=== PATIENT | male | born 1960 | race Hispanic/Latino ===

== ENCOUNTER 2021-08-04 08:52 | Inpatient (IN) | payer OTHER ==
--- OUTSIDE RECORDS SUMMARY | 2021-08-04 08:56 | XMS REPORT | Continuity of Care Document ---
:1960 Author Organization [facility] t Address [address] [place] [address] Dr. Rapp [address] [place] [id number] Care Team Providers Name Role Phone Unavailable Unavailable Unavailable Problems This patient has no known problems. Allergies, Adverse Reactions, Alerts This patient has no known allergies or adverse reactions. Medications This patient has no known medications. Procedures This patient has no known procedures. Results This patient has no known results.
[2021-08-04] MEDS ORDERED: NA CHLORIDE 0.9% 2,000 ML ONE (09:40)
[2021-08-04] MEDS ORDERED: NA CHLORIDE 0.9% 250 ML ONE (10:05)
[2021-08-04] MEDS ORDERED: PANTOPRAZOLE 40 MG INJ ONE (10:05)
[2021-08-04] MEDS ORDERED: NA CHLORIDE 0.9% 0 ML IV ONE (10:05)
[2021-08-04 10:14] LABS: Absolute Lymphocytes (CBC) 0.4 K/uL (0.7-4.9); Hematocrit 31.6 % (39.6-49.0); Lymphocytes % 3.3 % (15.3-44.8); MPV 9.7 fL (7.6-11.3); RBC Red Blood Cell Count 3.53 M/uL (4.33-5.43)
[2021-08-04 10:21] LABS: Protime INR 0.97
--- NOTE | 2021-08-04 10:24 | ER ---
Nurse's Notes [facility] Name: Michael Gaines Jr Age: 61 yrs Sex: Male : 1960 Arrival Date: 08/04/2021 Time: 08:54 Bed 24 Private MD: Calos Morris T Diagnosis: Fever, unspecified;Vomiting;Type 1 diabetes mellitus with hyperglycemia;Sepsis, unspecified organism Presentation: 08/04 09:22 Chief complaint: Spouse and/or significant other states: was seen in ED on Monday for vg1 dehydration and Hyperglycemia; states today nausea and vomiting and 'feeling weak'. Coronavirus screen: Vaccine status: Patient reports receiving the 2nd dose of the covid vaccine. Client denies travel out of the [place] in the last 14 days. Ebola Screen: Patient negative for fever greater than or equal to 101.5 degrees Fahrenheit, and additional compatible Ebola Virus Disease symptoms. Initial Sepsis Screen: Does the patient meet any 2 criteria? Temp <36.0*C (96.8*F)) or > 38.3*C (100.9*F). HR > 90 bpm. Yes Does the patient have a suspected source of infection? No. Patient's initial sepsis screen is negative. Risk Assessment: Do you want to hurt yourself or someone else? Patient reports no desire to harm self or others. Onset of symptoms was August 04, 2021. 09:22 Method Of Arrival: Wheelchair vg1 09:22 Acuity: CRIS 3 vg1 09:24 Note FSBG 298 in triage. vg1 Triage Assessment: 09:24 General: Appears uncomfortable, Behavior is calm, cooperative. Pain: Denies pain. vg1 Neuro: Level of Consciousness is awake, alert, obeys commands, Oriented to person, place, time, situation. GI: Reports nausea, vomiting. Historical: - Allergies: 09:24 No Known Allergies; vg1 - Home Meds: 09:24 amlodipine 10 mg tab [Active]; Aspirin EC Oral [Active]; atorvastatin 10 mg Oral tab vg1 [Active]; Basaglar KwikPen U-100 Insulin 100 unit/mL (3 mL) subcutaneous inpn [Active]; benazepril 40 mg Oral tab [Active]; clopidogrel 75 mg Oral tab [Active]; duloxetine 60 mg Oral CDRS [Active]; hydrochlorothiazide 25 mg Oral tab [Active]; metformin 750 mg Oral Tb24 [Active]; - PMHx: 09:24 CVA; diabetes mellitus; Hypertensive disorder; vg1 - PSHx: 11:00 Appendectomy; jh5 - Immunization history:: Client reports receiving the 2nd dose of the Covid vaccine. - Social history:: Smoking status: Patient denies any tobacco usage or history of. Screenin:59 Abuse screen: Denies threats or abuse. Denies injuries from another. Nutritional 5 screening: No deficits noted. Tuberculosis screening: No symptoms or risk factors identified. Fall Risk None identified. Assessment: 15:39 Reassessment: attempted report at this time; sheet writer was informed the RN to receive pt [facility] went to lunch and will have to call back. Vital Signs: 09:22 BP 158 / 74; Pulse 120; Resp 18; Temp 101.0(O); Pulse Ox 100% ; Weight 82.55 kg; Height vg1 5 ft. 7 in. (170.18 cm); Pain 0/10; 10:59 BP 129 / 81; Pulse 115; Resp 18; Temp 99.2; Pulse Ox 98% ; jh5 15:29 BP 137 / 57; Pulse 85; Resp 16; Temp 98.9(O); Pulse Ox 98% ; jh5 09:22 Body Mass Index 28.50 (82.55 kg, 170.18 cm) vg1 ED Course: 08:54 Patient arrived in ED. as 08:54 Calos Morris MD is Private Physician. as 09:22 Nikhil Pollard MD is Attending Physician. elsie 09:24 Triage completed. vg1 09:24 Arm band placed on. vg1 09:33 Michelle Poole, BRISEYDA is Primary Nurse. jh5 10:07 EKG done, by ED staff, reviewed by Nikhil Pollard MD. em1 10:17 Alyx Grace MD is Hospitalizing Provider. elsie 10:53 Chest Abd Pelvis Wo Con In Process Unspecified. EDMS 10:59 Patient has correct armband on for positive identification. Bed in low position. Call [facility] light in reach. Side rails up X 1. Side rails up X2. Adult w/ patient. 10:59 No provider procedures requiring assistance completed. jh5 11:06 COVID-19/FLU A+B/RSV (Document "Date of Onset" if Symptomatic) Sent. [facility] 11:10 Chest Single View XRAY In Process Unspecified. EDMS Administered Medications: 10:17 Not Given (Other Intervention Used): Tylenol Suppository 650 mg [place] once [facility] 10:19 Drug: NS 0.9% (30 ml/kg) 30 ml/kg {Note: left EJ.} Route: IV; Rate: bolus; Site: Other; [facility] 10:19 Drug: ProTONIX (pantoprazole) 8 mg/hr Route: IV; Rate: 25 ml/hr; Site: Other; [facility] 10:34 Drug: Cefepime 2 grams Route: IVPB; Rate: 200 ml/hr; Infused Over: 30 mins; Site: Other;[facility] 11:12 Follow up: IV Status: Completed infusion; IV Intake: 100ml [facility] 10:39 Drug: ProTONIX (pantoprazole) 80 mg Route: IVP; Site: Other; [facility] 10:46 Drug: Tylenol 650 mg Route: PO; [facility] 11:12 Drug: vancoMYCIN 1 grams Route: IVPB; Infused Over: 2 hrs; Site: Other; [facility] 11:13 Drug: NS 0.9% (30 ml/kg) 30 ml/kg Route: IV; Rate: bolus; Site: Other; [facility] Intake: 11:12 IV: 100ml; Total: 100ml. [facility] Outcome: 10:23 Decision to Hospitalize by Provider. [facility] 16:31 Patient left the ED. [facility] Signatures: Dispatcher [employer] EDMS Nikhil Pollard MD MD cha Martinez, Amelia as Martinez, Eric em1 Tania Patino, RN RN vg1 Michelle Poole, BRISEYDA RN 5 Corrections: (The following items were deleted from the chart) 09:25 09:22 Chief complaint: Spouse and/or significant other states: was seen in ED on Monday vg1 for dehydration and Hyperglycemia; states today nausea and vomiting and 'feeling weak'. vg1
--- NOTE | 2021-08-04 10:24 | EDPHYS ---
Physician Documentation [facility] Name: Michael Gaines Jr Age: 61 yrs Sex: Male : 1960 Arrival Date: 08/04/2021 Time: 08:54 Bed 24 Private MD: Calos Morris T ED Physician Nikhil Pollard HPI: 08/04 09:58 This 61 yrs old Male presents to ER via Wheelchair with complaints of Vomiting.elsie 09:58 The patient presents to the emergency department with nausea, vomiting, that is elsie intermittent. Onset: The symptoms/episode began/occurred 3 day(s) ago. Possible causes: unknown. The symptoms are aggravated by. Historical: - Allergies: 09:24 No Known Allergies; vg1 - Home Meds: 09:24 amlodipine 10 mg tab [Active]; Aspirin EC Oral [Active]; atorvastatin 10 mg Oral tab vg1 [Active]; Basaglar KwikPen U-100 Insulin 100 unit/mL (3 mL) subcutaneous inpn [Active]; benazepril 40 mg Oral tab [Active]; clopidogrel 75 mg Oral tab [Active]; duloxetine 60 mg Oral CDRS [Active]; hydrochlorothiazide 25 mg Oral tab [Active]; metformin 750 mg Oral Tb24 [Active]; - PMHx: 09:24 CVA; diabetes mellitus; Hypertensive disorder; vg1 - PSHx: 11:00 Appendectomy; jh5 - Immunization history:: Client reports receiving the 2nd dose of the Covid vaccine. - Social history:: Smoking status: Patient denies any tobacco usage or history of. ROS: 10:01 Eyes: Negative for injury, pain, redness, and discharge, ENT: Negative for injury, elsie pain, and discharge, Neck: Negative for injury, pain, and swelling, Respiratory: Negative for shortness of breath, cough, wheezing, and pleuritic chest pain, Abdomen/GI: Negative for abdominal pain, nausea, vomiting, diarrhea, and constipation, Back: Negative for injury and pain, : Negative for injury, bleeding, discharge, and swelling, MS/Extremity: Negative for injury and deformity, Skin: Negative for injury, rash, and discoloration, Neuro: Negative for headache, weakness, numbness, tingling, and seizure, Psych: Negative for depression, anxiety, suicide ideation, homicidal ideation, and hallucinations, Allergy/Immunology: Negative for hives, rash, and allergies, Endocrine: Negative for neck swelling, polydipsia, polyuria, polyphagia, and marked weight changes, Hematologic/Lymphatic: Negative for swollen nodes, abnormal bleeding, and unusual bruising. 10:01 Cardiovascular: Positive for palpitations. 10:01 Respiratory: Positive for cough. 10:01 Abdomen/GI: Positive for nausea and vomiting. Exam: 10:01 Constitutional: This is a well developed, well nourished patient who is awake, alert, elsie and in no acute distress. Head/Face: Normocephalic, atraumatic. Eyes: Pupils equal round and reactive to light, extra-ocular motions intact. Lids and lashes normal. Conjunctiva and sclera are non-icteric and not injected. Cornea within normal limits. Periorbital areas with no swelling, redness, or edema. ENT: Nares patent. No nasal discharge, no septal abnormalities noted. Tympanic membranes are normal and external auditory canals are clear. Oropharynx with no redness, swelling, or masses, exudates, or evidence of obstruction, uvula midline. Mucous membranes moist. Neck: Trachea midline, no thyromegaly or masses palpated, and no cervical lymphadenopathy. Supple, full range of motion without nuchal rigidity, or vertebral point tenderness. No Meningismus. Chest/axilla: Normal chest wall appearance and motion. Nontender with no deformity. No lesions are appreciated. Respiratory: Lungs have equal breath sounds bilaterally, clear to auscultation and percussion. No rales, rhonchi or wheezes noted. No increased work of breathing, no retractions or nasal flaring. Back: No spinal tenderness. No costovertebral tenderness. Full range of motion. Male : Normal genitalia with no discharge or lesions. Skin: Warm, dry with normal turgor. Normal color with no rashes, no lesions, and no evidence of cellulitis. MS/ Extremity: Pulses equal, no cyanosis. Neurovascular intact. Full, normal range of motion. Neuro: Awake and alert, GCS 15, oriented to person, place, time, and situation. Cranial nerves II-XII grossly intact. Motor strength 5/5 in all extremities. Sensory grossly intact. Cerebellar exam normal. Normal gait. Psych: Awake, alert, with orientation to person, place and time. Behavior, mood, and affect are within normal limits. 10:01 Cardiovascular: Rate: tachycardic, Rhythm: regular, Pulses: Pulses are 4+ in bilateral radial, brachial, femoral, popliteal, posterior tibial and and dorsalis pedis arteries.. Heart sounds: normal, Edema: is not appreciated, JVD: is not appreciated. 10:01 ECG was reviewed by the Attending Physician. Vital Signs: 09:22 BP 158 / 74; Pulse 120; Resp 18; Temp 101.0(O); Pulse Ox 100% ; Weight 82.55 kg; Height vg1 5 ft. 7 in. (170.18 cm); Pain 0/10; 10:59 BP 129 / 81; Pulse 115; Resp 18; Temp 99.2; Pulse Ox 98% ; jh5 15:29 BP 137 / 57; Pulse 85; Resp 16; Temp 98.9(O); Pulse Ox 98% ; 5 09:22 Body Mass Index 28.50 (82.55 kg, 170.18 cm) vg1 Procedures: 10:23 Peripheral line: by aseptic technique a peripheral line was placed in the left external elsie jugular vein. MDM: 09:27 Patient medically screened. [facility] 10:03 Differential diagnosis: Nonspecific abd pain, gastritis, gastroenteritis. Differential elsie Diagnosis altered mental status, sepsis. Data reviewed: vital signs, nurses notes, lab test result(s), EKG, radiologic studies, CT scan, plain films. Data interpreted: panel monitor: rate is 120 beats/min, rhythm is regular, Pulse oximetry: on room air. Test interpretation: by ED physician or midlevel provider: ECG, plain radiologic studies. Counseling: I had a detailed discussion with the patient and/or guardian regarding: the presence of at least one elevated blood pressure reading (>120/80) during this emergency department visit, lab results, radiology results, the need for further work-up and treatment in the hospital. 08/04 09:33 Order name: Glucose, Ancillary Testing; Complete Time: 10:34 EDOR 08/04 09:34 Order name: Amylase, Serum [facility] 08/04 09:34 Order name: Basic Metabolic Panel [facility] 08/04 09:34 Order name: Blood Culture Adult (2) [facility] 08/04 09:34 Order name: CBC with Diff; Complete Time: 10:34 [facility] 08/04 09:34 Order name: CPK; Complete Time: 10:34 [facility] 08/04 09:34 Order name: Ckmb; Complete Time: 10:34 [facility] 08/04 09:34 Order name: LFT's; Complete Time: 10:34 [facility] 08/04 09:34 Order name: Lactate; Complete Time: 10:34 [facility] 08/04 09:34 Order name: Lipase; Complete Time: 10:34 [facility] 08/04 09:34 Order name: Procalcitonin [facility] 08/04 09:34 Order name: Protime (+inr); Complete Time: 10:34 [facility] 08/04 09:34 Order name: Ptt, Activated; Complete Time: 10:34 [facility] 08/04 09:34 Order name: Troponin HS; Complete Time: 10:34 [facility] 08/04 09:34 Order name: Urine Microscopic Only [facility] 08/04 09:34 Order name: Chest Single View XRAY [facility] 08/04 09:34 Order name: Amylase; Complete Time: 10:34 [facility] 08/04 09:34 Order name: Basic Metabolic Panel; Complete Time: 10:34 [facility] 08/04 09:53 Order name: Magnesium [facility] 08/04 09:53 Order name: NT PRO-BNP [facility] 08/04 09:53 Order name: COVID-19/FLU A+B/RSV (Document "Date of Onset" if Symptomatic) [facility] 08/04 09:53 Order name: AMMONIA; Complete Time: 10:34 [facility] 08/04 10:48 Order name: Chest Abd Pelvis Wo Con [facility] 08/04 11:05 Order name: Urine Dipstick-Ancillary [facility] 08/04 09:34 Order name: Accucheck; Complete Time: 09:36 [facility] 08/04 09:34 Order name: Cardiac monitoring; Complete Time: 09:59 [facility] 08/04 09:34 Order name: EKG - Nurse/Tech; Complete Time: 09:59 [facility] 08/04 09:34 Order name: IV Saline Lock - Large Bore; Complete Time: 09:59 [facility] 08/04 09:34 Order name: Labs collected and sent; Complete Time: 09:59 [facility] 08/04 09:34 Order name: O2 Per Protocol; Complete Time: 09:34 [facility] 08/04 09:34 Order name: O2 Sat Monitoring; Complete Time: 09:34 [facility] 08/04 09:34 Order name: Urine Dipstick-Ancillary (obtain specimen); Complete Time: 11:13 [facility] 08/04 09:53 Order name: EKG; Complete Time: 09:54 [facility] 08/04 09:53 Order name: IV Saline Lock; Complete Time: 10:19 [facility] 08/04 09:53 Order name: IV Saline Lock - Large Bore; Complete Time: 10:21 [facility] EC:01 Rate is 108 beats/min. QRS [place] is Normal. [place] interval is normal. QRS interval is elsie normal. QT interval is normal. No Q waves. T waves are Normal. No ST changes noted. Clinical impression: Sinus tachycardia. Interpreted by me. Reviewed by me. Administered Medications: 10:17 Not Given (Other Intervention Used): Tylenol Suppository 650 mg [place] once [facility] 10:19 Drug: NS 0.9% (30 ml/kg) 30 ml/kg {Note: left EJ.} Route: IV; Rate: bolus; Site: Other; [facility] 10:19 Drug: ProTONIX (pantoprazole) 8 mg/hr Route: IV; Rate: 25 ml/hr; Site: Other; [facility] 10:34 Drug: Cefepime 2 grams Route: IVPB; Rate: 200 ml/hr; Infused Over: 30 mins; Site: Other;[facility] 11:12 Follow up: IV Status: Completed infusion; IV Intake: 100ml [facility] 10:39 Drug: ProTONIX (pantoprazole) 80 mg Route: IVP; Site: Other; [facility] 10:46 Drug: Tylenol 650 mg Route: PO; [facility] 11:12 Drug: vancoMYCIN 1 grams Route: IVPB; Infused Over: 2 hrs; Site: Other; [facility] 11:13 Drug: NS 0.9% (30 ml/kg) 30 ml/kg Route: IV; Rate: bolus; Site: Other; [facility] Disposition Summary: 08/04/21 10:23 Hospitalization Ordered Hospitalization Status: Inpatient Admission elsie Provider: Alyx Grace cha Location: Telemetry/MedSurg (Inpatient) elsie Condition: Fair elsie Problem: new elsie Symptoms: have improved elsie Bed/Room Type: Standard [facility] Room Assignment: 215(08/04/21 15:25) bd Diagnosis - Fever, unspecified elsie - Vomiting elsie - Type 1 diabetes mellitus with hyperglycemia elsie - Sepsis, unspecified organism elsie Forms: - Medication Reconciliation Form elsie - SBAR form elsie Signatures: Dispatcher [employer] EDMS Chloe Paez Corey, MD MD cha Garcia, Victoria RN RN vg1 Michelle Poole RN RN jh5 Corrections: (The following items were deleted from the chart) 10:48 09:54 Chest Abdomen Pelvis W Con+CT.RAD.BRZ ordered. EDMS EDMS 15:25 10:23 elsie olvera
[2021-08-04 10:30] LABS: ALT/SGPT 18 U/L (12-78); AST/SGOT 16 U/L (15-37); Albumin 2.6 g/dL (3.4-5.0); Alkaline Phosphatase 80 U/L (45-117); Amylase 95 U/L (25-115); BUN Blood Urea Nitrogen 50 mg/dL (7-18); Bicarbonate 21 mmol/L (21-32); Bilirubin Direct 0.3 mg/dL (0-0.2); Bilirubin Total 0.7 mg/dL (0.2-1.0); Creatine Phosphokinase 176 U/L (39-308); Glucose Level 315 mg/dL (74-106); Lipase 199 U/L (73-393); Potassium 3.6 mmol/L (3.5-5.1); Protein, Total 7.7 g/dL (6.4-8.2); Sodium Level 134 mmol/L (136-145)
[2021-08-04] MEDS ORDERED: CEFEPIME 2 GM in NA CHLORIDE 0.9% 100 ML IV ONE (10:30)
[2021-08-04 10:31] LABS: CKMB Creatine Kinase MB < 1.0 ng/mL (1.0-3.6)
[2021-08-04] MEDS ORDERED: VANCOMYCIN 1 GM/VIAL ONE (10:45)
[2021-08-04] MEDS ORDERED: ACETAMINOPHEN 325 MG TABLET ONE (10:45)
[2021-08-04] MEDS ORDERED: NA CHLORIDE 0.9% 500 ML ONE (10:45)
[2021-08-04 11:06] LABS: Urine Blood 2+ (Negative); Urine Glucose 3+ (Negative); Urine Protein 3+ (Negative); Urine Specific Gravity 1.025 (1.005-1.030)
--- NOTE | 2021-08-04 11:07 | RAD REPORT ---
EXAM DESCRIPTION: CT - Chest Abd Pelvis Wo Con - 08/04/2021 10:53 am CLINICAL HISTORY: Congestion;Cough COMPARISON: Chest Single View dated 08/02/2021 TECHNIQUE: Axial 5 millimeter thick images of the chest, abdomen and pelvis were obtained without IV contrast. Oral contrast was administered. All CT scans are performed using dose optimization technique as appropriate and may include automated exposure control or mA/KV adjustment according to patient size. FINDINGS: A 5 centimeter sized area of dense consolidation is present in the posterior gutter left l ower lobe. A few air bronchograms are present. In the acute clinical setting this is most likely cons olidated pneumonia. No cavitation. Correlation is needed with clinical presentation. Continued follow -up is needed to assure complete clearing. On the superior left lateral margin of this consolidation there is an 8 millimeter rounded noncalcified pulmonary nodule. Elsewhere in the patient has a few bulla and bleb in the sub pleural of the each apex. No pneumothora x or pleural effusion. No chest wall mass or abnormal axillary lymphadenopathy seen. Mediastinal an d hilar regions show no mass or lymphadenopathy. No significant cardiac finding. The liver, spleen and pancreas show no significant findings for non contrast imaging. Gallbladder an d biliary tree are normal. No hydronephrosis or suspicious renal mass. A 2 centimeter low-density echogenic mass projecting from the anterior upper pole right kidney shows attenuation value consistent with simple cyst. Isodense m asses and pyelonephritis cannot be excluded on non contrast imaging. No adrenal abnormalities. No ur inary bladder abnormalities. No dilated bowel loops or focal ball bowel wall thickening. No free air, free fluid or inflammatory stranding. No hernia, mass or bulky lymphadenopathy. No significant bone or vascular finding. IMPRESSION: CT chest imaging shows 5 centimeter sized area of consolidation posterior gutter on the left. In the acute clinical setting this is most likely pneumonia and can be correlated with clinical presentation. The posterior gutter left mass needs continued follow-up to assure complete clearing. There is an adj acent 8 mm noncalcified nodule that can be monitored as well. No other acute or emergent chest abdomen or pelvis findings.
[2021-08-04 11:21] LABS: Urine Bacteria <20 /HPF (NONE SEEN)
[2021-08-04 11:22] LABS: Urine Amorphous Sediment 2+ /HPF (NONE SEEN); Urine Mucus LIGHT /HPF (NONE SEEN)
--- NOTE | 2021-08-04 11:32 | RAD REPORT ---
EXAM DESCRIPTION: RAD - Chest Single View - 08/04/2021 11:10 am CLINICAL HISTORY: FEVER COMPARISON: August 02 TECHNIQUE: AP portable chest image was obtained 08/04/2021 11:10 am . FINDINGS: Lungs are clear. Interstitial markings match comparison study. Heart and vasculature are n ormal. No measurable pleural effusion and no pneumothorax. No acute bony abnormality seen. No acute a ortic findings suspected. IMPRESSION: No acute cardiopulmonary process. No significant change from comparison study.
[2021-08-04 12:20] LABS: SARS-COV-2 RT PCR NEGATIVE (NEGATIVE)
--- NOTE | 2021-08-04 15:09 | P.HP ---
Certification for Inpatient Patient admitted to: Inpatient With expected LOS: >2 Midnights Practitioner: I am a practitioner with admitting privileges, knowledge of patient current condition, hospital course, and medical plan of care. Services: Services provided to patient in accordance with Admission requirements found in Title 42 Section 412.3 of the Code of Federal Regulations Patient History Date of Service: 08/04/21 Reason for admission: Nausea and vomiting History of Present Illness: 61-year-old gentleman with a history of diabetes mellitus on insulin therapy, history of CVA presented to the emergency department for nausea and vomiting and fever. Patient was in the ED a couple of days ago for generalized weakness, noted to have low-grade fever. Patient was hydrated with normal saline and subsequently discharged from the ED. He developed fever again today followed by vomiting. He denied any diarrhea. Patient noted to be febrile in the ED, mild leukocytosis and tachycardic meeting criteria for sepsis. He was given IV antibiotics and hydrated with normal saline. CT chest/abdomen/pelvis demonstrated 5 cm consolidation on the posterior gutter on the left, 8 mm noncalcified nodule, kidney cyst and adrenal nodule. Patient hospitalized for further evaluation and management of sepsis. Allergies NKDA Allergy (Uncoded 06/21/15 17:47) Unknown Home Medications: Benazepril HCl 10 mg PO DAILY 07/18/15 Aspirin Chewable [Aspirin Chewable*] 81 mg PO DAILY 07/21/15 metroNIDAZOLE [Flagyl] 500 mg PO Q8H #21 tablet 07/24/15 - Past Medical/Surgical History Diabetic: No -: htn -: tia 06/20/2015 -: [facility] 06/20/15 -: Insulin-dependent diabetes -: appendectomy 07/18/15 - Family History Family History: Reviewed- Non-Contributory - Social History Smoking Status: Never smoker Alcohol use: Yes CD- Drugs: No Caffeine use: Yes Place of Residence: Home Review of Systems Other: Patient reports nonproductive cough. Has a rash on his face. Except as documented, all other systems reviewed and negative. Physical Examination - Physical Exam General: Alert, In no apparent distress, Oriented x3, Obese HEENT: Normocephalic, Mucous membr. moist/pink, EOMI, Sclerae nonicteric Neck: Supple, JVD not distended Respiratory: Clear to auscultation bilaterally, Normal air movement Cardiovascular: No edema, Regular rate/rhythm, Normal S1 S2, No murmurs Capillary refill: <2 Seconds Gastrointestinal: Normal bowel sounds, Soft and benign, Non-distended, No tenderness Musculoskeletal: No swelling, No tenderness Integumentary: No cyanosis, Rash(es) (Erythematous papular rash on the face) Neurological: Normal speech, Normal strength at 5/5 x4 extr Lymphatics: No axilla or inguinal lymphadenopathy - Studies Laboratory Data (last 24 hrs) 08/04/21 09:49: PT 11.1, INR 0.97, APTT 24.5 08/04/21 09:49: WBC 11.90 H, Hgb 10.4 L, Hct 31.6 L, Plt Count 270 08/04/21 09:49: Sodium 134 L, Potassium 3.6, BUN 50 H, Creatinine 1.80 H, Glucose 315 H, Total Bilirubin 0.7, AST 16, ALT 18, Alkaline Phosphatase 80, Amylase 95, Lipase 199 Assessment and Plan - Problems (Diagnosis) (1) Sepsis Current Visit: Yes Status: Acute (2) Diabetes mellitus type 2 in obese Current Visit: Yes Status: Acute (3) History of CVA (cerebrovascular accident) Current Visit: Yes Status: Acute (4) Acute renal failure Current Visit: Yes Status: Acute - Plan Admit patient to the medical floor. Procalcitonin elevated. Lactate is normal. Sepsis protocol initiated in the ED. Patient given IV normal saline bolus and IV cefepime. We will continue to hydrate with normal. Empiric antibiotics-IV cefepime and IV vancomycin. I suspect acute viral syndrome. COVID-19 test is negative. Supportive measures-clear liquid diet as tolerated, antiemetics, antipyretics. Insulin sliding scale and long-acting insulin for glucose management. Follow blood cultures. UA with no significant evidence of UTI. PT to evaluate due to generalized weakness. - Advance Directives Does patient have a Living Will: No Does patient have a Durable POA for Healthcare: No
[2021-08-04 19:53] VITALS: BMI 27.7
[2021-08-04] MEDS ORDERED: ONDANSETRON 4 MG/2 ML VIAL IV PRN (20:25)
[2021-08-04] MEDS ORDERED: VANCOMYCIN 1 GM in NA CHLORIDE 0.9% 250 ML IVPB SCH (20:25)
[2021-08-04] MEDS ORDERED: VANCOMYCIN 500 MG in NA CHLORIDE 0.9% 100 ML IVPB ONE (20:45)
[2021-08-04] MEDS ORDERED: CEFEPIME 1 GM in NA CHLORIDE 0.9% 100 ML IV SCH (21:00)
[2021-08-04] MEDS: INSULIN -REGULAR HUMAN 50 UNIT/0.5 ML ML SQ SCH (21:42)
[2021-08-04] MEDS: NA CHLORIDE 0.9% 1,000 ML IV SCH (21:42)
[2021-08-05] MEDS: ACETAMINOPHEN 500 MG TAB PO PRN ×2 (05:18→17:18)
[2021-08-05 06:07] LABS: Absolute Lymphocytes (CBC) 0.4 K/uL (0.7-4.9); Lymphocytes % 4.2 % (15.3-44.8); MPV 9.4 fL (7.6-11.3); RBC Red Blood Cell Count 3.12 M/uL (4.33-5.43)
[2021-08-05 06:24] LABS: Albumin 2.1 g/dL (3.4-5.0); Bilirubin Total 0.6 mg/dL (0.2-1.0); Phosphorus 2.7 mg/dL (2.5-4.9); Potassium 3.8 mmol/L (3.5-5.1); Protein, Total 6.7 g/dL (6.4-8.2)
[2021-08-05 08:39] LABS: Blood Morphology Comment NOT SEEN (NOT SEEN); Platelet Estimate ADEQ
[2021-08-05] MEDS: INSULIN -REGULAR HUMAN 50 UNIT/0.5 ML ML SQ SCH ×4 (08:55→21:04)
[2021-08-05] MEDS: ENOXAPARIN 40 MG/0.4 ML SQ SCH (08:55)
[2021-08-05] MEDS: NA CHLORIDE 0.9% 1,000 ML IV SCH (08:56)
[2021-08-05] MEDS ORDERED: POTASSIUM CL SA 10 MEQ TAB PO ONE (09:00)
[2021-08-05] MEDS ORDERED: CEFEPIME 2 GM in NA CHLORIDE 0.9% 100 ML IV SCH (10:00)
[2021-08-05 10:39] LABS: Magnesium 2.6
[2021-08-05 12:33] LABS: Urine Appearance CLOUDY (Clear); Urine Bilirubin NEGATIVE (Negative); Urine Blood 2+ (Negative); Urine Color YELLOW (Yellow); Urine Glucose 3+ (Negative); Urine Protein 2+ (Negative); Urine Urobilinogen 0.2 mg/dL (0.2-1.0); Urine pH 5.5 (5.0-7.0)
[2021-08-05 12:48] LABS: Urine Microscopic Reflex ORDER UMIC
[2021-08-05 13:04] LABS: Urine Amorphous Sediment 1+ /HPF (NONE SEEN); Urine Bacteria <20 /HPF (NONE SEEN); Urine Mucus 1+ /HPF (NONE SEEN); Urine RBC <5 /HPF (NONE SEEN)
--- NOTE | 2021-08-05 13:43 | P.PN ---
Subjective Date of Service: 08/05/21 Chief Complaint: Nausea and vomiting Patient states he feels much better today. He was experiencing low-grade fever this morning. He denies any pain. Physical Examination - Vital Signs Temperature: 97.4 F Blood Pressure: 165/74 Pulse: 89 Respirations: 19 Pulse Ox (%): 97 - Physical Exam General: Alert, In no apparent distress HEENT: Mucous membr. moist/pink Neck: JVD not distended Respiratory: Clear to auscultation bilaterally, Normal air movement Cardiovascular: Regular rate/rhythm, Normal S1 S2 Gastrointestinal: Soft and benign, Non-distended, No tenderness Musculoskeletal: No swelling Integumentary: No rashes Neurological: Normal strength at 5/5 x4 extr - Studies Laboratory Data (last 24 hrs) 08/04/21 09:49: Magnesium 2.6 Assessment And Plan - Current Problems (Diagnosis) (1) Sepsis Current Visit: Yes Status: Acute (2) Diabetes mellitus type 2 in obese Current Visit: Yes Status: Acute (3) History of CVA (cerebrovascular accident) Current Visit: Yes Status: Acute (4) Acute renal failure Current Visit: Yes Status: Acute - Plan Patient with low-grade fever. Mild leukocytosis resolved. Continue IV hydration Continue IV cefepime and IV vancomycin for 1 more day. I suspect acute viral syndrome. COVID-19 test is negative. Blood cultures: No growth today. Supportive measures- antiemetics, antipyretics. Advance diet as tolerated Insulin sliding scale and long-acting insulin for glucose management. Follow blood cultures. PT.
[2021-08-05] MEDS ORDERED: VANCOMYCIN 1.5 GM in NA CHLORIDE 0.9% 500 ML IVPB SCH (17:00)
[2021-08-05 17:09] LABS: Magnesium 2.5
[2021-08-05] MEDS: CEFEPIME 2 GM in NA CHLORIDE 0.9% 100 ML IV SCH (21:03)
[2021-08-05] MEDS: ATORVASTATIN 10 MG TAB PO SCH (21:04)
[2021-08-06] MEDS: HYDRALAZINE HCL 20 MG/ML VIAL IV PRN ×2 (02:44→21:33)
[2021-08-06 06:29] LABS: Absolute Lymphocytes (CBC) 0.5 K/uL (0.7-4.9); Hematocrit 28.2 % (39.6-49.0); Lymphocytes % 5.3 % (15.3-44.8); MPV 9.5 fL (7.6-11.3)
[2021-08-06 06:40] LABS: Potassium 3.4 mmol/L (3.5-5.1)
[2021-08-06] MEDS: DULOXETINE 30 MG CAP PO SCH (08:38)
[2021-08-06] MEDS: ASPIRIN EC 81 MG TAB PO SCH (08:38)
[2021-08-06] MEDS: AMLODIPINE 10 MG TAB PO SCH (08:39)
[2021-08-06] MEDS: CLOPIDOGREL 75 MG TABLET PO SCH (08:39)
[2021-08-06] MEDS: CEFEPIME 2 GM in NA CHLORIDE 0.9% 100 ML IV SCH ×2 (08:40→21:00)
[2021-08-06] MEDS: ENOXAPARIN 40 MG/0.4 ML SQ SCH (08:41)
[2021-08-06] MEDS: cloNIDine HCL 0.1 MG TAB PO SCH (08:41)
[2021-08-06] MEDS: ACETAMINOPHEN 500 MG TAB PO PRN ×2 (08:41→17:19)
[2021-08-06] MEDS: INSULIN -REGULAR HUMAN 50 UNIT/0.5 ML ML SQ SCH ×4 (08:42→20:59)
[2021-08-06] MEDS ORDERED: HOME MED 1 EA UNK (Insulin Glargine,Hum.Rec.Anlog [Basaglar Kwikpen U-100] 100 UNIT/ML Ins SQ SCH (09:00)
[2021-08-06] MEDS ORDERED: POTASSIUM CL SA 10 MEQ TAB PO ONE (09:00)
[2021-08-06] MEDS ORDERED: INSULIN GLARGINE 100 UNIT/ML SQ SCH (09:00)
[2021-08-06] MEDS ORDERED: VANCOMYCIN 1.5 GM in NA CHLORIDE 0.9% 500 ML IVPB SCH (11:00)
--- NOTE | 2021-08-06 15:47 | P.PN ---
Subjective Date of Service: 08/06/21 Chief Complaint: Nausea and vomiting Patient continues to experience intermittent fever. He is also complaining of fatigue He denies any pain. Physical Examination - Vital Signs Temperature: 98 F Blood Pressure: 133/62 Pulse: 71 Respirations: 20 Pulse Ox (%): 96 - Physical Exam General: Alert, In no apparent distress, Oriented x3 HEENT: Mucous membr. moist/pink Neck: JVD not distended Respiratory: Clear to auscultation bilaterally, Normal air movement Cardiovascular: No edema, Regular rate/rhythm, Normal S1 S2 Gastrointestinal: Soft and benign, Non-distended, No tenderness Musculoskeletal: No swelling, No tenderness Integumentary: No rashes, No cyanosis Neurological: Normal strength at 5/5 x4 extr Assessment And Plan - Current Problems (Diagnosis) (1) Sepsis Current Visit: Yes Status: Acute (2) Diabetes mellitus type 2 in obese Current Visit: Yes Status: Acute (3) History of CVA (cerebrovascular accident) Current Visit: Yes Status: Acute (4) Acute renal failure Current Visit: Yes Status: Acute (5) Pneumonia Current Visit: Yes Status: Acute - Plan Patient with intermittent fever. Continue IV hydration Continue IV cefepime and IV vancomycin given persistent fever. Blood cultures: No growth to date I suspect acute viral syndrome. COVID-19 test is negative. Supportive measures- antiemetics, antipyretics. Advance diet as tolerated Insulin sliding scale and long-acting insulin for glucose management. Continue PT.
[2021-08-06] MEDS: VANCOMYCIN 1.5 GM in NA CHLORIDE 0.9% 500 ML IVPB SCH (17:18)
[2021-08-06] MEDS: ATORVASTATIN 10 MG TAB PO SCH (20:59)
[2021-08-07] MEDS: ACETAMINOPHEN 500 MG TAB PO PRN (00:37)
[2021-08-07] MEDS: HYDRALAZINE HCL 20 MG/ML VIAL IV PRN ×2 (05:17→21:00)
[2021-08-07 06:04] LABS: Absolute Lymphocytes (CBC) 0.6 K/uL (0.7-4.9); Hematocrit 27.7 % (39.6-49.0); Lymphocytes % 7.3 % (15.3-44.8); MPV 9.5 fL (7.6-11.3); RBC Red Blood Cell Count 3.14 M/uL (4.33-5.43)
[2021-08-07 06:23] LABS: Potassium 3.3 mmol/L (3.5-5.1)
[2021-08-07] MEDS: DULOXETINE 30 MG CAP PO SCH (08:31)
[2021-08-07] MEDS: cloNIDine HCL 0.1 MG TAB PO SCH (08:31)
[2021-08-07] MEDS: AMLODIPINE 10 MG TAB PO SCH (08:32)
[2021-08-07] MEDS: ASPIRIN EC 81 MG TAB PO SCH (08:33)
[2021-08-07] MEDS: ENOXAPARIN 40 MG/0.4 ML SQ SCH (08:33)
[2021-08-07] MEDS: CLOPIDOGREL 75 MG TABLET PO SCH (08:33)
[2021-08-07] MEDS: CEFEPIME 2 GM in NA CHLORIDE 0.9% 100 ML IV SCH ×2 (08:34→20:50)
[2021-08-07] MEDS: INSULIN -REGULAR HUMAN 50 UNIT/0.5 ML ML SQ SCH ×4 (08:34→20:50)
[2021-08-07] MEDS: INSULIN GLARGINE 100 UNIT/ML SQ SCH (08:35)
[2021-08-07] MEDS ORDERED: POTASSIUM CL SA 10 MEQ TAB PO ONE ×2 (09:00→10:00)
--- NOTE | 2021-08-07 11:37 | P.PN ---
Subjective Date of Service: 08/07/21 Chief Complaint: Nausea and vomiting Patient states he feels better today. He wants to get up and walk. He denies any pain. No fever since this morning. He had intermittent fever yesterday. Physical Examination - Vital Signs Temperature: 99 F Blood Pressure: 193/86 Pulse: 98 Respirations: 23 Pulse Ox (%): 95 - Physical Exam General: Alert, In no apparent distress, Oriented x3 HEENT: Mucous membr. moist/pink Neck: JVD not distended Respiratory: Clear to auscultation bilaterally, Normal air movement Cardiovascular: No edema, Regular rate/rhythm, Normal S1 S2 Gastrointestinal: Soft and benign, Non-distended, No tenderness Musculoskeletal: No swelling Integumentary: No rashes, No cyanosis Neurological: Normal speech, Normal strength at 5/5 x4 extr Assessment And Plan - Current Problems (Diagnosis) (1) Sepsis Current Visit: Yes Status: Acute (2) Diabetes mellitus type 2 in obese Current Visit: Yes Status: Acute (3) History of CVA (cerebrovascular accident) Current Visit: Yes Status: Acute (4) Acute renal failure Current Visit: Yes Status: Acute (5) Pneumonia Current Visit: Yes Status: Acute - Plan No fever since this morning Continue IV hydration Continue IV cefepime and IV vancomycin given persistent fever. Acute renal failure resolved. Resume other home antihypertensives for blood pressure control Blood cultures: No growth to date I suspect acute viral syndrome. COVID-19 test is negative. Supportive measures- antiemetics, antipyretics. Advance diet as tolerated Insulin sliding scale and long-acting insulin for glucose management. PT to evaluate mobility given history of CVA.
[2021-08-07] MEDS: VANCOMYCIN 1.5 GM in NA CHLORIDE 0.9% 500 ML IVPB SCH (12:09)
[2021-08-07] MEDS: BENAZEPRIL 10 MG TAB PO SCH (12:13)
[2021-08-07] MEDS: hydroCHLOROthiazide 25 MG TAB PO SCH (12:14)
[2021-08-07] MEDS: ATORVASTATIN 10 MG TAB PO SCH (20:50)
[2021-08-07] MEDS ORDERED: MELATONIN 5 MG TABLET PO PRN (22:11)
[2021-08-08] MEDS: VANCOMYCIN 1.5 GM in NA CHLORIDE 0.9% 500 ML IVPB SCH (05:00)
[2021-08-08] MEDS: INSULIN -REGULAR HUMAN 50 UNIT/0.5 ML ML SQ SCH ×4 (07:15→21:37)
[2021-08-08] MEDS ORDERED: CEFEPIME 2 GM VIAL ONE (07:40)
[2021-08-08] MEDS ORDERED: NA CHLORIDE 0.9% 100 ML ONE (07:44)
[2021-08-08] MEDS: AMLODIPINE 10 MG TAB PO SCH (08:50)
[2021-08-08] MEDS: DULOXETINE 30 MG CAP PO SCH (08:50)
[2021-08-08] MEDS: ASPIRIN EC 81 MG TAB PO SCH (08:50)
[2021-08-08] MEDS: cloNIDine HCL 0.1 MG TAB PO SCH (08:51)
[2021-08-08] MEDS: ENOXAPARIN 40 MG/0.4 ML SQ SCH (08:51)
[2021-08-08] MEDS: BENAZEPRIL 10 MG TAB PO SCH (08:51)
[2021-08-08] MEDS: CLOPIDOGREL 75 MG TABLET PO SCH (08:51)
[2021-08-08] MEDS: hydroCHLOROthiazide 25 MG TAB PO SCH (08:51)
[2021-08-08] MEDS: CEFEPIME 2 GM in NA CHLORIDE 0.9% 100 ML IV SCH ×2 (08:52→21:36)
[2021-08-08] MEDS: INSULIN GLARGINE 100 UNIT/ML SQ SCH (08:53)
[2021-08-08] MEDS ORDERED: VANCOMYCIN 1.5 GM in NA CHLORIDE 0.9% 500 ML IVPB SCH (11:00)
--- NOTE | 2021-08-08 13:43 | P.PN ---
Subjective Date of Service: 08/08/21 Chief Complaint: Nausea and vomiting Patient has no new complaints except hiccups. No fever since yesterday. He walked with physical therapy using a walker. Unsteady gait noted during PT Physical Examination - Vital Signs Temperature: 99.3 F Blood Pressure: 177/74 Pulse: 84 Respirations: 20 Pulse Ox (%): 95 - Physical Exam General: Alert, In no apparent distress, Oriented x3 HEENT: Mucous membr. moist/pink Neck: JVD not distended Respiratory: Clear to auscultation bilaterally, Normal air movement Cardiovascular: No edema, Regular rate/rhythm, Normal S1 S2 Gastrointestinal: Soft and benign, Non-distended, No tenderness Musculoskeletal: No swelling Integumentary: Other (Papular erythematous rash on the face) Neurological: Other (No focal motor deficit) Assessment And Plan - Current Problems (Diagnosis) (1) Sepsis Current Visit: Yes Status: Acute (2) Diabetes mellitus type 2 in obese Current Visit: Yes Status: Acute (3) History of CVA (cerebrovascular accident) Current Visit: Yes Status: Acute (4) Acute renal failure Current Visit: Yes Status: Acute (5) Pneumonia Current Visit: Yes Status: Acute - Plan No fever since yesterday Oral intake has improved. Blood cultures: No growth to date Continue IV cefepime and IV vancomycin for 1 more day. Acute renal failure resolved. Continue home antihypertensives for blood pressure control I suspect acute viral syndrome. COVID-19 test is negative. Supportive measures- antiemetics, antipyretics. Diet as tolerated Insulin sliding scale and long-acting insulin for glucose management. Patient with unsteady gait. He may benefit from skilled rehab. Social service consulted for SNF placement.
[2021-08-08] MEDS: HYDRALAZINE HCL 20 MG/ML VIAL IV PRN (16:46)
[2021-08-08] MEDS: ATORVASTATIN 10 MG TAB PO SCH (21:36)
[2021-08-09] MEDS: HYDRALAZINE HCL 20 MG/ML VIAL IV PRN (05:10)
[2021-08-09 06:06] LABS: Absolute Lymphocytes (CBC) 0.6 K/uL (0.7-4.9); Hematocrit 26.9 % (39.6-49.0); Lymphocytes % 5.9 % (15.3-44.8); MPV 8.4 fL (7.6-11.3); RBC Red Blood Cell Count 3.03 M/uL (4.33-5.43)
[2021-08-09] MEDS ORDERED: NA CHLORIDE 0.9% 100 ML ONE (07:29)
[2021-08-09] MEDS: INSULIN -REGULAR HUMAN 50 UNIT/0.5 ML ML SQ SCH ×2 (07:30→11:23)
[2021-08-09] MEDS ORDERED: CEFEPIME 2 GM VIAL ONE (07:38)
[2021-08-09] MEDS: ENOXAPARIN 40 MG/0.4 ML SQ SCH (08:32)
[2021-08-09] MEDS: CEFEPIME 2 GM in NA CHLORIDE 0.9% 100 ML IV SCH (08:32)
[2021-08-09] MEDS: ASPIRIN EC 81 MG TAB PO SCH (08:34)
[2021-08-09] MEDS: INSULIN GLARGINE 100 UNIT/ML SQ SCH (08:34)
[2021-08-09] MEDS: AMLODIPINE 10 MG TAB PO SCH (08:34)
[2021-08-09] MEDS: DULOXETINE 30 MG CAP PO SCH (08:35)
[2021-08-09] MEDS: hydroCHLOROthiazide 25 MG TAB PO SCH (08:35)
[2021-08-09] MEDS: CLOPIDOGREL 75 MG TABLET PO SCH (08:36)
[2021-08-09] MEDS: BENAZEPRIL 10 MG TAB PO SCH (08:36)
[2021-08-09] MEDS: cloNIDine HCL 0.1 MG TAB PO SCH (08:36)
[2021-08-09] MEDS: ACETAMINOPHEN 500 MG TAB PO PRN (08:37)
[2021-08-09 08:38] VITALS: BP 169/74
[2021-08-09 08:42] VITALS: TEMP 98
[2021-08-09] MEDS ORDERED: POTASSIUM CL SA 10 MEQ TAB PO ONE (09:00)
[2021-08-09 09:44] VITALS: O2SAT 97
--- NOTE | 2021-08-09 11:16 | P.DS ---
Admission Date: 08/04/21 Discharge Date: 08/09/21 Disposition: DC HOME/HOME HEALTH CARE Reason for Admission: Nausea and vomiting - Problems (1) Sepsis Status: Acute (2) Diabetes mellitus type 2 in obese Status: Acute (3) History of CVA (cerebrovascular accident) Status: Acute (4) Acute renal failure Status: Acute (5) Pneumonia Status: Acute Brief History of Present Illness: 61-year-old gentleman with a history of diabetes mellitus on insulin therapy, history of CVA presented to the emergency department for nausea and vomiting and fever. Patient was in the ED a couple of days ago for generalized weakness, noted to have low-grade fever. Patient was hydrated with normal saline and subsequently discharged from the ED. He developed fever again today followed by vomiting. He denied any diarrhea. Patient noted to be febrile in the ED, mild leukocytosis and tachycardic meeting criteria for sepsis. He was given IV antibiotics and hydrated with normal saline. CT chest/abdomen/pelvis demonstrated 5 cm consolidation on the posterior gutter on the left, 8 mm noncalcified nodule, kidney cyst and adrenal nodule. Patient hospitalized for further evaluation and management of sepsis. Hospital Course: Patient admitted to the medical floor and treated with IV antibiotics for sepsis. Cultures yielded no growth. Patient procalcitonin was elevated. Chest CT demonstrated an area of consolidation suggestive of pneumonia. Patient with generally weak but her clinical condition improved gradually with treat. Patient was stable on room air throughout her hospital stay. His performance status improved with treatment. He is now able to ambulate using a walker without difficulty. He had intermittent fever but has been afebrile for a few days. Patient is clinically improved and deemed stable for discharge. He is prescribed Omnicef and doxycycline to continue treatment for the pneumonia. Vital Signs/Physical Exam: Temp Pulse Resp BP Pulse Ox 98.0 F 89 22 H 169/74 H 97 08/09/21 08:41 08/09/21 08:36 08/09/21 08:00 08/09/21 08:36 08/09/21 08:00 General: Alert, In no apparent distress, Oriented x3 HEENT: Normocephalic, Mucous membr. moist/pink, Sclerae nonicteric Neck: Supple, JVD not distended Respiratory: Clear to auscultation bilaterally, Normal air movement Cardiovascular: No edema, Regular rate/rhythm, Normal S1 S2 Gastrointestinal: Soft and benign, Non-distended, No tenderness Musculoskeletal: No swelling, No erythema Integumentary: Other (Erythematous maculopapular rash on the cheeks) Neurological: Normal speech, Normal strength at 5/5 x4 extr Laboratory Data at Discharge: WBC 10.40 K/uL (4.3-10.9) D 08/09/21 05:37 Hgb 8.9 g/dL (13.6-17.9) L 08/09/21 05:37 Hct 26.9 % (39.6-49.0) L 08/09/21 05:37 Plt Count 299 K/uL (152-406) D 08/09/21 05:37 PT 11.1 SECONDS (9.5-12.5) 08/04/21 09:49 INR 0.97 08/04/21 09:49 APTT 24.5 SECONDS (24.3-36.9) 08/04/21 09:49 Sodium 137 mmol/L (136-145) 08/09/21 05:37 Potassium 3.0 mmol/L (3.5-5.1) L 08/09/21 05:37 BUN 25 mg/dL (7-18) H 08/09/21 05:37 Creatinine 1.31 mg/dL (0.55-1.3) H 08/09/21 05:37 Glucose 146 mg/dL (74-106) H 08/09/21 05:37 Phosphorus 2.7 mg/dL (2.5-4.9) 08/05/21 05:40 Magnesium 2.5 08/05/21 05:40 Total Bilirubin 0.6 mg/dL (0.2-1.0) 08/05/21 05:40 AST 18 U/L (15-37) 08/05/21 05:40 ALT 15 U/L (12-78) 08/05/21 05:40 Alkaline Phosphatase 69 U/L (45-117) 08/05/21 05:40 Amylase 95 U/L (25-115) 08/04/21 09:49 Lipase 199 U/L (73-393) 08/04/21 09:49 Home Medications: Benazepril HCl 40 mg PO DAILY 07/18/15 Amlodipine [Norvasc*] 10 mg PO DAILY 08/04/21 Aspirin [Aspirin EC 81 MG] 81 mg PO DAILY 08/04/21 Atorvastatin Calcium 10 mg PO DAILY 08/04/21 Clopidogrel Bisulfate [Plavix] 75 mg PO DAILY 08/04/21 Duloxetine HCl 60 mg PO DAILY 08/04/21 Insulin Glargine,Hum.rec.anlog [Basaglar Kwikpen U-100] 10 unit SQ DAILY 08/04/21 Metformin HCl [Metformin HCl ER] 750 mg PO DAILY 08/04/21 cloNIDine HCL [Clonidine HCl] 0.1 mg PO DAILY 08/04/21 hydroCHLOROthiazide [Hydrochlorothiazide] 25 mg PO DAILY 08/04/21 Cefdinir [Omnicef] 300 mg PO BID 5 Days #10 capsule 08/09/21 Doxycycline Hyclate 100 mg PO BID 5 Days #10 capsule 08/09/21 New Medications: Doxycycline Hyclate 100 mg PO BID 5 Days #10 capsule Cefdinir [Omnicef] 300 mg PO BID 5 Days #10 capsule Diet: ADA Activity: Fall precautions Followup: Calos Morris MD [Primary Care Provider] - Time spent managing pt's care (in minutes): 38
[2021-08-10] MEDS ORDERED: VANCOMYCIN 1.5 GM in NA CHLORIDE 0.9% 500 ML IVPB SCH (11:00)
== END 2021-08-09 13:10 | disposition home health service (06) | DRG 871 ==
LOC: ER 08:52 → ERHOLD 14:51 → 2ND 16:16
PROVIDERS: ADMIT Internal Medicine; ATTEND Internal Medicine
PROC: 05HQ33Z Insertion of Infusion Device into Left External Jugular Vein, Percutaneous Approach (ICD-10-PCS; principal; 2021-08-04)
DX: A41.9 Sepsis, unspecified organism (principal); J18.9 Pneumonia, unspecified organism; N17.9 Acute kidney failure, unspecified; E11.9 Type 2 diabetes mellitus without complications; Z86.73 Personal history of transient ischemic attack (TIA), and cerebral infarction without residual deficits; Z79.4 Long term (current) use of insulin; I10 Essential (primary) hypertension; Z20.822 Contact with and (suspected) exposure to COVID-19
CPT/HCPCS: 0240U; 0241U; 36415; 71045; 71250; 74176; 80048; 80053; 80076; 80202; 81003; 81015; 82140; 82150; 82550; 82553; 82947; 83605; 83690; 83735; 83880; 84100; 84145; 84484; 85025; 85610; 85730; 87040; 93005; 96360; 96361; 96365; 96375; 97116; 97161; 97164; 97530; 99284; C9113; J0360; J0692; J1650; J3370; J7030; J7040; J7050

== ENCOUNTER 2024-04-22 11:05 | Inpatient (IN) | payer OTHER ==
[2024-04-22] MEDS ORDERED: ACETAMINOPHEN 500 MG TAB PO PRN (12:44)
[2024-04-22] MEDS ORDERED: MORPHINE 2 MG/ML SYR IV PRN (12:44)
[2024-04-22 13:12] VITALS: BMI 28.1
--- NOTE | 2024-04-22 13:59 | P.HP ---
Certification for Inpatient Patient admitted to: Inpatient With expected LOS: >2 Midnights Patient will require the following post-hospital care: None Practitioner: I am a practitioner with admitting privileges, knowledge of patient current condition, hospital course, and medical plan of care. Services: Services provided to patient in accordance with Admission requirements found in Title 42 Section 412.3 of the Code of Federal Regulations Patient History Date of Service: 04/22/24 Reason for admission: Right foot osteomyelitis History of Present Illness: Patient is a 64-year-old gentleman who follows up with Dr. Lacy for right foot infection. Patient has also had severe PAD. He had stent placed. He follows up with local vascular surgery. Patient states that his foot got more erythematous and drainage and Dr. Lacy wanted him admitted for surgical intervention. Patient will be made n.p.o. for surgical debridement versus amputation. Continue IV antibiotics. Outpatient follow-up with vascular surgery and podiatry. Will consult infectious disease for antibiotic recommendation. Patient with history of diabetic neuropathy as well as PAD which has led to his clinical symptoms.. Allergies No Known Allergies Allergy (Unverified 08/05/21 13:47) Home Medications: Amlodipine [Norvasc*] 10 mg PO DAILY 08/04/21 Aspirin [Aspirin EC 81 MG] 81 mg PO DAILY 08/04/21 Atorvastatin Calcium 20 mg PO BEDTIME 08/04/21 Clopidogrel Bisulfate [Plavix] 75 mg PO DAILY 08/04/21 Duloxetine HCl 60 mg PO DAILY 08/04/21 Insulin Glargine,Hum.rec.anlog [Basaglar Kwikpen U-100] 25 unit SQ DAILY 08/04/21 cloNIDine HCL [Clonidine HCl] 0.1 mg PO BID 08/04/21 Benazepril HCl 5 mg PO BID 04/22/24 Carvedilol [Coreg] 6.25 mg PO BID 04/22/24 Cholecalciferol (Vitamin D3) [D3-5000] 1,000 units PO DAILY 04/22/24 Ferrous Sulfate [Ferrous Sulfate*] 325 mg PO DAILY 04/22/24 Na Bicarb Tab [Sodium Bicarb 325 MG Tab*] 325 mg PO BID 04/22/24 - Past Medical/Surgical History Has patient received pneumonia vaccine in the past: Yes Diabetic: No -: htn -: tia 06/20/2015 -: brunos palsey 06/20/15 -: Insulin-dependent diabetes -: appendectomy 07/18/15 - Family History Father Family History: Reviewed- Non-Contributory - Social History Smoking Status: Never smoker Alcohol use: No CD- Drugs: No Caffeine use: Yes Place of Residence: Home Review of Systems 10-point ROS is otherwise unremarkable Physical Examination - Vital Signs Temperature: 98.2 F Blood Pressure: 153/68 Pulse: 65 Respirations: 16 Pulse Ox (%): 100 - Physical Exam General: Alert, In no apparent distress, Oriented x3 HEENT: Atraumatic, PERRLA, Mucous membr. moist/pink, EOMI, Sclerae nonicteric Neck: Supple, 2+ carotid pulse no bruit, No LAD, Without JVD or thyroid abnormality Respiratory: Clear to auscultation bilaterally, Normal air movement Cardiovascular: Regular rate/rhythm, Normal S1 S2 Gastrointestinal: Normal bowel sounds, Soft and benign, Non-distended, No tenderness Musculoskeletal: Erythema, Tenderness Integumentary: Tenderness/swelling, Erythema Neurological: Normal gait, Normal speech, Normal strength at 5/5 x4 extr, Normal tone, Normal affect, Abnormal sensation Lymphatics: No axilla or inguinal lymphadenopathy Assessment & Plan - Problems (Diagnosis) (1) Cellulitis of right foot Current Visit: Yes Status: Acute (2) Osteomyelitis of right foot Current Visit: Yes Status: Acute (3) Type 2 diabetes mellitus with diabetic peripheral angiopathy without gangrene Current Visit: Yes Status: Acute (4) History of CVA (cerebrovascular accident) Current Visit: No Status: Acute - Plan PLAN: 1. Continue with IV antibiotic 2. Continue with local wound care 3. Wound care consultation/podiatry consultation 4. Gentle IV hydration 5. Monitor CBC 6. Strict blood sugar monitoring 7. Pain control 8. GI and DVT prophylaxis Discharge Plan: Home Plan to discharge in: Greater than 2 days - Advance Directives Does patient have a Living Will: No Does patient have a Durable POA for Healthcare: No - Code Status/Comfort Care Code Status Assessed: Yes Code Status: Full Code Critical Care: No Time Spent Managing PTS Care (In Minutes): 45
[2024-04-22] MEDS: VANCOMYCIN 2 GM in NA CHLORIDE 0.9% 500 ML IVPB ONE (14:21)
[2024-04-22] MEDS: NA CHLORIDE 0.9% 1,000 ML IV SCH (14:23)
[2024-04-22 14:37] LABS: Absolute Basophils 0.1 K/uL (0-0.5); Absolute Eosinophils 0.1 K/uL (0-0.5); Absolute Monocytes 0.8 K/uL (0.1-1.3); Absolute Neutrophil 8.2 K/uL (1.8-8.0); Basophils % 0.7 % (0-1.3); Eosinophils % 1.3 % (0-4.4); Hematocrit 25.1 % (39.6-49.0); Hemoglobin 8.1 g/dL (13.6-17.9); Lymphocytes % 9.8 % (15.3-44.8); MCHC 32.3 g/dL (32.0-36.0); MCV 92.8 fL (80-100); MPV 9.1 fL (7.6-11.3); Monocytes % 7.8 % (3.3-12.3); Neutrophils % 80.4 % (41.7-73.7); Platelets 286 thou/uL (152-406); RBC Red Blood Cell Count 2.71 M/uL (4.33-5.43); Red Cell Distribution Width 14.5 % (12.1-15.2)
[2024-04-22 14:41] LABS: PT Prothrombin Time 11.8 SECONDS (9.4-12.5); PTT, Activated Partial Thromb 38.3 SECONDS (24.3-36.9); Protime INR 1.06
[2024-04-22 14:50] LABS: Albumin 2.4 g/dL (3.4-5.0); Albumin/Globulin Ratio 0.5 (1.1-1.8); Bilirubin Total 0.4 mg/dL (0.2-1.0); Globulin 4.6 g/dL (2.3-3.5)
--- NOTE | 2024-04-22 16:13 | RAD REPORT ---
Procedure: Chest Single View HISTORY: Preop COMPARISON: 2021 FINDINGS: The lungs appear clear of acute infiltrate. No significant pleural effusion noted. The heart is normal size. IMPRESSION: No acute abnormality is displayed.
--- NOTE | 2024-04-22 17:49 | P.CNS ---
Date of Consult: 04/22/24 Reason for Consult: osteomyelitis right foot History of Present Illness: Patient has been treated in wound care for chronic wound right lateral forefoot that has worsened. Presented to wound care this morning with purulence expressed from wound. MRI positive for osteomyelitis Allergies No Known Allergies Allergy (Unverified 08/05/21 13:47) Home Medications: Amlodipine [Norvasc*] 10 mg PO DAILY 08/04/21 Aspirin [Aspirin EC 81 MG] 81 mg PO DAILY 08/04/21 Atorvastatin Calcium 20 mg PO BEDTIME 08/04/21 Clopidogrel Bisulfate [Plavix] 75 mg PO DAILY 08/04/21 Duloxetine HCl 60 mg PO DAILY 08/04/21 Insulin Glargine,Hum.rec.anlog [Basaglar Kwikpen U-100] 25 unit SQ DAILY 08/04/21 cloNIDine HCL [Clonidine HCl] 0.1 mg PO BID 08/04/21 Benazepril HCl 5 mg PO BID 04/22/24 Carvedilol [Coreg] 6.25 mg PO BID 04/22/24 Cholecalciferol (Vitamin D3) [D3-5000] 1,000 units PO DAILY 04/22/24 Ferrous Sulfate [Ferrous Sulfate*] 325 mg PO DAILY 04/22/24 Na Bicarb Tab [Sodium Bicarb 325 MG Tab*] 325 mg PO BID 04/22/24 - Past Medical/Surgical History Diabetic: No -: htn -: tia 06/20/2015 -: bells palsey 06/20/15 -: Insulin-dependent diabetes -: appendectomy 07/18/15 - Social History Smoking Status: Current every day smoker Alcohol use: No CD- Drugs: No Caffeine use: Yes Place of Residence: Home Review of Systems 10-point ROS is otherwise unremarkable Physical Examination Temp Pulse Resp BP Pulse Ox 98.8 F 70 18 156/70 H 99 04/22/24 16:00 04/22/24 16:00 04/22/24 16:00 04/22/24 16:00 04/22/24 16:00 General: Alert, In no apparent distress, Oriented x3 Cardiovascular: No edema, Abnormal pulses (diminished pedal pulses bilateral lower extremity) Capillary refill: >2 Seconds Musculoskeletal: No clubbing, No swelling, No contractures, No erythema, No tenderness, No warmth, Other (previous amputation right third and fourth toes/rays) Integumentary: No rashes, Skin lesion, Erythema, Warmth, Diabetic ulcer (ulce ration right plantar lateral fifth metatarsal head with purulence expressed and bone exposure) Neurological: Abnormal sensation Laboratory Data (last 24 hrs) 04/22/24 04/22/24 04/22/24 14:04 14:04 14:04 WBC 10.20 Hgb 8.1 L Hct 25.1 L Plt Count 286 PT 11.8 INR 1.06 APTT 38.3 H Sodium 137 Potassium 4.0 BUN 47 H Creatinine 2.20 H Glucose 210 H Total Bilirubin 0.4 AST 12 L ALT 15 L Alkaline Phosphatase 96 Imagings Data: MRI positive for osteomyelitis right fifth metarsal and digit. - Problems (1) Osteomyelitis of right foot Current Visit: Yes Status: Acute (2) Type 2 diabetes mellitus with foot ulcer Current Visit: Yes Status: Acute (3) Cellulitis of right foot Current Visit: Yes Status: Acute (4) Type 2 diabetes mellitus with diabetic peripheral angiopathy without gangrene Current Visit: Yes Status: Acute Conclusions/Impression: Discussed options with patient and patient is wanting to have surgery to include a partial fifth ray resection. Will schedule the patient for tomorrow. NPO after midnight Physician Review: Patient Assessed, Agree with Above Assessment and Plan
--- NOTE | 2024-04-22 18:46 | CON ---
History Of Present Illness: This is a 64-year-old male I was consulted for right foot osteomyelitis and right foot diabetic foot ulcer with peripheral vascular disease, diabetes mellitus, diabetic neur opathy, and renal insufficiency, being seen by nephrology team. The patient is coming in with diabet ic foot ulcer and diabetic neuropathy and osteomyelitis. Does not recall any trauma to the foot. 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 Most of the history was obtained through the . Also has a past medical history of tobacco use of 10 years, 1 pack per day. Past Medical History: As per HPI. Social History: Nonsmoker. Nondrinker. Family History: Noncontributory. Medications: Vancomycin. See MAR for other medications. Allergies: NO KNOWN DRUG ALLERGIES. Review of Systems: A 10-point review was performed. Physical Examination: General: This is a 64-year-old male, lying in bed, not in any acute cardiopulmonary distress. Vital Signs: Temperature 98, pulse 65, respirations 16, blood pressure 153/68. HEENT: Unremarkable. Neck: Supple. Lungs: Basal crackles. Heart: S1, S2. Regular. Abdomen: Soft, nontender. Bowel sounds present. Extremities: Right extremity with 2+ ankle edema. Right foot lateral aspect of the 5th metatarsal h ead large ulceration noted. Minimal foul order also noted with some necrotic tissue about 20% and bl ack and purplish discolored tissue was noted underneath at the base with secretions on the dressing a lso noted. Assessment And Plan: A 64-year-old male with significant past medical history of diabetes mellitus, tobacco use, diabetic neuropathy, and loss of 3rd and 4th toe on the right foot, coming in with large diabetic foot ulcer on the fifth metatarsal head region, most likely osteomyelitis. We do not have any reports available at this time. We will recommend to start patient on vancomycin and add cefepim e depending on kidney function. Monitor labs as patient has told me that he has renal insufficiency and being followed by nephrology team. Recommend to get CBC, CMP, lactic acid, blood cultures, wound cultures. Keep leg elevated when possible. Recommend to clean the wound with Vashe and apply silve r alginate and Kerlix daily. We will follow the patient closely. Thank you Dr. Lacy and Dr. Grace for consult. NF/MODL Voice ID: [id number] Report ID: [id number]
[2024-04-23 04:49] LABS: Absolute Basophils 0.1 K/uL (0-0.5); Absolute Eosinophils 0.2 K/uL (0-0.5); Absolute Lymphocytes (CBC) 1.4 K/uL (0.7-4.9); Absolute Monocytes 0.5 K/uL (0.1-1.3); Absolute Neutrophil 5.6 K/uL (1.8-8.0); Basophils % 1.1 % (0-1.3); Eosinophils % 2.3 % (0-4.4); Hematocrit 25.2 % (39.6-49.0); Hemoglobin 8.4 g/dL (13.6-17.9); Lymphocytes % 17.7 % (15.3-44.8); MCH 30.6 pg (27.0-35.0); MCHC 33.3 g/dL (32.0-36.0); MCV 91.9 fL (80-100); MPV 8.5 fL (7.6-11.3); Monocytes % 6.1 % (3.3-12.3); Neutrophils % 72.8 % (41.7-73.7); Platelets 310 thou/uL (152-406); RBC Red Blood Cell Count 2.74 M/uL (4.33-5.43)
[2024-04-23 05:37] LABS: AST/SGOT 13 U/L (15-37); Albumin 2.3 g/dL (3.4-5.0); Albumin/Globulin Ratio 0.5 (1.1-1.8); Alkaline Phosphatase 89 U/L (45-117); Anion Gap 7.8 mEq/L (5.0-15.0); BUN Blood Urea Nitrogen 40 mg/dL (7-18); Bicarbonate 23 mEq/L (21-32); Bilirubin Total 0.4 mg/dL (0.2-1.0); Globulin 4.5 g/dL (2.3-3.5); Glomerular Filtration Rate 35 ml/min (=/>90); Glucose Level 99 mg/dL (74-106); Potassium 3.8 mEq/L (3.5-5.1); Protein, Total 6.8 g/dL (6.4-8.2); Sodium Level 142 mEq/L (136-145)
[2024-04-23 05:42] LABS: ALT/SGPT < 14 U/L (16-61)
--- NOTE | 2024-04-23 10:18 | P.PN ---
Subjective Date of Service: 04/23/24 Chief Complaint: Right foot infection Subjective: No new changes (N.p.o. postmidnight), NPO (Postmidnight) Review of Systems 10-point ROS is otherwise unremarkable General: Unremarkable Eyes: Unremarkable ENT: Unremarkable Respiratory: Unremarkable Cardiovascular: Unremarkable Gastrointestinal: Unremarkable Genitourinary: Unremarkable Musculoskeletal: As per HPI Integumentary: As per HPI Neurological: Unremarkable Lymphatics: Unremarkable Physical Examination - Vital Signs Temperature: 98.7 F Blood Pressure: 155/68 Pulse: 77 Respirations: 16 Pulse Ox (%): 100 - Physical Exam General: Alert, In no apparent distress, Oriented x3 HEENT: Atraumatic, Normocephalic Neck: Supple Respiratory: Normal air movement Cardiovascular: Normal pulses, Regular rate/rhythm Capillary refill: <2 Seconds Gastrointestinal: Normal bowel sounds Musculoskeletal: Other (Status post right third and fourth digit removal, fifth digit and lateral tarsal area with ulceration and drainage. Patient states this has been going on for about 3 months) Integumentary: Other (As above) Neurological: Normal speech, Normal tone, Normal affect Lymphatics: No axilla or inguinal lymphadenopathy External genitalia: Deferred Rectal: Deferred - Studies Laboratory Data (last 24 hrs) 04/23/24 04/23/24 04/22/24 04:30 04:30 14:04 WBC 7.70 Hgb 8.4 L Hct 25.2 L Plt Count 310 PT INR APTT Sodium 142 D 137 Potassium 3.8 4.0 BUN 40 H 47 H Creatinine 2.05 H 2.20 H Glucose 99 210 H Total Bilirubin 0.4 0.4 AST 13 L 12 L ALT < 14 L 15 L Alkaline Phosphatase 89 96 04/22/24 04/22/24 14:04 14:04 WBC 10.20 Hgb 8.1 L Hct 25.1 L Plt Count 286 PT 11.8 INR 1.06 APTT 38.3 H Sodium Potassium BUN Creatinine Glucose Total Bilirubin AST ALT Alkaline Phosphatase Assessment And Plan - Plan - Problems (1) Osteomyelitis of right foot Current Visit: Yes Status: Acute (2) Type 2 diabetes mellitus with foot ulcer Current Visit: Yes Status: Acute (3) Cellulitis of right foot Current Visit: Yes Status: Acute (4) Type 2 diabetes mellitus with diabetic peripheral angiopathy without gangrene Current Visit: Yes Status: Acute Conclusions/Impression: (5) CKD with anemia of chronic disease Plan: 1. Continue IV antibiotics 2. Continue with local wound care 3. Wound care consultation/surgical consultation - Dr. Lacy 4. Gentle IV hydration 5. Monitor and trend labs 6. Strict blood sugar monitoring 7. Pain control 8. GI and DVT prophylaxis 04/23/24 Pt was NPO overnight OR planned for today creatinine 2.05 from 2.2 yesterday Continue above - Code Status/Comfort Care Code Status Assessed: Yes (Full) Physician Review: Patient Assessed, Agree with Above Assessment and Plan
[2024-04-23] MEDS: NA CHLORIDE 0.9% 1,000 ML ONE (11:19)
[2024-04-23] MEDS ORDERED: LIDOCAINE 2% MPF 5 ML VIAL ONE (11:39)
[2024-04-23] MEDS ORDERED: FENTANYL CITR 100 MCG/2 ML ONE (11:39)
[2024-04-23] MEDS ORDERED: ONDANSETRON 4 MG/2 ML VIAL ONE (11:39)
[2024-04-23] MEDS ORDERED: propofoL 200 MG/20 ML VIAL IV ONE ×2 (11:39→11:41)
[2024-04-23] MEDS ORDERED: dexAMETHasone 4 MG/ML VIAL ONE (12:15)
--- NOTE | 2024-04-23 13:04 | P.OP ---
Preoperative diagnosis: right fifth metatarsal osteomyelitis Postoperative diagnosis: same Primary procedure: right partial fifth ray resection Anesthesia: general Estimated blood loss: 15cc Specimen: bone for pathology Findings: porous bone right fifth metatarsal Operative Technique: as dictated Complications: None Transferred to: Recovery Room Condition: Good
[2024-04-23] MEDS: carvediloL 6.25 MG TAB PO SCH (16:29)
--- NOTE | 2024-04-23 17:52 | RAD REPORT ---
EXAM: Fluoroscopy use, Fluoroscopy <1 Hour HISTORY: [facility] MAIN RT FOOT COMPARISON: None FINDINGS: A total of 3 images were sent to PACS, during a fluoroscopically guided debridement. No rad iologist was involved in protocoling or performance of the study, and no radiologist was present for the duration of the procedure. No interpretation of the saved images will be provided. Total fluoroscopy time: Less than 0.1 minute. IMPRESSION: Documentation of fluoroscopy use as above.
[2024-04-23] MEDS: BENAZEPRIL 10 MG TAB PO SCH (21:02)
[2024-04-23] MEDS: ATORVASTATIN 20 MG TAB PO SCH (21:02)
[2024-04-23] MEDS: SODIUM BICARB 325 MG TAB PO SCH (21:03)
[2024-04-23] MEDS: cloNIDine HCL 0.1 MG TAB PO SCH (21:03)
--- NOTE | 2024-04-23 23:13 | PN ---
Subjective: The patient is lying in bed. Denies any headache, nausea, vomiting, chest pain, abdomin al pain, constipation, or diarrhea. He is going for right foot fifth toe resection and for the treat ment of his osteomyelitis. The patient denies any headache, nausea, vomiting. Physical Examination: Vital Signs: Reviewed. Lungs: Clear to auscultation. Heart: S1, S2. Regular. Abdomen: Soft, nontender. Bowel sounds present. Extremities: Right foot wound and erythematous changes and swelling noted. Laboratory Data: Shows WBC 7.7, hemoglobin 8.4, platelets are 310. Chemistry shows patient has BUN of 40, creatinine 2.05. Medications: Include vancomycin. See MARs for other medications. Assessment And Plan: Status post right foot osteomyelitis with diabetic foot ulcer, diabetic neuropa thy, anemia of chronic disease, renal insufficiency. Continue supportive care. We will follow the p atient as needed. NF/MODL Voice ID: [id number] Report ID: [id number]
[2024-04-24] MEDS: INSULIN REGULAR (HUMAN) 100 UNIT/ML ONE (01:38)
--- NOTE | 2024-04-24 01:46 | OP ---
Surgeon: Jaswant Lacy Jr, DPM Preoperative Diagnosis: Right fifth metatarsal and fifth digit osteomyelitis. Postoperative Diagnosis: Right fifth metatarsal and fifth digit osteomyelitis. Procedure: Right partial fifth ray resection with closure via advancement flap. Pathology: Bone sent for gross and micro. Anesthesia: General. Hemostasis: None. Estimated Blood Loss: 15 cc. Materials: 2-0 Prolene. Injectables: None. Complications: None. Procedure In Detail: The patient was brought into [facility] Operating Room and placed on the OR table in supine position. The patient was placed under general anesthesia by anesthesiologist. The patient was prepped and draped in the usual aseptic manner. Attention was directed to the right foot lateral aspect, at which time, an ulcer with purulent drainage noted and bone exposure of the fifth metatarsal was identified. At this time, a linear incision was made along the shaft of the fifth metatarsal and distally along the lateral aspect of the fifth digit. The bone was freed from the soft tissue and was removed from the operative site. Next, utilizing sharp and blunt dissection, the shaft of the fifth metatarsal was freed from surrounding tissues and the bone was prepped approximately midshaft, at which time, utilizing oscillating bone saw, the shaft of the fifth metatarsal was transected. This was then removed in total from the wound. Following this, a more proximal piece demonstrate clear margins, this was taken as well. Next, distally at the wound site, any nonviable tissue was excised utilizing a 15 blade. The wound was then irrigated with copious amounts of normal sterile saline utilizing a pulse lavage. Following this, the wound margins were remodeled and the dorsal skin was advanced to cover the defect of the ulceration approximately 1 to 2 cm. Following this, the closure was obtained utilizing 2-0 Prolene and a sterile dressing consisting of Adaptic, 4x4s, Kerlix, and an Sree wrap applied to the right lower extremity. The patient tolerated the procedure and anesthesia well and was transferred from OR to recovery with vital signs stable and neurovascular status intact. RS/GIRMA Voice ID: [id number] Report ID: [id number] OJ
[2024-04-24] MEDS: VANCOMYCIN 1.5 GM in NA CHLORIDE 0.9% 500 ML IVPB SCH (02:40)
[2024-04-24 06:49] LABS: Absolute Lymphocytes (CBC) 0.7 K/uL (0.7-4.9); Absolute Monocytes 0.6 K/uL (0.1-1.3); Absolute Neutrophil 9.8 K/uL (1.8-8.0); Basophils % 0.1 % (0-1.3); Hematocrit 23.6 % (39.6-49.0); Hemoglobin 7.5 g/dL (13.6-17.9); Lymphocytes % 6.1 % (15.3-44.8); MCH 29.8 pg (27.0-35.0); MCV 93.2 fL (80-100); Monocytes % 5.7 % (3.3-12.3); Neutrophils % 88.1 % (41.7-73.7); Platelets 297 thou/uL (152-406); RBC Red Blood Cell Count 2.53 M/uL (4.33-5.43); Red Cell Distribution Width 14.2 % (12.1-15.2)
[2024-04-24] MEDS ORDERED: HYDROCODONE/APAP 7.5/325 MG TAB PO PRN (06:49)
--- NOTE | 2024-04-24 06:50 | P.PN ---
Date of Service: 04/24/24 Subjective Chief Complaint: Right foot infection Dr. Lacy right partial fifth metatarsal resection, pain control as needed p.o. [place] added Leukocytosis, afebrile, Review of Systems 10-point ROS negative is otherwise unremarkable Physical Examination - Vital Signs Reviewed - Physical Exam General: Alert, In no apparent distress, Oriented x3 HEENT: Atraumatic, Normocephalic Neck: Supple Respiratory: Normal air movement Cardiovascular: Normal pulses, Regular rate/rhythm Capillary refill: <2 Seconds Gastrointestinal: Normal bowel sounds Musculoskeletal: Other (Status post right third and fourth digit, right partial fifth metatarsal resection, dry surgical dressing Integumentary: Other (As above) Neurological: Normal speech, Normal tone, Normal affect Assessment And Plan - Plan - Problems (1) Osteomyelitis of right foot Current Visit: Yes Status: Acute right fifth metatarsal osteomyelitis 04/23 Dr. Lacy right partial fifth metatarsal resection PT eval, wound care, infectious disease follow, currently on vancomycin Wound cultures Pseudomonas of the right foot, streptococcal agalactiae grp B (2) Type 2 diabetes mellitus with foot ulcer Current Visit: Yes Status: Acute Accu-Cheks, sliding scale insulin Lantus 25 daily Moved to high sliding scale insulin (3) Cellulitis of right foot Current Visit: Yes Status: Acute Infectious disease following, IV antibiotic (4) Type 2 diabetes mellitus with diabetic peripheral angiopathy without gangrene Current Visit: Yes Status: Acute Conclusions/Impression: (5) CKD with anemia of chronic disease Trend kidney function Plan: 1. Continue IV antibiotics 2. Continue with local wound care 3. Wound care consultation/surgical consultation - Dr. Lacy 4. Gentle IV hydration 5. Monitor and trend labs 6. Strict blood sugar monitoring 7. Pain control 8. GI and DVT prophylaxis - Code Status/Comfort Care Code Status Assessed: Yes (Full) Physician Review: Patient Assessed, Agree with Above Assessment and Plan Time with patient 35
[2024-04-24 07:09] LABS: Albumin 2.2 g/dL (3.4-5.0); Albumin/Globulin Ratio 0.5 (1.1-1.8); Anion Gap 8.2 mEq/L (5.0-15.0); Bilirubin Total 0.3 mg/dL (0.2-1.0); Globulin 4.2 g/dL (2.3-3.5); Magnesium 2.5 mg/dL (1.6-2.4); Potassium 4.2 mEq/L (3.5-5.1); Protein, Total 6.4 g/dL (6.4-8.2)
[2024-04-24] MEDS ORDERED: INSULIN REGULAR (HUMAN) 100 UNIT/ML SQ SCH (07:30)
--- NOTE | 2024-04-24 08:33 | P.PN ---
Subjective Date of Service: 04/24/24 Chief Complaint: Right foot infection Subjective: Doing well " My foot has never felt better" Review of Systems 10-point ROS is otherwise unremarkable Physical Examination - Vital Signs Temperature: 98.5 F Blood Pressure: 155/69 Pulse: 69 Respirations: 16 Pulse Ox (%): 98 - Physical Exam General: Alert, In no apparent distress, Oriented x3 Cardiovascular: No edema, Abnormal pulses Capillary refill: <2 Seconds Musculoskeletal: No clubbing, No swelling, No contractures, No erythema, No tenderness, No warmth Integumentary: No rashes, No breakdown, No significant lesion, No tenderness/swelling, No erythema, No warmth, No cyanosis, Other (Right foot incision is well approximated with no purulent discharge, no periwound erythema, minimal edema) Neurological: Abnormal sensation - Studies Laboratory Data (last 24 hrs) 04/24/24 04/24/24 06:25 06:25 WBC 11.20 H Hgb 7.5 L D Hct 23.6 L Plt Count 297 Sodium 142 Potassium 4.2 BUN 35 H Creatinine 1.98 H Glucose 265 H Magnesium 2.5 H Total Bilirubin 0.3 AST 15 ALT 18 Alkaline Phosphatase 92 Assessment And Plan - Current Problems (Diagnosis) (1) Osteomyelitis of right foot Current Visit: Yes Status: Acute (2) Type 2 diabetes mellitus with foot ulcer Current Visit: Yes Status: Acute (3) Cellulitis of right foot Current Visit: Yes Status: Acute (4) Type 2 diabetes mellitus with diabetic peripheral angiopathy without gangrene Current Visit: Yes Status: Acute - Plan Dressing change performed at bedside. Note slight increase in WBC (likely due to postop bacteremia). Recommend continued iv antibiotics with reevaluation tomorrow morning and possible discharge Physician Review: Patient Assessed, Agree with Above Assessment and Plan
[2024-04-24] MEDS: ASPIRIN EC 81 MG TAB PO SCH (08:58)
[2024-04-24] MEDS: DULOXETINE 30 MG CAP PO SCH (08:58)
[2024-04-24] MEDS: INSULIN GLARGINE 100 UNIT/ML SQ SCH (08:58)
[2024-04-24] MEDS: FERROUS SULFATE 325 MG TAB PO SCH (08:59)
[2024-04-24] MEDS: AMLODIPINE 10 MG TAB PO SCH (08:59)
[2024-04-24] MEDS: CLOPIDOGREL 75 MG TABLET PO SCH (08:59)
[2024-04-24] MEDS: INSULIN REGULAR (HUMAN) 100 UNIT/ML SQ SCH (08:59)
[2024-04-24 09:11] LABS: Differential Total Cells Count 100; Segmented Neutrophils 90 % (40-80)
[2024-04-24 09:12] LABS: Blood Morphology Comment NOT SEEN (NOT SEEN); Lymphocytes 4 % (15-42); Monocytes 6 % (0-10); Platelet Estimate ADEQ
--- NOTE | 2024-04-25 07:31 | P.DS ---
Admission Date: 04/22/24 Discharge Date: 04/25/24 Disposition: [place] HOME/HOME HEALTH CARE Discharge Condition: GOOD Reason for Admission: Right foot infection Brief History of Present Illness: Patient is a 64-year-old gentleman who follows up with Dr. Lacy for right foot infection. Patient has also had severe PAD. He had stent placed. He follows up with local vascular surgery. Patient states that his foot got more erythematous and drainage and Dr. Lacy wanted him admitted for surgical intervention. Patient will be made n.p.o. for surgical debridement versus amputation. Continue IV antibiotics. Outpatient follow-up with vascular surgery and podiatry. Will consult infectious disease for antibiotic recommendation. Patient with history of diabetic neuropathy as well as PAD which has led to his clinical symptoms.. - Physical Exam General: Alert, In no apparent distress, Oriented x3 HEENT: Atraumatic, PERRLA, Mucous membr. moist/pink, EOMI, Sclerae nonicteric Neck: Supple, 2+ carotid pulse no bruit, No LAD, Without JVD or thyroid abnormality Respiratory: Clear to auscultation bilaterally, Normal air movement Cardiovascular: Regular rate/rhythm, Normal S1 S2 Gastrointestinal: Normal bowel sounds, Soft and benign, Non-distended, No tenderness Musculoskeletal: Erythema, Tenderness Integumentary: Tenderness/swelling, Erythema Neurological: Normal gait, Normal speech, Normal strength at 5/5 x4 extr, Normal tone, Normal affect, Abnormal sensation Lymphatics: No axilla or inguinal lymphadenopathy Hospital Course: 64-year-old gentleman who follows up with Dr. Lacy for right foot infection. Patient has also had severe PAD. He had stent placed. He follows up with local vascular surgery. Patient states that his foot got more erythematous and drainage and Dr. Lacy wanted him admitted for surgical intervention. Patient will be made n.p.o. for surgical debridement versus amputation. Continue IV antibiotics. Outpatient follow-up with vascular surgery and podiatry. Will consult infectious disease for antibiotic recommendation. Patient with history of diabetic neuropathy as well as PAD which has led to his clinical symptoms.. He was seen by podiatry, he was noted to have osteomyelitis of the right foot, status post 04/23 Dr. Lacy right partial fifth metatarsal resection, he was evaluated by physical therapy, infectious disease, treated with IV antibiotics. Tolerating diet, stable to discharge home with [facility] discharge home on Bactrim, Hydrcodone Wound culture Pseudomonas, strep agalactiae group B- discharge home on Bactrim, Hydrcodone [facility] P:[phone] F:[phone] Assessment Osteomyelitis of the right foot status post 04/23 Dr. Lacy right partial fifth metatarsal resection, discharged home with antibiotics he was evaluated by physical therapy, ordered DME prior to discharge Cellulitis of right foot-treated with IV antibiotic, improved, status post resection Type 2 diabetes mellitus with diabetic peripheral angiopathy without gangrene CKD with anemia of chronic ysdvtmf-qtargh-an with nephrology after discharge Continue home medicines as previously prescribed GOAL: Clear understanding of disease process INSTRUCTIONS: Physician Discharge Instructions: -Follow with Dr Lacy, call office for apt -Follow-up with PCP in 1 to 2 weeks -Please call Dr. Grace at [phone] if any questions regarding hospital stay -Please call nursing station at [phone] if any nursing or medication questions -Return to the emergency room if symptoms worsen Diet: ADA, low sodium Activity: Fall precautions Vital Signs/Physical Exam: Temp Pulse Resp BP Pulse Ox 97.3 F 67 18 144/65 H 99 04/25/24 04:00 04/25/24 04:00 04/25/24 04:00 04/25/24 04:00 04/25/24 04:00 Laboratory Data at Discharge: WBC 11.20 thou/uL (4.3-10.9) H 04/24/24 06:25 Hgb 7.5 g/dL (13.6-17.9) L D 04/24/24 06:25 Hct 23.6 % (39.6-49.0) L 04/24/24 06:25 Plt Count 297 thou/uL (152-406) 04/24/24 06:25 PT 11.8 SECONDS (9.4-12.5) 04/22/24 14:04 INR 1.06 04/22/24 14:04 APTT 38.3 SECONDS (24.3-36.9) H 04/22/24 14:04 Sodium 142 mEq/L (136-145) 04/24/24 06:25 Potassium 4.2 mEq/L (3.5-5.1) 04/24/24 06:25 BUN 35 mg/dL (7-18) H 04/24/24 06:25 Creatinine 1.98 mg/dL (0.70-1.30) H 04/24/24 06:25 Glucose 265 mg/dL (74-106) H 04/24/24 06:25 Magnesium 2.5 mg/dL (1.6-2.4) H 04/24/24 06:25 Total Bilirubin 0.3 mg/dL (0.2-1.0) 04/24/24 06:25 AST 15 U/L (15-37) 04/24/24 06:25 ALT 18 U/L (16-61) 04/24/24 06:25 Alkaline Phosphatase 92 U/L (45-117) 04/24/24 06:25 Home Medications: Amlodipine [Norvasc*] 10 mg PO DAILY 08/04/21 Aspirin [Aspirin EC 81 MG] 81 mg PO DAILY 08/04/21 Atorvastatin Calcium 20 mg PO BEDTIME 08/04/21 Clopidogrel Bisulfate [Plavix] 75 mg PO DAILY 08/04/21 Duloxetine HCl 60 mg PO DAILY 08/04/21 Insulin Glargine,Hum.rec.anlog [Basaglar Kwikpen U-100] 25 unit SQ DAILY 08/04/21 cloNIDine HCL [Clonidine HCl] 0.1 mg PO BID 08/04/21 Benazepril HCl 5 mg PO BID 04/22/24 Carvedilol [Coreg] 6.25 mg PO BID 04/22/24 Cholecalciferol (Vitamin D3) [D3-5000] 1,000 units PO DAILY 04/22/24 Ferrous Sulfate [Ferrous Sulfate*] 325 mg PO DAILY 04/22/24 Na Bicarb Tab [Sodium Bicarb 325 MG Tab*] 325 mg PO BID 04/22/24 Hydrocodone 7.5/APAP 325 [[place] 7.5/325 mg*] 1 tab PO Q6H PRN #20 tab 04/25/24 Smz./Tmp. [Bactrim Ds 800 MG/160 MG] 1 tab PO BID #10 tab 04/25/24 New Medications: Smz./Tmp. [Bactrim Ds 800 MG/160 MG] 1 tab PO BID #10 tab Hydrocodone 7.5/APAP 325 [[place] 7.5/325 mg*] 1 tab PO Q6H PRN #20 tab PRN Reason: Pain Scale 5-7 (Moderate) Physician Discharge Instructions: -DC IV and DC home -Follow-up with PCP in 1 to 2 weeks -Follow-up with Conveyor Attendant in 1 to 2 weeks -Please call Dr. Grace at [phone] if any questions regarding hospital stay -Please call nursing station at [phone] if any nursing or medication questions -Return to the emergency room if symptoms worsen Followup: Jaswant Lacy JR, DPM [ASSOCIATE-ACTIVE - CAN ADMIT] - 1-2 Weeks Humaira Pal [Primary Care Provider] - 1-2 Weeks Time spent managing pt's care (in minutes): 55
--- NOTE | 2024-04-25 08:32 | P.PN ---
Subjective Date of Service: 04/25/24 Chief Complaint: Right foot infection Subjective: Improving, Doing well " My foot has never felt better" Review of Systems 10-point ROS is otherwise unremarkable Physical Examination - Vital Signs Temperature: 97.3 F Blood Pressure: 144/65 Pulse: 67 Respirations: 18 Pulse Ox (%): 99 - Physical Exam Cardiovascular: No edema, Abnormal pulses Capillary refill: <2 Seconds Musculoskeletal: No clubbing, No swelling, No contractures, No erythema, No tenderness, No warmth Integumentary: No rashes, No breakdown, No significant lesion, No tenderness/swelling, No erythema, No warmth, No cyanosis, Other (right foot incision site is well approximated, no dehiscence, no signs of infection) Neurological: Abnormal sensation - Studies Laboratory Data (last 24 hrs) 04/24/24 06:25 WBC 11.20 H Hgb 7.5 L D Hct 23.6 L Plt Count 297 Assessment And Plan - Current Problems (Diagnosis) (1) Osteomyelitis of right foot Current Visit: Yes Status: Acute (2) Type 2 diabetes mellitus with foot ulcer Current Visit: Yes Status: Acute (3) Cellulitis of right foot Current Visit: Yes Status: Acute (4) Type 2 diabetes mellitus with diabetic peripheral angiopathy without gangrene Current Visit: Yes Status: Acute - Plan Dressing change performed at bedside. PAtient is stable and can be discharged to home on oral antibiotics with follow up on 04/29/24 in wound care Discharge Plan: Home Plan to discharge in: 24 Hours Physician Review: Patient Assessed, Agree with Above Assessment and Plan
[2024-04-25 11:55] VITALS: O2SAT 99
[2024-04-25 13:22] VITALS: BP 155/64; TEMP 98.6
--- NOTE | 2024-04-25 20:34 | PN ---
Date of Progress Note: 04/24/2024 Subjective: Patient is lying in bed. No new acute event. Chart reviewed. Denies any headache, [place], vomiting, chest pain, abdominal pain, constipation, or diarrhea. Objective: Vital Signs: Reviewed. Lungs: Clear to auscultation. Heart: S1, S2. Regular. Abdomen: Soft, nontender. Bowel sounds present. Extremities: Trace edema. Wound noted. Laboratory Data: Reviewed. Assessment And Plan: Osteomyelitis of right foot, status post resection of fifth ray and wound heali ng well. Continue antibiotic and wound care. We will follow the patient as needed. The patient lucy l be followed by primary care and sap basis consultant as an outpatient. No further recommendations at this ti in. LUNA/MODL Voice ID: [id number] Report ID: [id number]
== END 2024-04-25 13:31 | disposition home health service (06) | DRG 240 ==
LOC: 2ND 11:05
PROVIDERS: ADMIT Hospitalist; ATTEND Hospitalist
PROC: 0Y6M0ZF Detachment at Right Foot, Partial 5th Ray, Open Approach (ICD-10-PCS; principal; 2024-04-23 12:00)
DX: E11.52 Type 2 diabetes mellitus with diabetic peripheral angiopathy with gangrene (principal); L03.115 Cellulitis of right lower limb; M86.171 Other acute osteomyelitis, right ankle and foot; E11.69 Type 2 diabetes mellitus with other specified complication; E11.51 Type 2 diabetes mellitus with diabetic peripheral angiopathy without gangrene; E11.621 Type 2 diabetes mellitus with foot ulcer; L97.519 Non-pressure chronic ulcer of other part of right foot with unspecified severity; E11.22 Type 2 diabetes mellitus with diabetic chronic kidney disease; N18.9 Chronic kidney disease, unspecified; D63.1 Anemia in chronic kidney disease; F17.200 Nicotine dependence, unspecified, uncomplicated; Z79.82 Long term (current) use of aspirin; Z79.02 Long term (current) use of antithrombotics/antiplatelets; Z90.49 Acquired absence of other specified parts of digestive tract; Z86.73 Personal history of transient ischemic attack (TIA), and cerebral infarction without residual deficits; Z79.899 Other long term (current) drug therapy
CPT/HCPCS: 36415; 71045; 76000; 80053; 80202; 82947; 83735; 85025; 85610; 85730; 88305; 88311; 94760; 97116; 97161; 97530; J1100; J2003; J2405; J2704; J3010; J7030; J7040

== ENCOUNTER 2024-04-28 12:02 | Emergency (ER) | payer OTHER ==
--- NOTE | 2024-04-28 13:53 | EDPHYS ---
Physician Documentation [facility] Name: Michael Gaines Jr Age: 64 yrs Sex: Male : 1960 Arrival Date: 04/28/2024 Time: 12:02 Bed 8 Private MD: ED Physician Paresh Barajas HPI: 04/28 13:38 This 64 yrs old Male presents to ER via Wheelchair with complaints of right jr8 foot bleed-Post Sx. 13:38 Onset: The symptoms/episode began/occurred gradually, yesterday. Associated signs and jr8 symptoms: The patient has no apparent associated signs or symptoms. The patient has not experienced similar symptoms in the past. The patient has been recently seen by a physician:. 64-year-old male patient presents emergency room with complaints of postsurgical bleeding to the right foot. Patient stated that he had his toes on the lateral aspect fourth and fifth toe amputated due to chronic wound and diabetes. Stated that the surgery went well on was completed on Monday. Started to see mild bleeding throughout the last 24 hours which has not stopped. Denies trauma to the foot. Historical: - Allergies: 12:31 No Known Allergies; iw - PMHx: 12:31 diabetes mellitus; CVA; Hypertensive disorder; Kidney disease; iw - PSHx: 12:31 Appendectomy; toe amputations; iw - Immunization history:: Adult Immunizations up to date. - Infectious Disease History:: Denies. - Social history:: Smoking status: Patient denies any tobacco usage or history of. ROS: 13:38 Eyes: Negative for injury, pain, redness, and discharge, ENT: Negative for injury, jr8 pain, and discharge, Neck: Negative for injury, pain, and swelling, Cardiovascular: Negative for chest pain, palpitations, and edema, Respiratory: Negative for shortness of breath, cough, wheezing, and pleuritic chest pain, Abdomen/GI: Negative for abdominal pain, nausea, vomiting, diarrhea, and constipation, Back: Negative for injury and pain, MS/Extremity: Negative for injury and deformity, Neuro: Negative for headache, weakness, numbness, tingling, and seizure, Exam: 13:38 Constitutional: This is a well developed, well nourished patient who is awake, alert, jr8 and in no acute distress. Cardiovascular: Regular rate and rhythm with a normal S1 and S2. No gallops, murmurs, or rubs. Normal PMI, no JVD. No pulse deficits. Respiratory: Lungs have equal breath sounds bilaterally, clear to auscultation and percussion. No rales, rhonchi or wheezes noted. No increased work of breathing, no retractions or nasal flaring. Abdomen/GI: Soft, non-tender, with normal bowel sounds. No distension or tympany. No guarding or rebound. No evidence of tenderness throughout. Skin: Warm, dry with normal turgor. Normal color with no rashes, no lesions, and no evidence of cellulitis. Neuro: Awake and alert, GCS 15, oriented to person, place, time, and situation. Motor strength 5/5 in all extremities. Sensory grossly intact. 13:38 Musculoskeletal/extremity: Extremities: grossly normal except: noted in the right foot: Patient has surgical incision with sutures placed to the right anterior and lateral foot with absence of the third fourth and fifth digits. Mild bleeding noted to the tip of a irregular skin flap region. No gross bleeding at this time., ROM: intact in all extremities, Circulation is intact in all extremities. Sensation intact. Vital Signs: 12:29 BP 137 / 67; Pulse 63; Resp 16; Temp 98; Pulse Ox 100% on R/A; Weight 78.47 kg; Height iw 5 ft. 7 in. ; Pain 0/10; 14:20 BP 131 / 74; Pulse 70; Resp 17; Pulse Ox 98% on R/A; rs5 12:29 Body Mass Index 27.10 (78.47 kg, 170.18 cm) iw 12:29 Pain Scale: Adult iw MDM: 12:47 Medical Screening Exam initiated jr8 13:38 Data reviewed: vital signs, nurses notes, and as a result, I will discharge patient. jr8 Counseling: I had a detailed discussion with the patient and/or guardian regarding the historical points, exam findings, and any diagnostic results supporting the discharge/admit diagnosis, the need for outpatient follow up, a turnaround engineer, to return to the emergency department if symptoms worsen or persist or if there are any questions or concerns that arise at home. ED course: Applied Surgicel and pressure dressing to the bleeding area. Bleeding well-controlled at this time and finished bandaging the foot. Patient has appointment with his podiatric surgeon tomorrow. To keep the bandage on for the next 24 hours until he sees patient his surgeon. If you are to have acute change or worsen, to emergency room. Patient understanding of plan this time.. Administered Medications: No medications were administered Disposition Summary: 04/28/24 13:52 Discharge Ordered Notes: Location: Home jr8 Problem: new jr8 Symptoms: have improved jr8 Condition: Stable jr8 Diagnosis - Post surgical bleeding right foot jr8 Followup: jr8 - With: Jaswant Lacy DPM - When: Tomorrow - Reason: Wound Recheck, Recheck today's complaints, Continuance of care, Re-evaluation by your physician Discharge Instructions: - Discharge Summary Sheet jr8 - Wound Care, Adult jr8 Forms: - Medication Reconciliation Form jr8 - Antibiotic Education jr8 - Prescription Opioid Use jr8 - Patient Portal Instructions jr8 - Leadership Thank You Letter jr8 Signatures: Ashleigh Ghotra RN RN iw Gregg Machuca PA PA jr8
--- NOTE | 2024-04-28 13:53 | ER ---
Nurse's Notes [facility] Name: Michael Gaines Jr Age: 64 yrs Sex: Male : 1960 Arrival Date: 04/28/2024 Time: 12:02 Bed 8 Private MD: Diagnosis: Post surgical bleeding right foot Presentation: 04/28 12:29 Chief complaint: Patient states: was just discharged, had an amputation of 5th digit on iw right foot , was released , surgery was done by Dr. Lacy , started having bleeding to the site. Coronavirus screen: At this time, the client does not indicate any symptoms associated with coronavirus-19. Ebola Screen: No symptoms or risks identified at this time. Initial Sepsis Screen: Does the patient meet any 2 criteria? No. Patient's initial sepsis screen is negative. Does the patient have a suspected source of infection? No. Patient's initial sepsis screen is negative. Risk Assessment: Do you want to hurt yourself or someone else? Patient reports no desire to harm self or others. Onset of symptoms was April 28, 2024. 12:29 Method Of Arrival: Wheelchair iw 12:29 Acuity: CRIS 3 iw Triage Assessment: 12:33 General: Appears in no apparent distress. comfortable, Behavior is calm, cooperative. rs5 Historical: - Allergies: 12:31 No Known Allergies; iw - PMHx: 12:31 diabetes mellitus; CVA; Hypertensive disorder; Kidney disease; iw - PSHx: 12:31 Appendectomy; toe amputations; iw - Immunization history:: Adult Immunizations up to date. - Infectious Disease History:: Denies. - Social history:: Smoking status: Patient denies any tobacco usage or history of. Screenin:32 [facility] ED Fall Risk Assessment (Adult) History of falling in the last 3 months, rs5 including since admission No falls in past 3 months (0 pts) Confusion or Disorientation No (0 pts) Intoxicated or Sedated No (0 pts) Impaired Gait No (0 pts) Mobility Assist Device Used No (0 pt) Altered Elimination No (0 pt) Score/Fall Risk Level 0 - 2 = Low Risk Oriented to surroundings, Maintained a safe environment. Abuse screen: Denies threats or abuse. Nutritional screening: No deficits noted. Tuberculosis screening: No symptoms or risk factors identified. Assessment: 12:35 General: Appears in no apparent distress. comfortable, Behavior is calm, cooperative. rs5 Pain: Denies pain. Neuro: Level of Consciousness is awake, alert, obeys commands, Oriented to person, place, time, situation. Cardiovascular: Patient's skin is warm and dry. Respiratory: Airway is patent Respiratory effort is even, unlabored, Respiratory pattern is regular, symmetrical. GI: Abdomen is round non-distended, Abd is soft and non tender X 4 quads. : No signs and/or symptoms were reported regarding the genitourinary system. EENT: No signs and/or symptoms were reported regarding the EENT system. Derm: Skin is intact, Skin is pink, warm \T\ dry. Musculoskeletal: Amputation of Other: no signs of infection or bleeding noted to amputation on fifth digit on right toe. 13:41 Reassessment: Patient and/or family updated on plan of care and expected duration. Pain rs5 level reassessed. Patient is alert, oriented x 3, equal unlabored respirations, skin warm/dry/pink. 14:20 Reassessment: Patient and/or family updated on plan of care and expected duration. Pain rs5 level reassessed. Patient is alert, oriented x 3, equal unlabored respirations, skin warm/dry/pink. Vital Signs: 12:29 BP 137 / 67; Pulse 63; Resp 16; Temp 98; Pulse Ox 100% on R/A; Weight 78.47 kg; Height iw 5 ft. 7 in. ; Pain 0/10; 14:20 BP 131 / 74; Pulse 70; Resp 17; Pulse Ox 98% on R/A; rs5 12:29 Body Mass Index 27.10 (78.47 kg, 170.18 cm) iw 12:29 Pain Scale: Adult iw ED Course: 12:03 Patient arrived in ED. ra3 12:16 Gregg Machuca PA is PHCP. jr8 12:16 Paresh Barajas MD is Attending Physician. jr8 12:31 Triage completed. iw 12:32 Arm band placed on. iw 12:32 Patient has correct armband on for positive identification. Placed in gown. Bed in low rs5 position. Call light in reach. Side rails up X2. 12:32 No provider procedures requiring assistance completed. rs5 12:45 Julito Etienne, RN is Primary Nurse. rs5 13:51 Jaswant Lacy DPM is Referral Physician. jr8 14:20 Provided Education on: discharge instrutions . rs5 14:20 Patient did not have IV access during this emergency room visit. rs5 Administered Medications: No medications were administered Medication: 14:20 VIS not applicable for this client. rs5 Outcome: 13:52 Discharge ordered by MD. jr8 14:20 Discharged to home via wheelchair, with family, rs5 14:20 Condition: stable rs5 14:20 Discharge instructions given to patient, family, Instructed on discharge instructions, follow up and referral plans. Demonstrated understanding of instructions, follow-up care, 14:27 Patient left the ED. rs5 Signatures: Ashleigh Ghotra RN RN Gregg Bernard PA PA jr8 Julito Etienne, RN RN rs5 Savannah Jean ra3 Corrections: (The following items were deleted from the chart) 14:37 14:37 BP 131 / 74; Pulse 70bpm; Resp 17bpm; Pulse Ox 98% RA; rs5 rs5 14:37 14:37 BP 131 / 74; Pulse 70bpm; Resp 17bpm; Pulse Ox 98% RA; rs5 rs5
[2024-04-28 15:02] VITALS: BP 137/67; TEMP 98; O2SAT 100
== END 2024-04-28 14:27 | disposition home or self-care (01) ==
LOC: ER 12:02
DX: L76.22 Postprocedural hemorrhage of skin and subcutaneous tissue following other procedure (principal); Z89.421 Acquired absence of other right toe(s)
CPT/HCPCS: 99282

== ENCOUNTER 2024-05-07 15:56 | Emergency (ER) | payer OTHER ==
[2024-05-07 18:55] LABS: Absolute Basophils 0.1 K/uL (0-0.5); Absolute Eosinophils 0.2 K/uL (0-0.5); Absolute Lymphocytes (CBC) 1.7 K/uL (0.7-4.9); Absolute Monocytes 0.5 K/uL (0.1-1.3); Absolute Neutrophil 4.7 K/uL (1.8-8.0); Basophils % 1.2 % (0-1.3); Eosinophils % 2.9 % (0-4.4); Hematocrit 29.8 % (39.6-49.0); Hemoglobin 9.8 g/dL (13.6-17.9); Lymphocytes % 24.1 % (15.3-44.8); MCH 30.5 pg (27.0-35.0); MCHC 32.8 g/dL (32.0-36.0); MCV 93.1 fL (80-100); MPV 8.7 fL (7.6-11.3); Monocytes % 6.4 % (3.3-12.3); Neutrophils % 65.4 % (41.7-73.7); Platelets 320 thou/uL (152-406); Red Cell Distribution Width 15.8 % (12.1-15.2)
[2024-05-07 19:16] LABS: Anion Gap 11.7 mEq/L (5.0-15.0)
[2024-05-07 19:17] LABS: Potassium 5.7 mEq/L (3.5-5.1)
--- NOTE | 2024-05-07 21:42 | ER ---
Nurse's Notes [facility] Name: Michael Gaines Jr Age: 64 yrs Sex: Male : 1960 Arrival Date: 05/07/2024 Time: 15:56 Bed 7 Private MD: Diagnosis: Chronic kidney disease, stage 4 (severe);Acute hyperkalemia Presentation: 05/07 16:57 Chief complaint: Patient states: Had blood work done yesterday at PCP, called today and ph told the to come to the ER for high potassium, " they said it was 6 point something." Pt has no complaints, hx of stage 4 kidney disease. Coronavirus screen: Vaccine status: Patient reports being unvaccinated. Ebola Screen: No symptoms or risks identified at this time. Initial Sepsis Screen: Does the patient meet any 2 criteria? No. Patient's initial sepsis screen is negative. Does the patient have a suspected source of infection? No. Patient's initial sepsis screen is negative. Risk Assessment: Do you want to hurt yourself or someone else? Patient reports no desire to harm self or others. Onset of symptoms was May 07, 2024. 16:57 Method Of Arrival: Wheelchair 16:57 Acuity: CRIS 3 ph Triage Assessment: 17:01 General: Appears in no apparent distress. Behavior is calm, cooperative. Pain: Denies ph pain. Neuro: Level of Consciousness is awake, alert, obeys commands, Oriented to person, place, time, situation. Cardiovascular: Denies chest pain. Musculoskeletal: Circulation, motion, and sensation intact. Range of motion: intact in all extremities. Historical: - Allergies: 17:02 No Known Allergies; ph - PMHx: 17:01 CVA; diabetes mellitus; Hypertensive disorder; kidney disease; ph - PSHx: 17:01 Appendectomy; toe amputations; ph - Immunization history:: Adult Immunizations up to date. - Infectious Disease History:: Denies. - Social history:: Smoking status: Patient denies any tobacco usage or history of. Screenin:45 [facility] ED Fall Risk Assessment (Adult) History of falling in the last 3 months, bp including since admission No falls in past 3 months (0 pts) Confusion or Disorientation No (0 pts) Intoxicated or Sedated No (0 pts) Impaired Gait No (0 pts) Mobility Assist Device Used No (0 pt) Altered Elimination No (0 pt) Score/Fall Risk Level 0 - 2 = Low Risk. Abuse screen: Denies threats or abuse. Denies injuries from another. Nutritional screening: No deficits noted. Tuberculosis screening: No symptoms or risk factors identified. Assessment: 18:00 General: Appears in no apparent distress. comfortable, Behavior is calm, cooperative, bp appropriate for age. 21:04 Reassessment: Patient appears in no apparent distress at this time. Patient and/or bm8 family updated on plan of care and expected duration. Pain level reassessed. Patient is alert, oriented x 3, equal unlabored respirations, skin warm/dry/pink. Patient denies pain at this time. Patient states feeling better. Reassessment: pt reports that he was sent by pcp for abnormal labs, a recollect was done at 2046 and awaiting results. Pain: Denies pain. Neuro: No deficits noted. Level of Consciousness is awake, alert, obeys commands, Oriented to person, place, time, situation, Appropriate for age. Cardiovascular: Denies chest pain, Heart tones S1 S2 present Capillary refill < 3 seconds in bilateral fingers Patient's skin is warm and dry. Respiratory: Airway is patent Respiratory effort is even, unlabored, Respiratory pattern is regular, symmetrical, Breath sounds are clear bilaterally. GI: No signs and/or symptoms were reported involving the gastrointestinal system. : No signs and/or symptoms were reported regarding the genitourinary system. EENT: No signs and/or symptoms were reported regarding the EENT system. Derm: No signs and/or symptoms reported regarding the dermatologic system. Musculoskeletal: No signs and/or symptoms reported regarding the musculoskeletal system. 22:21 Reassessment: Patient appears in no apparent distress at this time. No changes from al5 previously documented assessment. Patient and/or family updated on plan of care and expected duration. Pain level reassessed. Patient is alert, oriented x 3, equal unlabored respirations, skin warm/dry/pink. Vital Signs: 16:57 Pulse 60; Resp 18; Temp 97.8; Pulse Ox 100% on R/A; Weight 81.65 kg; Height 5 ft. 7 in. ph ; 17:01 BP 144 / 58; ph 21:05 BP 164 / 94; Pulse 65; Resp 18; Temp 97.8; Pulse Ox 99% ; Pain 0/10; bm8 21:30 BP 173 / 68; Pulse 65; Resp 18; Pulse Ox 100% on R/A; al5 22:00 BP 164 / 68; Pulse 67; Resp 17; Pulse Ox 99% on R/A; al5 16:57 Body Mass Index 28.19 (81.65 kg, 170.18 cm) ph 21:05 Pain Scale: Adult bm8 [place] Coma Score: 21:05 Eye Response: spontaneous(4). Motor Response: obeys commands(6). Verbal Response: bm8 oriented(5). Total: 15. ED Course: 15:59 Patient arrived in ED. mg5 15:59 Gaudencio Szymanski MD is Attending Physician. ec2 17:00 Triage completed. ph 17:02 Arm band placed on Patient placed in waiting room, Patient notified of wait time. ph 17:38 Bam Leal, BRISEYDA is Primary Nurse. bp 18:10 Attending Physician role handed off by Gaudencio Szymanski MD ec2 18:10 Savage Martinez DO is Attending Physician. ec2 18:45 Patient has correct armband on for positive identification. Bed in low position. bp 18:45 Initial lab(s) drawn, by me, sent to lab. EKG done, by ED staff, reviewed by Savage Martinez DO. Inserted saline lock: 22 gauge in right hand, using aseptic technique. Blood collected. Flushed with 10 mL NS. 20:04 Attending Physician role handed off by Savage Martinez DO sp4 20:04 Manjit Sharma MD is Attending Physician. sp4 21:05 Client placed on continuous cardiac and pulse oximetry monitoring. NIBP monitoring bm8 applied. waste water worker on. Pulse ox on. NIBP on. Door closed. Noise minimized. Warm blanket given. Pillow given. Verbal reassurance given. Head of bed elevated. 21:05 No provider procedures requiring assistance completed. Patient maintains SpO2 bm8 saturation greater than 95% on room air. 22:21 Provided Education on: discharge follow up, medications. al5 22:22 IV discontinued, intact, bleeding controlled, No redness/swelling at site. Pressure al5 dressing applied. Administered Medications: 22:19 Drug: Kayexalate PO 15 grams PO once Route: PO; al5 22:19 Follow up: Response: No adverse reaction al5 Medication: 21:05 VIS not applicable for this client. bm8 Outcome: 21:42 Discharge ordered by MD. price 22:22 Discharged to home via wheelchair, with significant other, al5 22:22 Condition: good 22:22 Discharge instructions given to patient, significant other, Instructed on discharge instructions, follow up and referral plans. medication usage, Demonstrated understanding of instructions, follow-up care, medications, Prescriptions given X 1, 22:22 Patient left the ED. al5 Signatures: Shivani Machado, RN RN Bam Leal, RN RN Manjit Carl MD MD sp4 Katherine De La Cruz 5 Gaudencio Szymanski MD MD ec2 Shaq Lentz RN RN bm8 Adela Gutierrez RN RN al5
--- NOTE | 2024-05-07 21:42 | EDPHYS ---
Physician Documentation [facility] Name: Michael Gaines Jr Age: 64 yrs Sex: Male : 1960 Arrival Date: 05/07/2024 Time: 15:56 Bed 7 Private MD: ED Physician Manjit Sharma HPI: 05/07 17:02 This 64 yrs old Male presents to ER via Wheelchair with complaints of Abnormal ec2 Lab Results. 17:02 Patient arrives today for evaluation of abnormal labs. Patient had outpatient blood ec2 work done yesterday was told he has an elevated potassium and to come to the ED for evaluation. Patient reported that it was 6.X. Patient with history of CKD.. Historical: - Allergies: 17:02 No Known Allergies; ph - PMHx: 17:01 CVA; diabetes mellitus; Hypertensive disorder; kidney disease; ph - PSHx: 17:01 Appendectomy; toe amputations; ph - Immunization history:: Adult Immunizations up to date. - Infectious Disease History:: Denies. - Social history:: Smoking status: Patient denies any tobacco usage or history of. ROS: 17:02 Constitutional: as per hpi ec2 Exam: 17:02 Constitutional: GEN: NAD Head: atraumatic Eyes: EOMI Ears: External ears are ec2 normal. CV: regular rate LUNGS: no respiratory distress ABD: non-distended SKIN: no evidence of rashes MSK: no evidence of trauma 19:53 ECG was reviewed by the Attending Physician. ms3 05/08 05:55 Constitutional: This is a well developed, well nourished patient who is awake, alert, sp4 and in no acute distress. Head/Face: Normocephalic, atraumatic. Eyes: Pupils equal round and reactive to light, extra-ocular motions intact. Lids and lashes normal. Conjunctiva and sclera are not injected. Cornea within normal limits. Periorbital areas with no swelling, redness, or edema. ENT: Nares patent. No nasal discharge, no septal abnormalities noted. Tympanic membranes are normal and external auditory canals are clear. Oropharynx with no redness, swelling, or masses, exudates, or evidence of obstruction, uvula midline. Mucous membranes moist. Neck: Trachea midline, no thyromegaly or masses palpated, and no cervical lymphadenopathy. Supple, full range of motion without nuchal rigidity, or vertebral point tenderness. Chest/axilla: Normal chest wall appearance and motion. Nontender with no deformity. No lesions are appreciated. Cardiovascular: Regular rate and rhythm with a normal S1 and S2. No gallops, murmurs, or rubs. Normal PMI, no JVD. No pulse deficits. Respiratory: Lungs have equal breath sounds bilaterally, clear to auscultation and percussion. No rales, rhonchi or wheezes noted. No increased work of breathing, no retractions or nasal flaring. Abdomen/GI: Soft, with normal bowel sounds. No distension or tympany. No guarding or rebound. No evidence of tenderness throughout. Back: No spinal tenderness. No costovertebral tenderness. Skin: Warm, dry with normal turgor. Normal color with no rashes, no lesions, and no evidence of cellulitis. MS/ Extremity: Pulses equal, no cyanosis. Neurovascular intact. Full, normal range of motion. Neuro: Awake and alert, GCS 15, oriented to person, place, Non ambulatory male, moves all extremities Vital Signs: 05/07 16:57 Pulse 60; Resp 18; Temp 97.8; Pulse Ox 100% on R/A; Weight 81.65 kg; Height 5 ft. 7 in. ph ; 17:01 BP 144 / 58; ph 21:05 BP 164 / 94; Pulse 65; Resp 18; Temp 97.8; Pulse Ox 99% ; Pain 0/10; bm8 21:30 BP 173 / 68; Pulse 65; Resp 18; Pulse Ox 100% on R/A; al5 22:00 BP 164 / 68; Pulse 67; Resp 17; Pulse Ox 99% on R/A; al5 16:57 Body Mass Index 28.19 (81.65 kg, 170.18 cm) ph 21:05 Pain Scale: Adult bm8 [place] Coma Score: 21:05 Eye Response: spontaneous(4). Motor Response: obeys commands(6). Verbal Response: bm8 oriented(5). Total: 15. MDM: 16:26 Medical Screening Exam initiated ec2 17:02 Data reviewed: vital signs, nurses notes. ED course: Patient arrives today for ec2 evaluation of possible hyperkalemia. Examination is unrevealing. Will obtain lab work as well as EKG. Evaluating for CKD, hyperkalemia, possible lab error. 18:10 Transition of care: After a detail discussion of the patient's case, care is ec2 transferred to Savage Martinez DO. ED course: Patient signed out pending lab work and EKG.. 18:14 Transition of care: Care assumed from Gaudencio Szymanski MD. ms3 20:28 Transition of care: After a detail discussion of the patient's case, care is ms3 transferred to Manjit Sharma MD. ED course: Patient pending repeat potassium as initial draw had hemolysis. 21:40 Differential Diagnosis altered mental status, sepsis, flu. ED course: Repeat potassium sp4 is 5.4. Dr. Branch advised p.o. Kayexalate 15 g daily until he can see patient on Monday in the office.. 05/07 16:26 Order name: Basic Metabolic Panel; Complete Time: 19:49 ec2 05/07 16:26 Order name: CBC with Diff; Complete Time: 19:49 ec2 05/07 19:50 Order name: Potassium; Complete Time: 21:30 ms3 05/07 16:26 Order name: Cardiac monitoring; Complete Time: 18:47 ec2 05/07 16:26 Order name: EKG - Nurse/Tech; Complete Time: 18:47 ec2 05/07 16:26 Order name: IV Saline Lock; Complete Time: 18:47 ec2 05/07 16:26 Order name: Labs collected and sent; Complete Time: 18:47 ec2 05/07 16:26 Order name: O2 Per Protocol; Complete Time: 18:47 ec2 05/07 16:26 Order name: O2 Sat Monitoring; Complete Time: 18:47 ec2 EC:53 Rate is 61 beats/min. Rhythm is regular. QRS [place] is Normal. MD interval is normal. QRS ms3 interval is normal. Clinical impression: NSR w/ Non-specific ST/T Changes. Interpreted by me. Reviewed by me. Administered Medications: 22:19 Drug: Kayexalate PO 15 grams PO once Route: PO; al5 22:19 Follow up: Response: No adverse reaction al5 Disposition Summary: 05/07/24 21:42 Discharge Ordered Problem: new sp4 Symptoms: have improved sp4 Condition: Stable sp4 Diagnosis - Chronic kidney disease, stage 4 (severe) sp4 - Acute hyperkalemia sp4 Followup: sp4 - With: Private Physician - When: 2 - 3 days - Reason: Recheck today's complaints Discharge Instructions: - Discharge Summary Sheet sp4 - Chronic Kidney Disease, Adult, [id number]-[id number] sp4 Forms: - Patient Portal Instructions sp4 Prescriptions: - sodium polystyrene sulfonate Oral powder - take 15 gram ORAL route every morning for 10 days; 150 gram; Refills: 0, sp4 Product Selection Permitted Signatures: Dispatcher [employer] EDShivani Lora, RN RN ph Savage Martinez DO DO ms3 Manjit Sharma MD MD sp4 Gaudencio Szymanski MD MD ec2 Adlea Gutierrez RN RN al5 Corrections: (The following items were deleted from the chart) 16:26 16:26 BASIC METABOLIC PANEL+C.LAB.BRZ ordered. EDMS EDMS 16:26 16:26 CBC+H.LAB.BRZ ordered. EDMS EDMS
[2024-05-07] MEDS ORDERED: SOD POLYSTYREN SUL 15 GM/60 ML UCUP ONE (21:59)
[2024-05-07 22:29] VITALS: TEMP 97.8
[2024-05-07 22:33] VITALS: BP 164/68; O2SAT 99
== END 2024-05-07 22:22 | disposition home or self-care (01) ==
LOC: ER 15:56
DX: E87.5 Hyperkalemia (principal); E11.22 Type 2 diabetes mellitus with diabetic chronic kidney disease; I12.9 Hypertensive chronic kidney disease with stage 1 through stage 4 chronic kidney disease, or unspecified chronic kidney disease; N18.4 Chronic kidney disease, stage 4 (severe); Z86.73 Personal history of transient ischemic attack (TIA), and cerebral infarction without residual deficits
CPT/HCPCS: 36415; 80048; 84132; 85025; 93005; 99285

== ENCOUNTER 2024-09-13 13:49 | Emergency (ER) | payer OTHER ==
[2024-09-13 14:46] LABS: Absolute Basophils 0.1 K/uL (0-0.5); Absolute Eosinophils 0.2 K/uL (0-0.5); Absolute Monocytes 0.5 K/uL (0.1-1.3); Absolute Neutrophil 8.5 K/uL (1.8-8.0); Basophils % 0.7 % (0-1.3); Eosinophils % 1.6 % (0-4.4); Hematocrit 32.7 % (39.6-49.0); Hemoglobin 11.3 g/dL (13.6-17.9); Lymphocytes % 9.6 % (15.3-44.8); MCH 30.5 pg (27.0-35.0); MCHC 34.5 g/dL (32.0-36.0); MCV 88.5 fL (80-100); MPV 9.2 fL (7.6-11.3); Monocytes % 5.3 % (3.3-12.3); Neutrophils % 82.8 % (41.7-73.7); Platelets 231 thou/uL (152-406); RBC Red Blood Cell Count 3.69 M/uL (4.33-5.43); Red Cell Distribution Width 13.9 % (12.1-15.2)
[2024-09-13 15:01] LABS: Anion Gap 7.8 mEq/L (5.0-15.0); Potassium 3.8 mEq/L (3.5-5.1)
--- NOTE | 2024-09-13 15:02 | EDPHYS ---
Physician Documentation [facility] Name: Michael Gaines Jr Age: 64 yrs Sex: Male : 1960 Arrival Date: 09/13/2024 Time: 13:49 Bed 7 Private MD: ED Physician Gaudencio Szymanski HPI: 09/13 13:51 This 64 yrs old Male presents to ER via Unassigned with complaints of low bs. ec2 13:51 Patient arrives today for evaluation of hypoglycemia. Patient reports that he EMS ec2 reports that patient self-administered 20 units of insulin, did not eat breakfast or lunch this morning. EMS reports that they given patient dextrose containing fluid which improved his blood sugar to the 200s. Patient with no complaints at this time.. Historical: - Allergies: 13:58 No Known Allergies; ap3 - PMHx: 13:58 CVA; diabetes mellitus; Hypertensive disorder; kidney disease; ap3 - PSHx: 13:58 Appendectomy; toe amputations; ap3 - Immunization history:: Adult Immunizations unknown. - Infectious Disease History:: Denies. - Social history:: Smoking status: unknown. ROS: 13:52 Constitutional: as per hpi ec2 Exam: 13:52 Constitutional: GEN: NAD Head: atraumatic Eyes: EOMI Ears: External ears are ec2 normal. CV: regular rate LUNGS: no respiratory distress ABD: non-distended SKIN: no evidence of rashes MSK: no evidence of trauma Vital Signs: 13:54 BP 179 / 62; Pulse 65; Resp 18; Pulse Ox 99% on R/A; ap3 16:34 BP 170 / 60; Pulse 68; Resp 17; Pulse Ox 100% on R/A; ap3 17:18 BP 164 / 54; Pulse 67; Resp 17; Pulse Ox 100% on R/A; ap3 MDM: 13:51 Medical Screening Exam initiated ec2 13:52 Data reviewed: vital signs, nurses notes. ED course: Patient arrives today for the ec2 hypoglycemia that is since resolved. Examination is unrevealing. Will obtain basic lab work. Suspect hypoglycemia secondary to poor p.o. intake. Will obtain repeat lab work, p.o. challenge patient and recheck blood sugar.. 15:02 ED course: Patient lab work is unrevealing. Instructed the patient on eating well and ec2 taking his insulin. Will discharge home have patient follow-up PCP. Patient adequately tolerating p.o. without issue.. 15:39 ED course: At time of discharge patient family reports patient with recurrent urinary ec2 tract infections, will send UA as well.. 09/13 13:51 Order name: CBC with Diff; Complete Time: 15:01 ec2 09/13 13:51 Order name: BMP; Complete Time: 15:01 ec2 09/13 14:29 Order name: Glucose, Ancillary Testing; Complete Time: 15:01 EDMS 09/13 15:17 Order name: Glucose, Ancillary Testing; Complete Time: 15:41 EDMS 09/13 15:39 Order name: UAM; Complete Time: 16:43 ec2 09/13 13:51 Order name: IV; Complete Time: 14:00 ec2 09/13 13:51 Order name: PO challenge; Complete Time: 14:00 ec2 09/13 13:51 Order name: Accucheck; Complete Time: 14:19 ec2 09/13 15:02 Order name: Accucheck; Complete Time: 15:05 ec2 Administered Medications: No medications were administered Disposition Summary: 09/13/24 16:56 Discharge Ordered Notes: Location: Home(09/13/24 16:56) ec2 Condition: Stable(09/13/24 16:56) ec2 Diagnosis - Hypoglycemia, unspecified(09/13/24 16:56) ec2 Followup: ec2 - With: Private Physician - When: - Reason: Re-evaluation by your physician Forms: - Medication Reconciliation Form ec2 - Antibiotic Education ec2 - Prescription Opioid Use ec2 - Patient Portal Instructions ec2 - Leadership Thank You Letter ec2 Signatures: Dispatcher [employer] Adela Mclean RN RN ap3 Gaudencio Szymanski MD MD ec2 Corrections: (The following items were deleted from the chart) 15:48 15:02 Home ec2 ec2 15:48 15:02 Stable ec2 ec2 15:48 15:02 Hypoglycemia, unspecified ec2 ec2 16:33 16:18 Alas ordered. ec2 ap3
--- NOTE | 2024-09-13 15:02 | ER ---
Nurse's Notes [facility] Name: Michael Gaines Jr Age: 64 yrs Sex: Male : 1960 Arrival Date: 09/13/2024 Time: 13:49 Bed 7 Private MD: Diagnosis: Hypoglycemia, unspecified Presentation: 09/13 13:54 Chief complaint: EMS states: they were called for low blood sugar of 46. EMS reports ap3 they gave oral glucose and sugar was up to 58. EMS initiated 20g right hand and started d10 and reported BGL of 246. Coronavirus screen: At this time, the client does not indicate any symptoms associated with coronavirus-19. Ebola Screen: No symptoms or risks identified at this time. Initial Sepsis Screen: Does the patient meet any 2 criteria? No. Patient's initial sepsis screen is negative. Does the patient have a suspected source of infection? No. Patient's initial sepsis screen is negative. Risk Assessment: Do you want to hurt yourself or someone else? Patient reports no desire to harm self or others. Onset of symptoms was September 13, 2024. 13:54 Method Of Arrival: EMS: [facility] ap3 13:54 Acuity: CRSI 3 ap3 13:58 Care prior to arrival: Medication(s) given: Glucagon, d10 IV initiated. 20 GA, in the ap3 right hand. Triage Assessment: 13:58 General: Appears in no apparent distress. Behavior is calm, cooperative, appropriate ap3 for age. Pain: Denies pain. Neuro: Level of Consciousness is awake, alert, obeys commands, Oriented to person, place, time, situation, Appropriate for age. Cardiovascular: Patient's skin is warm and dry. Respiratory: Airway is patent Respiratory effort is even, unlabored, Respiratory pattern is regular, symmetrical. Historical: - Allergies: 13:58 No Known Allergies; ap3 - PMHx: 13:58 CVA; diabetes mellitus; Hypertensive disorder; kidney disease; ap3 - PSHx: 13:58 Appendectomy; toe amputations; ap3 - Immunization history:: Adult Immunizations unknown. - Infectious Disease History:: Denies. - Social history:: Smoking status: unknown. Screenin:59 Abuse screen: Denies threats or abuse. Nutritional screening: No deficits noted. ap3 Tuberculosis screening: No symptoms or risk factors identified. 15:38 [facility] ED Fall Risk Assessment (Adult) History of falling in the last 3 months, ap3 including since admission Yes- single mechanical fall (1 pt) Confusion or Disorientation No (0 pts) Intoxicated or Sedated No (0 pts) Impaired Gait Yes (1 pt) Mobility Assist Device Used Yes (1 pt) Altered Elimination Score/Fall Risk Level 3 or more points = High Risk Oriented to surroundings, Maintained a safe environment, Educated pt \T\ family on fall prevention, incl call for assistance when getting out of bed, Assessed \T\ reinforced patient's understanding of fall precautions, Hourly rounding (assess needs \T\ fall precautionary measures) done, Used ambulatory aids as needed (educated on \T\ assisted with), Remained w/in arm's length of patient and in sight while toileting, Offered frequent toileting (1:1 observation), Remained with patient while ambulating, Utilized family, sitter, or virtual machine operator general as indicated. Assessment: 13:59 Reassessment: patient provided with a sandwhich and juice. ap3 15:37 Reassessment: patients family requests urine testing. awaiting to discharge for patient ap3 to urine. Vital Signs: 13:54 BP 179 / 62; Pulse 65; Resp 18; Pulse Ox 99% on R/A; ap3 16:34 BP 170 / 60; Pulse 68; Resp 17; Pulse Ox 100% on R/A; ap3 17:18 BP 164 / 54; Pulse 67; Resp 17; Pulse Ox 100% on R/A; ap3 ED Course: 13:50 Patient arrived in ED. ec2 13:51 Gaudencio Szymanski MD is Attending Physician. ec2 13:57 Triage completed. ap3 13:59 Arm band placed on right wrist. ap3 14:00 Patient has correct armband on for positive identification. Placed in gown. Bed in low ap3 position. Call light in reach. Side rails up X2. 14:19 Adela Awad, BRISEYDA is Primary Nurse. ap3 16:33 [facility] Sent. ap3 17:19 Provided Education on: discharge instructions. ap3 17:19 No provider procedures requiring assistance completed. IV discontinued, intact, ap3 bleeding controlled, No redness/swelling at site. Pressure dressing applied. Administered Medications: No medications were administered Medication: 17:19 VIS not applicable for this client. ap3 Outcome: 15:02 Discharge ordered by . ec2 16:56 Discharge ordered by . ec2 17:19 Discharged to home via wheelchair, ap3 17:19 Condition: good 17:19 Discharge instructions given to patient, family, Instructed on discharge instructions, follow up and referral plans. Demonstrated understanding of instructions, follow-up care, 17:26 Patient left the ED. ap3 Signatures: Adela Awad RN RN ap3 Gaudencio Szymanski MD MD ec2
[2024-09-13 16:41] LABS: Specific Gravity 1.015 (1.005-1.030); Sqamous Epithelial None Seen /HPF (None Seen); Urine Bacteria None Seen /HPF (<20); Urine Bilirubin NEGATIVE (Negative); Urine Blood Negative (Negative); Urine Clarity Turbid (Clear); Urine Color Light-Yellow (Yellow); Urine Crystals Unidentified Few /HPF (None Seen); Urine Culture Reflex Order NOT NEEDED; Urine Glucose 2+ (Negative); Urine Ketones NEGATIVE (Negative); Urine Micro Reflex YN NO BILL MICROSCOPIC; Urine Mucus Slight /HPF (None Seen); Urine Nitrite NEGATIVE (Negative); Urine Protein 1+ (Negative); Urine RBC <5 /HPF (None Seen); Urine Urobilinogen Normal (Normal); Urine WBC <5 /HPF (<5); Urine Yeast (Budding) Trace /HPF (None Seen); Urine pH 6.5 (5.0-7.0)
[2024-09-13 17:32] VITALS: O2SAT 100
[2024-09-13 17:33] VITALS: BP 164/54
== END 2024-09-13 17:26 | disposition home or self-care (01) ==
LOC: ER 13:49
DX: E11.649 Type 2 diabetes mellitus with hypoglycemia without coma (principal); I10 Essential (primary) hypertension; Z86.73 Personal history of transient ischemic attack (TIA), and cerebral infarction without residual deficits
CPT/HCPCS: 36415; 80048; 81001; 82947; 85025; 99284

== ENCOUNTER 2024-09-19 10:23 | Emergency (ER) | payer OTHER ==
--- OUTSIDE RECORDS SUMMARY | 2024-09-19 10:31 | XMS REPORT | Continuity of Care Document ---
Author Name Unknown Address [address] [facility]. [address] [place] [address] [facility] Address [address] [facility] [place] [address] Care Team Providers Care Cut Tobacco Bulker Name Role Phone Humaira Pal NP Primary Care Physician [phone] Chandan Branch Attending Clinician Unavail able Dorinda Li Attending Clinician Unavailable JULITO MAYBERRY Attending Clinician Unavail able Julito Mayberry MD Attending Clinician Calos Morris Admitting Clinician Unavailable Abrahan Ballard Admitting Clinician Unavailable Payers Payer Name Policy Type Policy Number Effective Date Expirati on Date Source [employer] MEDICARE ADVANTAGE Medicare [id number] 2022 00:00:00 Problems Condition Name Condition Details Condition Category Status Onset Date Resolution Date Last Treatment Date Treating Clinician Comments Source Dysphagia Dysphagia Disease Active 2023-06 00:00: 00 Memramakrishna Ware Epic Hyperlipid emia Hyperlipid emia Disease Active 2023-06 00:00: 00 Roscoe Ware Epic Pseudobulb ar affect Pseudobulb ar affect Disease Active 2023-06 00:00: 00 Roscoe Ware Epic Hypertensi on Hypertensi on Disease Active 2023-06 00:00: 00 Roscoe Brizuela PVD (periphera l vascular disease) PVD (periphera l vascular disease) Disease Active 2023-06 00:00: 00 Roscoe Brizuela Syncope Syncope Disease Active 2023-06 00:00: 00 oRscoe Brizuela Type 2 diabetes mellitus Type 2 diabetes mellitus Disease Active 2023-06 00:00: 00 Roscoe Brizuela Anemia Anemia Disease Active 2023-06 00:00: 00 Roscoe Brizuela Cerebrovas cular accident (CVA) Cerebrovas cular accident (CVA) Disease Active 2023-06 00:00: 00 Roscoe Brizuela Depression Depression Disease Active 2023-06 00:00: 00 Roscoe Brizuela Stage 3 chronic kidney disease Stage 3 chronic kidney disease Disease Active 2022-06 00:00: 00 Roscoe Brizuela Dysarthria and anarthria Dysarthria and anarthria Disease Active 07-02 00:00: 00 Roscoe Brizuela Terminal ileitis (CMS/HCC) Terminal ileitis (CMS/HCC) Disease Active 01-11 00:00: 00 Roscoe Brizuela Non-pressu re chronic ulcer of other part of left foot limited to breakdown of skin Non-pressu re chronic ulcer of other part of left foot limited to breakdown of skin Problem [facility] 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 breakdown of skin 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 breakdown of skin Problem [employer] [employer] Type 2 diabetes mellitus with peripheral angiopathy Type 2 diabetes mellitus with diabetic peripheral angiopathy without gangrene, without long-term current use of insulin Problem [facility] Absence of toe Acquired absence of other right toe(s) Problem [employer] [id number] 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 to breakdown of skin Problem [facility] 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 Problem [facility] [facility] 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) 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) Disease Resolve d 2023-06 1-06 00:00: 00 2024-05-01 00:00:00 2024-05-01 10:07:13 Roscoe Brizuela Proteinuri a Proteinuri a Disease Resolve d 4-07 00:00: 00 2024-05-01 00:00:00 2024-05-01 10:07:13 Roscoe Brizuela Colitis Colitis Disease Resolve d 01-11 00:00: 00 2024-05-01 00:00:00 2024-05-01 10:07:13 Roscoe Brizuela Abdominal pain Abdominal pain Disease Resolve d 01-08 00:00: 00 2024-05-01 00:00:00 2024-05-01 10:07:13 Roscoe Brizuela Acute appendicit is Acute appendicit is Disease Resolve d 01-08 00:00: 00 2024-05-01 00:00:00 2024-05-01 10:07:13 Roscoe triana Chazmilton Brizuela Allergies, Adverse Reactions, Alerts Allergy Name Allergy Type Status Severity Reaction(s) Onset Date Inactive Date Treating Clinician Comments Source No Known Allergie s DA Active U 02-15 00:00: 00 [facility] levoflox acin DA Active IN VOMITING 12-19 00:00: 00 [facility] No Known Allergie s DA Active U 6 00:00: 00 [facility] Social History Social Habit Start Date Stop Date Quantity Comments Source Gender identity 2023-09-16 12:24:42 Identifies as male gender (finding) [facility] History of tobacco use Passive smoker [facility] Sexual orientation [facility] Sex Assigned [facility] Tobacco use and exposure 2024-05-01 00:00:00 2024-05-01 00:00:00 Smokeless tobacco non-user [facility] Alcoholic beverage intake 2024-05-01 00:00:00 2024-05-01 00:00:00 Lifetime non-drinker (finding) [facility] History of Social function 2024-05-01 00:00:2024-05-01 [facility] Smoking Status Start Date Stop Date Source Ex-smoker 2024-05-01 00:00:00 2024-05-01 00:00:[address] [facility] Never Smoker [facility] Medications Ordered Medication Name Filled Medication Name Start Date Stop Date Current Medication? Ordering Clinician Indication Dosage Frequency Signature (SIG) Comments Components Source sodium bicarbonate 325 MG tablet sodium bicarbonate 325 MG tablet 2023-06 10:16: 39 Yes 650mg Q.5D Take 650 mg by mouth in the morning and 650 mg in the evening. Roscoe Brizuela DULoxetine (Cymbalta) [address] capsule DULoxetine (Cymbalta) [address] capsule 2023-06 00:00: 00 05-01 23:59 :00 No 60mg QD Take 1 capsule by mouth 1 time each day. Do not crush or chew. Roscoe Brizuela FeroSul 325 (65 Fe) MG tablet FeroSul 325 (65 Fe) MG tablet 12-26 00:00: 00 Yes 325mg QD Take 325 mg by mouth in the morning. Take with meals. Roscoe Brizuela DULoxetine (Cymbalta) [address] capsule DULoxetine (Cymbalta) [address] capsule - 00:00: 00 05-01 00:00 :00 No See Instructio ns, TAKE 1 CAPSULE BY MOUTH ONCE DAILY, # 90 cap, 3 Refill(s), Pharmacy: [facility] [place], 171.45, cm, 07/12/23 10:18:00 [facility], Height, 81.364, kg, 07/12/23 10:18:00 [facility], Weight Roscoe Brizuela cloNIDine (Catapres) 0.1 MG tablet cloNIDine (Catapres) 0.1 MG tablet 07-12 00:00: 00 Yes Q.5D 2 times a day. Roscoe Brizuela allopurinol (Zyloprim) 300 MG tablet allopurinol (Zyloprim) 300 MG tablet 2021-06 0- 00:00: 00 Yes TAKE ONE (1) TABLET(S) BY MOUTH EVERY MORNING. Roscoe Brizuela omeprazole (PriLOSEC) [address] capsule omeprazole (PriLOSEC) [address] capsule 3-13 00:00: 00 Yes 40mg 40 mg = 1 cap, PO, Daily, 0 [facility] aspirin EC 81 MG EC tablet aspirin EC 81 MG EC tablet 08-23 00:00: 00 Yes 81mg 81 mg = 1 tab, PO, Daily, # 90 tab, 3 Refill(s) [facility] NON FORMULARY NON FORMULARY 08-23 00:00: 00 Yes basagalar [facility] clopidogrel (Plavix) 75 MG tablet clopidogrel (Plavix) 75 MG tablet 08-23 00:00: 00 Yes 75mg 75 mg = 1 tab, PO, Daily, # 30 tab, 0 Refill(s) [facility] benazepril (Lotensin) 40 MG tablet benazepril (Lotensin) 40 MG tablet 08-23 00:00: 00 Yes 40mg 40 mg = 1 tab, PO, Daily, # 30 tab, 0 Refill(s) [facility] Carvedilol 6.25 MG Carvedilol 6.25 MG No Carvedilol 6.25 MG Cefpodoxime Proxetil 200 MG Cefpodoxime Proxetil 200 MG No Cefpodoxim e Proxetil 200 MG amLODIPine Besylate 10 MG amLODIPine Besylate 10 MG No amLODIPine Besylate 10 MG Vital Signs Vital Name Observation Time Observation Value Comments S ource Systolic blood pressure 2024-05-01 10:16:00 137 mm[Hg] [facility] Diastolic blood pressure 2024-05-01 10:16:00 49 mm[Hg] [facility] Heart rate 2024-05-01 10:16:00 51 /min [facility] 2024-05-01 10:16:00 36.44 Christina [facility] Respiratory rate 2024-05-01 10:16:00 16 /min [facility] Body height 2024-05-01 10:16:00 170.2 cm [facility] Body weight 2024-05-01 10:16:00 81.647 kg [facility] BMI 2024-05-01 10:16:00 28.19 kg/m2 Clydealbert Ware [facility] Oxygen saturation in Arterial blood by Pulse oximetry 2024-05-01 10:16:00 99 /min [facility] Systolic blood pressure 2024-05-01 10:16:00 137 mm[Hg] [facility] Diastolic blood pressure 2024-05-01 10:16:00 49 mm[Hg] [facility] Heart rate 2024-05-01 10:16:00 51 /min [facility] [place] Body temperature 2024-05-01 10:16:00 36.44 Christina [facility] Respiratory rate 2024-05-01 10:16:00 16 /min [facility] Body height 2024-05-01 10:16:00 170.2 cm [facility] [place] Body weight 2024-05-01 10:16:00 81.647 kg [facility] [place] BMI 2024-05-01 10:16:00 28.19 kg/m2 [facility] [place] Oxygen saturation in Arterial blood by Pulse oximetry 2024-05-01 10:16:00 99 /min [facility] Her winn [facility] Encounters Start Date/Time End Date/Time Encounter Type Admission Type Attending [facility] Care Facility Care Department Encounter ID Source 2024 09:32:02 Outpatient Chandan Branch [facility] [id number] [facility] 2021-12-11 06:00:00 Inpatient Dorinda Rachel [facility] [id number] [facility] 2024-05-01 10:06:15 2024-05-01 10:36:22 Outpatient JULITO MAYBERRY DanieleOUT EOUT [id number] [facility] 2024-05-01 10:15:00 2024-05-01 10:30:00 Office Visit Julito Mayberry [id number] Roscoe Santoyoann [facility] 2024-05-01 10:15:00 2024-05-01 10:15:00 Outpatient LUIGI LUCIA [id number] Roscoe Santoyoann 2024-02-17 06:32:00 2024-02-18 14:01:00 Inpatient Dorinda Rachel HCAPM MEDI.01 [id number] [facility] 2024 00:00:00 2024 00:00:00 Office Visit- Est Pt.- Level 4 CLS CLS [id number] [facility] 2024 00:00:00 2024 00:00:00 (TEL) CLS CLS [id number] [facility] 2023-07-12 09:30:00 2023-07-12 09:30:00 Outpatient MHIE MHIE [id number] Roscoe triana Chaz 2022-10-20 10:30:00 2022-10-20 10:30:00 Outpatient MHIE MHIE [id number] Roscoe triana Chaz 2022-04-21 10:30:00 2022-04-21 10:30:00 Outpatient MHIE MHIE [id number] Roscoe triana Chaz 2021-12-18 04:44:00 2021-12-18 04:44:00 Outpatient EL DabDorinda hankins [facility]G [id number] [facility] 2021-12-18 04:44:00 2021-12-18 04:44:00 Outpatient Dorinda Rachel HCAWU HCAWU [id number] [facility] 2021-10-30 05:03:00 2021-10-30 05:03:00 Outpatient EL Dorinda Li HCAWU HCAWU [id number] [facility] 2021-10-30 05:03:00 2021-10-30 05:03:00 Outpatient EL Dabaghi Salim [facility] [id number] [facility] 2021-10-20 11:45:00 2021-10-20 11:45:00 Outpatient MHIE MHIE [id number] Charismaramakrishna triana Chaz 2021-10-02 04:46:00 2021-10-02 04:46:00 Outpatient EL Dabagberto Salim [facility]G [id number] [facility] 2021-09-02 10:15:00 2021-09-02 10:15:00 Outpatient MHIE MHIE [id number] Memramakrishna triana [place] 2021-07-22 10:30:00 2021-07-22 10:30:00 Outpatient MHIE MHIE [id number] Memramakrishna triana [place] 2020-09-29 09:00:00 2020-09-29 09:00:00 Outpatient MHIE MHIE [id number] Memoria kamilah SantoyoChaz 2020-09-29 09:00:00 2020-09-29 09:00:00 Outpatient MHIE MHIE [id number] Memramakrishna triana [place] 2020-02-26 10:00:00 2020-02-26 10:00:00 Outpatient MHIE MHIE [id number] Memramakrishna triana Chaz 2020-01-15 08:45:00 2020-01-15 08:45:00 Outpatient MHIE MHIE [id number] Memramakrishna triana Chaz 2019-10-03 10:00:00 2019-10-03 10:00:00 Outpatient MHIE MHIE [id number] Memoria kamilah Chaz 2019-09-12 09:30:00 2019-09-12 09:30:00 Outpatient MHIE MHIE [id number] Roscoe triana [place] 2019-04-25 09:15:00 2019-04-25 09:15:00 Outpatient MHIE MHIE [id number] Roscoe triana Chaz 2018-07-26 09:00:00 2018-07-26 09:00:00 Outpatient MHIE MHIE [id number] Memramakrishna triana Chaz 2018-06-05 09:15:00 2018-06-05 09:15:00 Outpatient MHIE MHIE [id number] Memramakrishna triana Chaz 2018-01-16 09:15:00 2018-01-16 09:15:00 Outpatient MHIE MHIE [id number] Memramakrishna triana Chaz 2017-08-23 09:45:00 2017-08-23 09:45:00 Outpatient MHIE MHIE [id number] Charismaramakrishna kamilah Ware Results Test Description Test Time Test Comments Results Result Co mments Source CBC W/AUTO [id number] 04:17:00* Test Item Value Reference Range Interpretation Comme nts WHITE BLOOD CELL (test code = WBC) 10.1 K/mm3 3.5-11.0 N RED BLOOD CELL (test code = RBC) 3.10 M/mm3 4.70-6.10 L HEMOGLOBIN (test code = HGB) 9.5 G/DL 12.3-15.9 L HEMATOCRIT (test code = HCT) 29.2 % 35.8-46.7 L MEAN CELL VOLUME (test code = MCV) 94.2 Fl 86.3-98.9 N MEAN CELL HGB (test code = MCH) 30.6 pg 28.9-34.4 N MEAN CELL HGB CONCETRATION (test code = MCHC) 32.5 G/DL 32.1-34.5 N RED CELL DISTRIBUTION WIDTH (test code = RDW) 14.3 SD 11.5-14.5 N PLATELET COUNT (test code = PLT) 263 K/mm3 150-450 N MEAN PLATELET VOLUME (test c ode = MPV) 10.90 fL 7.0-9.6 H NEUTROPHIL % (test code = NT%) 84.3 % 40-76 H IMMATURE GRANULOCYTE % (test code = IG%) 0.5 % 0.0-5.0 N LYMPHOCYTE % (test code = LY%) 8.4 % 20.5-51.1 L MONOCYTE % (test code = MO%) 5.9 % 1.7-9.3 N EOSINOPHIL % (test code = EO%) 0.5 % 0.0-6.0 N BASOPHIL % (test code = BA%) 0.4 % 0.0-2.0 N NUCLEATED RBC % (test code = NRBC%) 0.0 /100WBC% 0.0-1.0 N NEUTROPHIL # (test code = NT#) 8.5 K/mm3 1.8-7.6 H IMMATURE GRANULOCYTE # (test code = IG#) 0.05 x10 3/uL 0.00-0.03 H LYMPHOCYTE # (test code = LY#) 0.9 K/mm3 0.6-3.0 N MONOCYTE # (test code = MO#) 0.6 K/mm3 0.2-1.5 N EOSINOPHIL # (test code = EO#) 0.1 K/mm3 0.0-0.4 N BASOPHIL # (test code = BA#) 0.0 K/mm3 0.0-0.2 N NUCLEATED RBC # (test code = NRBC#) 0.0 K/mm3 0.00-0.01 N COAGULATION TIME [id number] 11:37:00* Test Item Value Reference Range Interpretation Comme nts COAGULATION TIME ACTIVATED ( test code = ACT) 346 SEC 110-182 H COMPREHENSIVE METABOLIC [id number] 07:20:00* Test Item Value Reference Range Interpretation Comme nts SODIUM (test code = NA) 141 mmol/L 136-145 N POTASSIUM (test code = K) 5.7 mmol/L 3.4-5.0 H CHLORIDE (test code = CL) 107 mmol/L 98-107 N CARBON DIOXIDE (test code = CO2) 23 mmol/L 21-32 N ANION GAP (test code = GAP) 11 GAP calc 4-15 N GLUCOSE (test code = GLU) 173 MG/DL 70-110 H BLOOD UREA NITROGEN (test code = BUN) 45 MG/DL 7-18 H GLOMERULAR FILTRATION RATE (test code = GFR) 38 estGFR >60 L The Glomerular Filtration Rate is a calculated parameterbased on serum Creatinine, patient age and sex. GFR valuesless than 60 mL/min/1.73 square meters are indicative ofChronic Kidney Disease. Values less than 15 mL/min/1.73square meters indicate Kidney failure. The calculation forGFR is based on the CKD-EPI (2020) calculation. This formulais race indifferent and is the recommended formula for GFRby the National Kidney Foundation for Adults.The GFR will not calculate if the sex is unknown or if thepatient's age is <18 years. CREATININE (test code = CREAT) 1.9 MG/DL 0.6-1.0 H TOTAL PROTEIN (test code = PROT) 8.0 G/DL 6.4-8.2 N ALBUMIN (test code = ALB) 3.4 G/DL 3.4-5.0 N GLOBULIN (test code = GLOB) 4.6 GM/dL ALBUMIN/GLOBULIN RATIO (test code = A/G) 0.7 RATIO 1.2-2.2 L CALCIUM (test code = CA) 9.3 MG/DL 8.5-10.1 N BILIRUBIN TOTAL (test code = BILT) 0.5 MG/DL 0.0-1.0 N SGOT/AST (test code = AST) 26 Unit/L 15-37 N SGPT/ALT (test code = ALT) 26 Unit/L 30-65 L ALKALINE PHOSPHATASE TOTAL (test code = ALKP) 142 Unit/L 50-136 H LIPID PROFILE (CORONARY RISK)2024-02-17 07:20:00* Test Item Value Reference Range Interpretation Comme nts TRIGLYCERIDES (test code = TRIG) 38 MG/DL 0-150 N CHOLESTEROL (test code = CHOL) 114 MG/DL 133-200 L CHOLESTEROL/HDL RATIO (test code = CHOLHDL) 2.43 RATIO See_Comment RISK ASSOC IATED WITH CHOL/HDL RATIOS: RISK MALE FEMALE1/2 AVERAGE 3.43 3.27AVERAGE 4.97 4.442X AVERAGE 9.55 7.053X AVERAGE 23.39 11.04 NOTE THAT THE REFERENCE VALUE IS RELATED TO RISK LEVELS ASRECOMMENDED BY THE [facility]. [Automated message] The system which generated this result transmitted reference range: 0-. The reference range was not used to interpret this result as normal/abnormal. HDL CHOLESTEROL (test code = HDL) 47 MG/DL See_Comment L [Kybernesis] The system which generated this result transmitted reference range: 60-. The reference range was not used to interpret this result as normal/abnormal. NON-HDL CHOLESTEROL (test code = NHDL) 67 mg/dL <130 LIPOPROTEIN LDL (test code = LDL) 55 MG/DL 0-129 N LDL/HDL (test code = LDL/HDL) 1.17 Ratio See_Comment L [Kybernesis] The system which generated this result transmitted reference range: 1.48-3.22 Avg. The reference range was not used to interpret this result as normal/abnormal. [id number] 07:20:00* Test Item Value Reference Range Interpretation Comme nts MAGNESIUM (test code = MAG) 2.5 MG/DL 1.8-2.4 H PROTHROMBIN [id number] 07:11:00* Test Item Value Reference Range Interpretation Comme nts PT PATIENT (test code = PTP) 10.5 SECONDS 9.3-12.9 N INTERNATIONAL NORMAL RATIO (test code = INR) 0.95 INR Unit 0.8-1.2 N TARGET INR BY INDICATION Indication INR1. Prophylaxis of venous thrombosis 2.0 - 3.0 (orthopedic surgery), Prophylaxis of venous thrombosis (other than high-risk surgery), Treatment of Deep Vein Thrombosis/Pulmonary Embolism, Prevention of systemic embolism - Tissue heart valves, Acute Myocardial Infarction (to prevent systemic embolism), Valvular heart disease, Acute Myocardial Infarction (to prevent systemic embolism), Valvular heart disease, Atrial Fibrillation, Bileaflet mechanical valve in aortic position.2. Mechanical prosthetic valves (high risk), 2.5 - 3.5 Presence of Lupus Anticoagulant or Antiphospholipid Antibodies, Prevention of systemic embolism - Acute Myocardial Infarction (to prevent recurrent infarct). CBC W/AUTO [id number] 07:04:00* Test Item Value Reference Range Interpretation Comme nts WHITE BLOOD CELL (test code = WBC) 8.8 K/mm3 3.5-11.0 N RED BLOOD CELL (test code = RBC) 3.31 M/mm3 4.70-6.10 L HEMOGLOBIN (test code = HGB) 10.1 G/DL 12.3-15.9 L HEMATOCRIT (test code = HCT) 31.2 % 35.8-46.7 L MEAN CELL VOLUME (test code = MCV) 94.3 Fl 86.3-98.9 N MEAN CELL HGB (test code = MCH) 30.5 pg 28.9-34.4 N MEAN CELL HGB CONCETRATION (test code = MCHC) 32.4 G/DL 32.1-34.5 N RED CELL DISTRIBUTION WIDTH (test code = RDW) 14.1 SD 11.5-14.5 N PLATELET COUNT (test code = PLT) 313 K/mm3 150-450 N MEAN PLATELET VOLUME (test c ode = MPV) 10.70 fL 7.0-9.6 H NEUTROPHIL % (test code = NT%) 66.3 % 40-76 N IMMATURE GRANULOCYTE % (test code = IG%) 0.8 % 0.0-5.0 N LYMPHOCYTE % (test code = LY%) 21.5 % 20.5-51.1 N MONOCYTE % (test code = MO%) 8.7 % 1.7-9.3 N EOSINOPHIL % (test code = EO%) 2.0 % 0.0-6.0 N BASOPHIL % (test code = BA%) 0.7 % 0.0-2.0 N NUCLEATED RBC % (test code = NRBC%) 0.0 /100WBC% 0.0-1.0 N NEUTROPHIL # (test code = NT#) 5.8 K/mm3 1.8-7.6 N IMMATURE GRANULOCYTE # (test code = IG#) 0.07 x10 3/uL 0.00-0.03 H LYMPHOCYTE # (test code = LY#) 1.9 K/mm3 0.6-3.0 N MONOCYTE # (test code = MO#) 0.8 K/mm3 0.2-1.5 N EOSINOPHIL # (test code = EO#) 0.2 K/mm3 0.0-0.4 N BASOPHIL # (test code = BA#) 0.1 K/mm3 0.0-0.2 N NUCLEATED RBC # (test code = NRBC#) 0.0 K/mm3 0.00-0.01 N [id number] 09:48:00* Test Item Value Reference Range Interpretation Comme nts ACT-ISTAT (test code = ACTI) 208 SEC 74-137 H BASIC METABOLIC [id number] 05:47:00* Test Item Value Reference Range Interpretation Comme nts SODIUM (test code = NA) 141 MMOL/L 137-145 N POTASSIUM (test code = K) 4.2 MMOL/L 3.5-5.1 N CHLORIDE (test code = CL) 109 MMOL/L 98-107 H CARBON DIOXIDE (test code = CO2) 23 MMOL/L 22-30 N GLUCOSE (test code = GLU) 171 MG/DL 74-106 H BLOOD UREA NITROGEN (test code = BUN) 41 MG/DL 9-20 H GLOMERULAR FILTRATION RATE (test code = GFR) 41 Reporting units: ml/min/1.73 m2 (Modified MDRD Formula)Reference Range: > or = 60 ml/min/1.73 m2 CREATININE (test code = CREAT) 1.70 MG/DL 0.66-1.25 H CALCIUM (test code = CA) 9.4 MG/DL 8.4-10.2 N LIPID PROFILE (CORONARY RISK)2021-12-18 05:47:00* Test Item Value Reference Range Interpretation Comme nts TRIGLYCERIDES (test code = TRIG) 77 MG/DL 150-199 L TRIGLYCERIDES REFERENCE RANGE:Normal: <150 mg/dLBorderline High: 150-199 mg/dLHigh: 200-499 mg/dLVery High: >=500 mg/dL CHOLESTEROL (test code = CHOL) 156 MG/DL <200 HDL CHOLESTEROL (test code = HDL) 41 MG/DL 40-59 N LIPOPROTEIN LDL (test code = LDL) 72 MG/DL 0-99 N OPTIMAL......... <100 mg/dLNEAR OPTIMAL/ABOVE OPTIMAL.........100-12 9 mg/dL BORDERLINE HIGH.........130-159 mg/dL HIGH.........160-189 mg/dL VERY HIGH.........>/= 190 mg/dL [id number] 05:47:00* Test Item Value Reference Range Interpretation Comme nts MAGNESIUM (test code = MAG) 2.6 MG/DL 1.6-2.3 H PROTHROMBIN [id number] 05:35:00* Test Item Value Reference Range Interpretation Comme nts PROTHROMBIN TIME PATIENT (test code = PTP) 10.5 SECONDS 9.4-12.7 N INTERNATIONAL NORMAL RATIO (test code = INR) 0.9 0.86-1.14 N The INR is to be used only for monitoring oral anticoagulanttherap y. INDICATION INR VALUE -------1. Prophylaxis, deep venous thrombosis, including high risk surgery. 2.0 - 3.0 2. Prophylaxis, deep venous thrombosis, hip surgery, treatment for deep venous thrombosis or pulmonary prevention of systemic embolism in patients with valvular heart disease, atrial fibrillation, tissue heart valve, or acute myocardial infarction. 2.0 - 3.0 3. Mechanical prosthesis heart valves, recurrent systemic embolism. 3.0 - 4.5 PTT [id number] 05:35:00* Test Item Value Reference Range Interpretation Comme nts PTT ACTIVATED (test code = APTT) 35.8 SECONDS 26.2-35.4 H CBC W/AUTO [id number] 05:24:00* Test Item Value Reference Range Interpretation Comme nts WHITE BLOOD CELL (test code = WBC) 6.2 K/MM3 3.8-9.8 N RED BLOOD CELL (test code = RBC) 3.16 M/MM3 3.95-5.67 L HEMOGLOBIN (test code = HGB) 9.6 G/DL 12.4-16.7 L HEMATOCRIT (test code = HCT) 28.8 % 35.9-49.5 L MEAN CELL VOLUME (test code = MCV) 91 fL 81.7-96.1 N MEAN CELL HGB (test code = MCH) 30.4 pg 27.6-33.2 N MEAN CELL HGB CONCETRATION (test code = MCHC) 33.3 % 32.9-35.5 N RED CELL DISTRIBUTION WIDTH (test code = RDW) 12.8 % 12.1-15.2 N PLATELET COUNT (test code = PLT) 288 K/MM3 129-368 N MEAN PLATELET VOLUME (test c ode = MPV) 10.6 fl 7.4-10.4 H NEUTROPHIL % (test code = NT%) 54.9 % 43-75 N IMMATURE GRANULOCYTE % (test code = IG%) 0.3 % 0.0-2.0 N LYMPHOCYTE % (test code = LY%) 33.8 % 14-44 N MONOCYTE % (test code = MO%) 7.9 % 4-13 N EOSINOPHIL % (test code = EO%) 2.3 % 0-6 N BASOPHIL % (test code = BA%) 0.8 % 0-2 N NUCLEATED RBC % (test code = NRBC%) 0.0 % 0-1.0 N NEUTROPHIL # (test code = NT#) 3.42 K/mm3 2.0-7.6 N IMMATURE GRANULOCYTE # (test code = IG#) 0.02 x10 3/uL 0-0.03 N LYMPHOCYTE # (test code = LY#) 2.10 K/mm3 1.0-3.8 N MONOCYTE # (test code = MO#) 0.49 K/mm3 0.1-0.8 N EOSINOPHIL # (test code = EO#) 0.14 K/mm3 0.0-0.2 N BASOPHIL # (test code = BA#) 0.05 K/mm3 0.0-0.2 N NUCLEATED RBC # (test code = NRBC#) 0.00 K/mm3 0.0-0.1 N COVID 19 Asymptomatic IH [id number] 05:12:00* Test Item Value Reference Range Interpretation Comme nts COVID 19 Asymptomatic IH AG (test code = COVNONPUIAG) NEGATIVE Negative "Negative result s from patients with symptom onset beyondfive days, should be treated as presumptive, andconfirmation with a molecular assay, if necessary forpatient management may be performed. Negative results do notrule out COVID-19 and should not be used as the sole basisfor treatment or patient management decisions, includinginfection control decisions. Negative results should beconsidered in the context of a patients recent exposures,history, and the presence of clinical signs and symptomsconsistent with COVID-19.This test detects both viable andnon-viable SARS-CoV and SARS CoV-2.Test performance dependson the amount of virus (antigen) in the sample." [id number] 12:19:00* Test Item Value Reference Range Interpretation Comme nts ACT-ISTAT (test code = ACTI) 178 SEC 74-137 H [id number] 09:14:00* Test Item Value Reference Range Interpretation Comme nts ACT-ISTAT (test code = ACTI) 249 SEC 74-137 H BASIC METABOLIC [id number] 06:16:00* Test Item Value Reference Range Interpretation Comme nts SODIUM (test code = NA) 141 MMOL/L 137-145 N POTASSIUM (test code = K) 4.3 MMOL/L 3.5-5.1 N CHLORIDE (test code = CL) 107 MMOL/L 98-107 N CARBON DIOXIDE (test code = CO2) 27 MMOL/L 22-30 N GLUCOSE (test code = GLU) 176 MG/DL 74-106 H BLOOD UREA NITROGEN (test code = BUN) 41 MG/DL 9-20 H GLOMERULAR FILTRATION RATE (test code = GFR) 38 Reporting units: ml/min/1.73 m2 (Modified MDRD Formula)Reference Range: > or = 60 ml/min/1.73 m2 CREATININE (test code = CREAT) 1.80 MG/DL 0.66-1.25 H CALCIUM (test code = CA) 9.2 MG/DL 8.4-10.2 N LIPID PROFILE (CORONARY RISK)2021-10-30 06:16:00* Test Item Value Reference Range Interpretation Comme nts TRIGLYCERIDES (test code = TRIG) 52 MG/DL 150-199 L TRIGLYCERIDES REFERENCE RANGE:Normal: <150 mg/dLBorderline High: 150-199 mg/dLHigh: 200-499 mg/dLVery High: >=500 mg/dL CHOLESTEROL (test code = CHOL) 126 MG/DL <200 HDL CHOLESTEROL (test code = HDL) 37 MG/DL 40-59 L LIPOPROTEIN LDL (test code = LDL) 61 MG/DL 0-99 N OPTIMAL......... <100 mg/dLNEAR OPTIMAL/ABOVE OPTIMAL.........100-12 9 mg/dL BORDERLINE HIGH.........130-159 mg/dL HIGH.........160-189 mg/dL VERY HIGH.........>/= 190 mg/dL [id number] 06:16:00* Test Item Value Reference Range Interpretation Comme nts MAGNESIUM (test code = MAG) 2.8 MG/DL 1.6-2.3 H COVID 19 Asymptomatic IH [id number] 06:14:00* Test Item Value Reference Range Interpretation Comme nts COVID 19 Asymptomatic IH AG (test code = COVNONPUIAG) NEGATIVE Negative "Negative result s from patients with symptom onset beyondfive days, should be treated as presumptive, andconfirmation with a molecular assay, if necessary forpatient management may be performed. Negative results do notrule out COVID-19 and should not be used as the sole basisfor treatment or patient management decisions, includinginfection control decisions. Negative results should beconsidered in the context of a patients recent exposures,history, and the presence of clinical signs and symptomsconsistent with COVID-19.This test detects both viable andnon-viable SARS-CoV and SARS CoV-2.Test performance dependson the amount of virus (antigen) in the sample." PROTHROMBIN [id number] 05:59:00* Test Item Value Reference Range Interpretation Comme nts PROTHROMBIN TIME PATIENT (test code = PTP) 10.0 SECONDS 9.4-12.7 N INTERNATIONAL NORMAL RATIO (test code = INR) 0.9 0.86-1.14 N The INR is to be used only for monitoring oral anticoagulanttherap y. INDICATION INR VALUE -------1. Prophylaxis, deep venous thrombosis, including high risk surgery. 2.0 - 3.0 2. Prophylaxis, deep venous thrombosis, hip surgery, treatment for deep venous thrombosis or pulmonary prevention of systemic embolism in patients with valvular heart disease, atrial fibrillation, tissue heart valve, or acute myocardial infarction. 2.0 - 3.0 3. Mechanical prosthesis heart valves, recurrent systemic embolism. 3.0 - 4.5 PTT [id number] 05:59:00* Test Item Value Reference Range Interpretation Comme nts PTT ACTIVATED (test code = APTT) 36.6 SECONDS 26.2-35.4 H CBC W/AUTO [id number] 05:47:00* Test Item Value Reference Range Interpretation Comme nts WHITE BLOOD CELL (test code = WBC) 6.6 K/MM3 3.8-9.8 N RED BLOOD CELL (test code = RBC) 3.47 M/MM3 3.95-5.67 L HEMOGLOBIN (test code = HGB) 10.3 G/DL 12.4-16.7 L HEMATOCRIT (test code = HCT) 32.1 % 35.9-49.5 L MEAN CELL VOLUME (test code = MCV) 93 fL 81.7-96.1 N MEAN CELL HGB (test code = MCH) 29.7 pg 27.6-33.2 N MEAN CELL HGB CONCETRATION (test code = MCHC) 32.1 % 32.9-35.5 L RED CELL DISTRIBUTION WIDTH (test code = RDW) 13.1 % 12.1-15.2 N PLATELET COUNT (test code = PLT) 281 K/MM3 129-368 N MEAN PLATELET VOLUME (test c ode = MPV) 10.6 fl 7.4-10.4 H NEUTROPHIL % (test code = NT%) 48.9 % 43-75 N IMMATURE GRANULOCYTE % (test code = IG%) 0.8 % 0.0-2.0 N LYMPHOCYTE % (test code = LY%) 35.8 % 14-44 N MONOCYTE % (test code = MO%) 10.2 % 4-13 N EOSINOPHIL % (test code = EO%) 2.9 % 0-6 N BASOPHIL % (test code = BA%) 1.4 % 0-2 N NUCLEATED RBC % (test code = NRBC%) 0.0 % 0-1.0 N NEUTROPHIL # (test code = NT#) 3.23 K/mm3 2.0-7.6 N IMMATURE GRANULOCYTE # (test code = IG#) 0.05 x10 3/uL 0-0.03 H LYMPHOCYTE # (test code = LY#) 2.36 K/mm3 1.0-3.8 N MONOCYTE # (test code = MO#) 0.67 K/mm3 0.1-0.8 N EOSINOPHIL # (test code = EO#) 0.19 K/mm3 0.0-0.2 N BASOPHIL # (test code = BA#) 0.09 K/mm3 0.0-0.2 N NUCLEATED RBC # (test code = NRBC#) 0.00 K/mm3 0.0-0.1 N GLUCOSE BEDSIDE [id number] 11:48:00* Test Item Value Reference Range Interpretation Comme [facility] GLUCOSE BEDSIDE TESTING (roxanna t code = GLUBED) 144 MG/DL 60-99 H [id number] 10:52:00* Test Item Value Reference Range Interpretation Comme nts ACT-ISTAT (test code = ACTI) 279 SEC 74-137 H BASIC METABOLIC [id number] 07:38:00* Test Item Value Reference Range Interpretation Comme nts SODIUM (test code = NA) 143 MMOL/L 137-145 N POTASSIUM (test code = K) 4.6 MMOL/L 3.5-5.1 N CHLORIDE (test code = CL) 109 MMOL/L 98-107 H CARBON DIOXIDE (test code = CO2) 26 MMOL/L 22-30 N ANION GAP (test code = GAP) 13 MMOL/L 14-24 L GLUCOSE (test code = GLU) 204 MG/DL 74-106 H BLOOD UREA NITROGEN (test code = BUN) 39 MG/DL 9-20 H GLOMERULAR FILTRATION RATE (test code = GFR) 38 Reporting units: ml/min/1.73 m2 (Modified MDRD Formula)Reference Range: > or = 60 ml/min/1.73 m2 CREATININE (test code = CREAT) 1.80 MG/DL 0.66-1.25 H CALCIUM (test code = CA) 9.4 MG/DL 8.4-10.2 N LIPID PROFILE (CORONARY RISK)2021-10-02 07:38:00* Test Item Value Reference Range Interpretation Comme nts TRIGLYCERIDES (test code = TRIG) 80 MG/DL 150-199 L TRIGLYCERIDES REFERENCE RANGE:Normal: <150 mg/dLBorderline High: 150-199 mg/dLHigh: 200-499 mg/dLVery High: >=500 mg/dL CHOLESTEROL (test code = CHOL) 150 MG/DL <200 HDL CHOLESTEROL (test code = HDL) 41 MG/DL 40-59 N LIPOPROTEIN LDL (test code = LDL) 78 MG/DL 0-99 N OPTIMAL......... <100 mg/dLNEAR OPTIMAL/ABOVE OPTIMAL.........100-12 9 mg/dL BORDERLINE HIGH.........130-159 mg/dL HIGH.........160-189 mg/dL VERY HIGH.........>/= 190 mg/dL [id number] 07:38:00* Test Item Value Reference Range Interpretation Comme nts MAGNESIUM (test code = MAG) 2.6 MG/DL 1.6-2.3 H PROTHROMBIN [id number] 07:13:00* Test Item Value Reference Range Interpretation Comme nts PROTHROMBIN TIME PATIENT (test code = PTP) 9.6 SECONDS 9.4-12.7 N INTERNATIONAL NORMAL RATIO (test code = INR) 0.9 0.86-1.14 N The INR is to be used only for monitoring oral anticoagulanttherap y. INDICATION INR VALUE -------1. Prophylaxis, deep venous thrombosis, including high risk surgery. 2.0 - 3.0 2. Prophylaxis, deep venous thrombosis, hip surgery, treatment for deep venous thrombosis or pulmonary prevention of systemic embolism in patients with valvular heart disease, atrial fibrillation, tissue heart valve, or acute myocardial infarction. 2.0 - 3.0 3. Mechanical prosthesis heart valves, recurrent systemic embolism. 3.0 - 4.5 PTT [id number] 07:13:00* Test Item Value Reference Range Interpretation Comme nts PTT ACTIVATED (test code = APTT) 36.1 SECONDS 26.2-35.4 H CBC W/AUTO [id number] 07:03:00* Test Item Value Reference Range Interpretation Comme nts WHITE BLOOD CELL (test code = WBC) 6.1 K/MM3 3.8-9.8 N RED BLOOD CELL (test code = RBC) 3.54 M/MM3 3.95-5.67 L HEMOGLOBIN (test code = HGB) 10.6 G/DL 12.4-16.7 L HEMATOCRIT (test code = HCT) 32.5 % 35.9-49.5 L MEAN CELL VOLUME (test code = MCV) 92 fL 81.7-96.1 N MEAN CELL HGB (test code = MCH) 29.9 pg 27.6-33.2 N MEAN CELL HGB CONCETRATION (test code = MCHC) 32.6 % 32.9-35.5 L RED CELL DISTRIBUTION WIDTH (test code = RDW) 13.1 % 12.1-15.2 N PLATELET COUNT (test code = PLT) 304 K/MM3 129-368 N MEAN PLATELET VOLUME (test c ode = MPV) 10.2 fl 7.4-10.4 N NEUTROPHIL % (test code = NT%) 49.2 % 43-75 N IMMATURE GRANULOCYTE % (test code = IG%) 0.5 % 0.0-2.0 N LYMPHOCYTE % (test code = LY%) 37.6 % 14-44 N MONOCYTE % (test code = MO%) 9.0 % 4-13 N EOSINOPHIL % (test code = EO%) 2.6 % 0-6 N BASOPHIL % (test code = BA%) 1.1 % 0-2 N NUCLEATED RBC % (test code = NRBC%) 0.0 % 0-1.0 N NEUTROPHIL # (test code = NT#) 3.02 K/mm3 2.0-7.6 N IMMATURE GRANULOCYTE # (test code = IG#) 0.03 x10 3/uL 0-0.03 N LYMPHOCYTE # (test code = LY#) 2.31 K/mm3 1.0-3.8 N MONOCYTE # (test code = MO#) 0.55 K/mm3 0.1-0.8 N EOSINOPHIL # (test code = EO#) 0.16 K/mm3 0.0-0.2 N BASOPHIL # (test code = BA#) 0.07 K/mm3 0.0-0.2 N NUCLEATED RBC # (test code = NRBC#) 0.00 K/mm3 0.0-0.1 N COVID 19 Asymptomatic IH [id number] 05:42:00* Test Item Value Reference Range Interpretation Comme nts COVID 19 Asymptomatic IH AG (test code = COVNONPUIAG) NEGATIVE Negative "Negative result s from patients with symptom onset beyondfive days, should be treated as presumptive, andconfirmation with a molecular assay, if necessary forpatient management may be performed. Negative results do notrule out COVID-19 and should not be used as the sole basisfor treatment or patient management decisions, includinginfection control decisions. Negative results should beconsidered in the context of a patients recent exposures,history, and the presence of clinical signs and symptomsconsistent with COVID-19.This test detects both viable andnon-viable SARS-CoV and SARS CoV-2.Test performance dependson the amount of virus (antigen) in the sample." Notes Date/Time Note Provider Source 2024-05-01 10:35:42 [facility]2024-11-06 10:35:42* Julito Mayberry MD - 05/01/2024 10:15 AM PHYSICIAN [facility] History of Present Illness Cerebrovascular Accident Lost another toe to PVD. On Plavix. No stroke symptoms. PBA stable on Cymbalta. Recent labs reviewed Allergies as of 05/01/2024 (No Known Allergies) has a current medication list which includes the following prescription(s): allopurinol, amlodipine besylate, aspirin ec, atorvastatin calcium, benazepril, carvedilol, clonidine, clopidogrel, ferosul, NON FORMULARY, omeprazole, sodium bicarbonate, and duloxetine. Vitals:05/01/24 1016 BP: (!) 137/49 Pulse: 51 Resp: 16 Temp: 36.4 ?C (97.6 ?F) SpO2: 99% Neurological Exam Mental Status Awake and alert. Speech is normal. Cranial NervesCN II: Visual acuity is normal. CN III, IV, : Extraocular movements intact bilaterally. Pupils equal round and reactive to light bilaterally. CN VII: Full and symmetric facial movement. CN IX, X: Palate elevates symmetrically CN XI: Shoulder shrug strength is normal. CN XII: Tongue midline without atrophy or fasciculations. MotorStrength is 5/5 throughout all four extremities. SensoryTemperature abnormality: Decreased distally. Vibration abnormality: Decreased distally. ReflexesDeep tendon reflexes: Suppressed but symmetric. Coordination Mild ataxia on the right. Gait Ambulates with a rolling walker. Results for orders placed or performed in visit on 07/22/21 Acetylcholine Receptor Binding Antibody Collection Time: 07/26/21 9:29 AM Result Value Ref Range Acetylcholine Receptor Binding Antibody <0.30 mmol/L Acetylcholine Receptor Blocking Antibody Collection Time: 07/26/21 9:29 AM Result Value Ref Range Acetylcholine Receptor Blocking Antibody <15 <15 % of inhibition Complete Blood Count w/Diff and Platelet Collection Time: 07/26/21 9:29 AM Result Value Ref Range Plt Count 276 140 - 400 K/ul Basos % 1.2 % MPV 11.9 7.5 - 12.5 fL WBC 6.9 3.8 - 10.8 K/ul Segs # 4451 1500 - 7800 Cells/uL RBC 3.95 (L) 4.20 - 5.80 M/CMM Lymphocytes # 1753 850 - 3900 Cells/uL Hgb 11.5 (L) 13.2 - 17.1 g/dL Monocytes # 421 200 - 950 Cells/uL Hct 35.6 (L) 38.5 - 50.0 % Eosinophils # 193 15 - 500 Cells/uL MCV 90.1 80.0 - 100.0 fL Basophils # 83 0 - 200 Cells/uL MCH 29.1 27.0 - 33.0 pg Segs % 64.5 % MCHC 32.3 32.0 - 36.0 g/dL Lymphs % 25.4 % Monocytes 6.1 % RDW 12.1 11.0 - 15.0 % Eos % 2.8 % Comprehensive Metabolic Panel Collection Time: 07/26/21 9:29 AM Result Value Ref Range Albumin/Globulin Ratio 1.4 1.0 - 2.5 (CALC) Creatinine Lvl 1.37 (H) 0.70 - 1.25 mg/dL Total Protein 7.2 6.1 - 8.1 g/dL eGFR Non- Amer 55 (L) > OR = 60 mL/min/1.73m2 Albumin Lvl 4.2 3.6 - 5.1 g/dL eGFR Amer 63 > OR = 60 mL/min/1.73m2 Bilirubin Total 0.7 0.2 - 1.2 mg/dL B/C Ratio 20 6 - 22 (CALC) Alkaline Phosphatase 80 35 - 144 unit/L Sodium Lvl 140 135 - 146 mMol/L AST 16 10 - 35 unit/L Potassium Lvl 4.4 3.5 - 5.3 mMol/L ALT 21 9 - 46 unit/L Chloride Lvl 106 98 - 110 mMol/L CO2 Lvl 24 20 - 32 mMol/L Glucose Lvl 285 (H) 65 - 99 mg/dL Globulin 3.0 1.9 - 3.7 g/dL Calcium Lvl 9.4 8.6 - 10.3 mg/dL BUN 28 (H) 7 - 25 mg/dL Copper Level Collection Time: 07/26/21 9:29 AM Result Value Ref Range Copper Lvl 103 70 - 175 mcg/dl Sedimentation Rate Collection Time: 07/26/21 9:29 AM Result Value Ref Range Sed Rate 22 (H) < OR = 20 mm/hr Thyroid Stimulating Hormone Collection Time: 07/26/21 9:29 AM Result Value Ref Range TSH 1.86 0.40 - 4.50 mIU/L Vitamin B1 Level Collection Time: 07/26/21 9:29 AM Result Value Ref Range Vitamin B1 97 78 - 185 mmol/L Vitamin B12 Level Collection Time: 07/26/21 9:29 AM Result Value Ref Range Vitamin B12 Lvl 475 200 - 1100 pg/mL Lipid Panel w/calculated LDL Collection Time: 07/26/21 9:29 AM Result Value Ref Range Non HDL Chol 93 <130 mg/dL Cholesterol 137 <200 mg/dL HDL 44 > OR = 40 mg/dL Triglycerides 72 <150 mg/dL LDL (Calculated) 78 mg/dL Chol/HDL Ratio 3.1 <5.0 (CALC) No MRI head results found for the past 12 months Assessment & PlanDiagnoses and all orders for this visit: 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 Do not crush or chew. Stable, continue present medications. [facility]2024-11-06 10:35:42 [facility] Diagnosis Cerebrovascular accident (CV A) due to thrombosis of vertebral artery, unspecified blood vessel laterality (HCC) - Primary Pseudobulbar affect [id number] 10:35:42 [id number] 10:23:00 [facility] Hospitalist Discharge Summary REPORT#:[id number] REPORT STATUS: Signed REPORT INITIALIZATION DATE:02/18/24 TIME:1023 PATIENT: MICHAEL GAINES JR UNIT #: [id number] ROOM/BED: [place] [id number] : [birth year] AGE: 64 SEX: M ATTEND: Dorinda Li MD Cardiology ADM AUTHOR: Abrahan Ballard MD REPT SERVICE DT/TIME: 02/18/24 1023 * ALL edits or amendments must be made on the electronic/computer document * General Information Discharge date: 02/18/24 Discharge diagnosis: PAD Status post laser atherectomy Hypertension Hyperlipidemia DM CKD stage 2 Hospital course: 64-year-old male with past medical history of hypertension, diabetes, CKD stage II, TIA, hyperlipidemia history of anemia,, PAD with severe infrapopliteal disease status post stenting admitted for postoperative monitoring after he underwent angiogram and laser atherectomy of right SFA and right popliteal artery and DCB of right SFA and right popliteal and was admitted for further management Patient denies any chest pain or shortness of breath He responded well to treatment and is being discharged to home today in a stable condition with an advise to follow up with PCP in 1 week and also with Cardiology in 1 week Med Rec Med Rec Discharge meds: Continue taking these medications: ASPIRIN EC (ECOTRIN) 81 MG TAB.EC 81 MILLIGRAM ORAL DAILY. ALLOPURINOL (ZYLOPRIM) 300 MG TAB 300 MILLIGRAM ORAL DAILY. INSULIN GLARGINE (BASAGLAR KWIKPEN U-100 (15mL)) 100 UNIT/ML (3 ML) PEN.INJCTR 25 UNITS SUBCUTANEOUS DAILY. DULoxetine DR (CYMBALTA) 60 MG CAP.DR 60 MILLIGRAM ORAL DAILY. CARVEDILOL (COREG) 6.25 MG TAB 6.25 MILLIGRAM ORAL TWICE DAILY WITH MEALS. cloNIDine (cloNIDine) 0.1 MG TAB 0.1 MILLIGRAM ORAL DAILY. CLOPIDOGREL (PLAVIX) 75 MG TAB 75 MILLIGRAM ORAL DAILY. ATORVASTATIN (LIPITOR) 20 MG TAB 20 MILLIGRAM ORAL DAILY. amLODIPine (NORVASC) 10 MG TAB 10 MILLIGRAM ORAL DAILY. Objective VS/I O Last Documented: Result Date Time Pulse Ox 97 02/17 0904 B/P 161/65 02/17 0904 B/P Mean 97.3 02/17 0904 Temp 99.0 02/17 0904 Pulse 87 02/17 0904 Resp 16 02/17 0904 O2 Delivery Room air 02/16 1355 24 hour I O ending at 0700: 02/17 0700 02/16 1900 Intake Total 1200.00 Output Total 1650 225 Balance -450.00 -225 Intake, IV 1200.00 Output, Urine 1650 225 Physical Exam General appearance: alert, awake, oriented HEENT : normocephalic ,Atraumatic Eyes: Eyes normal inspection. ENT: Dry mucous membranes present. Neck: Normal inspection. Neck supple. CVS: Normal heart rate and rhythm. Heart sounds normal. Respiratory: No respiratory distress. Breath sounds normal. Abdomen: Soft and nontender. Genitourinary: no bladder distention Back: Normal inspection. Skin: Skin warm. Normal skin color. No rash. Extremities: No lower extremity edema. Neuro: Oriented X 3. No motor deficit No generalized lymph adenopathy Psych normal affect Discharge Instructions PCP Discharge to: Home/Self Care Additional Discharge Routines: PCP Follow-Up, Pelletizer Follow-Up Diet: Resume Home Diet/Feeds Discharge management: greater than 30 mins Follow-up Appointments PCP follow-up: PCP: Calos Morris MD PCP follow up timeframe: In 1-2 weeks Consulting provider 1: Provider 1: Dorinda Li MD Cardiology Specialty: CardiologyInterventional Consult follow up timeframe: In 1-2 weeks at [address] [facility] #: [id number] END OF REPORT [id number] 05:50:[id number] [facility] [address] [place] [address] PATIENT NAME: MICHAEL GAINES JR ADMIT DATE: 02/17/24 ACCOUNT NO: [id number] ROOM NO: [facility] AGE: 64 REPORT TYPE: eELECTROCARDIOGRAM SEX: M ADMITTING PHYSICIAN: Abrahan Ballard MD ATTENDING PHYSICIAN: Dorinda Li MD Order: [id number] Test Reason : CAD/Hyperkalemia Test Date/Time Stamp: MonFeb 18 2024 05:50:54 Blood Pressure : / mmHG Vent. Rate : 093 BPM Atrial Rate : 093 BPM P-R Int : 162 ms QRS Dur : 074 ms QT Int : 374 ms P-R-T Axes : 076 -08 072 degrees QTc Int : 465 ms Normal sinus rhythm Nonspecific ST and T wave abnormality Abnormal ECG When compared with ECG of 17-FEB-2024 07:07, Vent. rate has increased BY 34 BPM Confirmed by DORINDA LI ([id number]) on 02/18/2024 7:27:11 AM Referred By: Dorinda Li Confirmed by:DORINDA LI at 0727 PATIENT NAME: MICHAEL GAINES JR 12:47:00 [facility] ([facility]) Hospitalist History Physical REPORT#:[id number] REPORT STATUS: Signed REPORT INITIALIZATION DATE:02/17/24 TIME:1247 PATIENT: MICHAEL GAINES JR UNIT #: [id number] ROOM/BED: [place] [id number] : [birth year] AGE: 64 SEX: M ATTEND: Dorinda Li MD Cardiology ADM AUTHOR: Abrahan Ballard MD REPT SERVICE DT/TIME: 02/17/24 5304 * ALL edits or amendments must be made on the electronic/computer document * History of Present Illness HPI Chief complaint: Status post Peripheral angiogram and revascularization HPI: 64-year-old male with past medical history of hypertension, diabetes, CKD stage II, TIA, hyperlipidemia history of anemia,, PAD with severe infrapopliteal disease status post stenting admitted for postoperative monitoring after he underwent angiogram and laser atherectomy of right SFA and right popliteal artery and DCB of right SFA and right popliteal and was admitted for further management Patient denies any chest pain or shortness of breath History Past Medical Surgical Hx Additional medical history: Hypertension, hyperlipidemia, diabetes, Additional surgical history: Status post atherectomy Family History Family history: Reports: Hypertension. Social History Smoking status for patients 13 years old or older: Former Smoker Date last smoked: 06/26/16 Medication/Allergy-Vaccine Hx Medications: Home Medications: ASPIRIN EC (ECOTRIN) 81 MG PO DAILY ALLOPURINOL (ZYLOPRIM) 300 MG PO DAILY INSULIN GLARGINE (BASAGLAR KWIKPEN U-100 (15mL)) 25 UNITS SUBQ DAILY DULoxetine DR (CYMBALTA) 60 MG PO DAILY CARVEDILOL (COREG) 6.25 MG PO BID MEALS cloNIDine 0.1 MG PO DAILY CLOPIDOGREL (PLAVIX) 75 MG PO DAILY ATORVASTATIN (LIPITOR) 20 MG PO DAILY amLODIPine (NORVASC) 10 MG PO DAILY Allergies: Coded Allergies: No Known Allergies (02/16/24) Review of Systems Free Text ROS Notes Free Text ROS Notes: Constitutional: Reports: generalized weakness. Skin: Denies: rash. Allergy/Immun: Denies: rhinorrhea, sneezing. Eyes: Denies: visual loss/blurred. ENT: Denies: earache, nasal congestion. Respiratory: Denies: non productive cough. Cardiovascular: Denies: chest pain, palpitations. GI: Denies: diarrhea, nausea. : Denies: dysuria. Musculoskeletal: Reports: arthritis. Denies: extremity pain. Heme: Denies: bleeding. Endocrine: Denies: polydipsia. Neuro: Reports: dizziness, gait problem, lightheaded, spinning sensation. Psych: Reports: anxiety. All systems rev neg: except as noted OBJECTIVE VS/I O: Vital Signs Date Temp Pulse Resp B/P B/P Mean Pulse Ox FiO2 02/16 97.0 61-63 16-19 199/79 99-100 Last Documented: Result Date Time Pulse Ox 99 02/16 0658 B/P 199/79 02/16 0658 O2 Delivery Room air 02/16 06 Temp 97.0 02/16 0658 Pulse 63 02/16 0658 Resp 16 02/16 0658 24 hour I O ending at 0700: 02/16 0700 02/15 1900 Intake Total Output Total Balance Patient 180 lb 180 lb Weight Weight Stated/Reported Stated/Reported Measurement Method Patient Weight and BMI Weight (kg): 81.800 BMI: 28.2 Physical Exam General appearance: alert, awake, oriented HEENT : normocephalic ,Atraumatic Eyes: Eyes normal inspection. ENT: Dry mucous membranes present. Neck: Normal inspection. Neck supple. CVS: Normal heart rate and rhythm. Heart sounds normal. Respiratory: No respiratory distress. Breath sounds normal. Abdomen: Soft and nontender. Genitourinary: no bladder distention Back: Normal inspection. Skin: Skin warm. Normal skin color. No rash. Extremities: No lower extremity edema. Neuro: Oriented X 3. No motor deficit No generalized lymph adenopathy Psych normal affect Medications: Active Meds + DC'd Last 24 Hrs Allopurinol (ZYLOPRIM) 300 MG DAILY PO Amlodipine Besylate (NORVASC) 10 MG DAILY PO Aspirin (ECOTRIN) 81 MG DAILY PO Clonidine HCl (CATAPRES) 0.1 MG DAILY PO Clopidogrel Bisulfate (Plavix) 75 MG DAILY PO Duloxetine HCl (CYMBALTA) 60 MG DAILY PO Atorvastatin Calcium (LIPITOR) 20 MG BEDTIME PO Nitroglycerin (NITRO-BID) 1 INCH 0600,1200,1800 TRANSDERM Carvedilol (COREG) 6.25 MG BID MEALS PO Hydralazine HCl (APRESOLINE) 10 MG Q2H PRN PRN IV Acetaminophen (TYLENOL) 650 MG Q4H PRN PRN PO Hydrocodone Bitart/Acetaminophen (NORCO 5/325) 1 TAB Q4H PRN PRN PO Ondansetron HCl (ZOFRAN) 4 MG Q4H PRN PRN IV Sodium Chloride (0.9% Sodium Chloride) 1,000 ML .Q10H IV Nitroglycerin (NITRO-BID) 0 .STK-MED ONE .ROUTE (DC) Clopidogrel Bisulfate (PLAVIX) 0 .STK-MED ONE .ROUTE (DC) Iopamidol (ISOVUE-300) 0 .STK-MED ONE .ROUTE (DC) Heparin Sodium (Porcine) (HEPARIN SODIUM) 0 .STK-MED ONE .ROUTE (DC) Heparin Sodium (Porcine) (HEPARIN 1,000 UNITS/NS 500 ML) 1,500 ML .STK-MED ONE IV (DC) Midazolam HCl (VERSED) 0 .STK-MED ONE .ROUTE (DC) Fentanyl Citrate (SUBLIMAZE) 0 .STK-MED ONE .ROUTE (DC) Diazepam (VALIUM) 5 MG ONCALL PO (CKD) Diphenhydramine HCl (BENADRYL) 25 MG ONCALL PO (CKD) Sodium Chloride (0.9% Sodium Chloride) 1,000 ML ASDIR IV Results Findings/Data: Laboratory Tests: 02/16 02/16 1050 0645 Chemistry Sodium (136 - 145 mmol/L) 141 Potassium (3.4 - 5.0 mmol/L) 5.7 H Chloride (98 - 107 mmol/L) 107 Carbon Dioxide (21 - 32 mmol/L) 23 Anion Gap (4 - 15 GAP calc) 11 BUN (7 - 18 MG/DL) 45 H Creatinine (0.6 - 1.0 MG/DL) 1.9 H Glomerular Filtr Rate (>60 estGFR) 38 L Glucose (70 - 110 MG/DL) 173 H Calcium (8.5 - 10.1 MG/DL) 9.3 Magnesium (1.8 - 2.4 MG/DL) 2.5 H Total Bilirubin (0.0 - 1.0 MG/DL) 0.5 AST (15 - 37 Unit/L) 26 ALT (30 - 65 Unit/L) 26 L Total Alk Phosphatase (50 - 136 Unit/L) 142 H Total Protein (6.4 - 8.2 G/DL) 8.0 Albumin (3.4 - 5.0 G/DL) 3.4 Globulin (GM/dL) 4.6 Albumin/Globulin Ratio (1.2 - 2.2 RATIO) 0.7 L Triglycerides (0 - 150 MG/DL) 38 Cholesterol (133 - 200 MG/DL) 114 L LDL Cholesterol [place] (0 - 129 MG/DL) 55 Non-HDL Cholesterol (<130 mg/dL) 67 HDL Cholesterol (60 MG/DL) 47 L LDL/HDL Ratio (1.48 - 3.22 Avg Ratio) 1.17 L Cholesterol/HDL Ratio (0 RATIO) 2.43 Coagulation INR (0.8 - 1.2 INR Unit) 0.95 PT Patient/Control Mix (9.3 - 12.9 SECONDS) 10.5 Activated Coag Time (110 - 182 SEC) 346 H Hematology WBC (3.5 - 11.0 K/mm3) 8.8 RBC (4.70 - 6.10 M/mm3) 3.31 L Hgb (12.3 - 15.9 G/DL) 10.1 L Hct (35.8 - 46.7 %) 31.2 L MCV (86.3 - 98.9 Fl) 94.3 MCH (28.9 - 34.4 pg) 30.5 MCHC (32.1 - 34.5 G/DL) 32.4 RDW (11.5 - 14.5 SD) 14.1 Plt Count (150 - 450 K/mm3) 313 MPV (7.0 - 9.6 fL) 10.70 H Neut % (Auto) (40 - 76 %) 66.3 Lymph % (Auto) (20.5 - 51.1 %) 21.5 [place] % (Auto) (1.7 - 9.3 %) 8.7 Eos % (Auto) (0.0 - 6.0 %) 2.0 Baso % (Auto) (0.0 - 2.0 %) 0.7 Neut # (Auto) (1.8 - 7.6 K/mm3) 5.8 Lymph # (Auto) (0.6 - 3.0 K/mm3) 1.9 [place] # (Auto) (0.2 - 1.5 K/mm3) 0.8 Eos # (Auto) (0.0 - 0.4 K/mm3) 0.2 Baso # (Auto) (0.0 - 0.2 K/mm3) 0.1 Abs Immat Gran (auto) (0.00 - 0.03 x10 3/uL) 0.07 H Immature Gran % (0.0 - 5.0 %) 0.8 Nucleated RBC % (0.0 - 1.0 /100WBC%) 0.0 Laboratory Tests 02/17/24 0645: [Embedded Image Not Available] Diagnosis, Assessment Plan Free Text A P: PAD Status post laser atherectomy of right SFA and right popliteal artery Continue antiplatelets Pain control Monitor closely under telemetry Appreciate help from cardiology Diabetes Insulin sliding scale Accu-Chek before every meal and at bedtime Will get an A1c in a.m Hypertension Antihypertensives titrated Continue home medications and titrate as needed Hyperlipidemia We will get a lipid panel and A1c Continue statin CKD stage II Nephrology consult IV hydration Monitor renal parameters Electrolytes monitor and replace accordingly GI/DVT prophylaxis Advanced directive full code at [address] [facility] #: [id number] END OF REPORT [id number]:[id number] [facility] [address] [place] [address] PATIENT NAME: MICHAEL GAINES JR ADMIT DATE: 02/17/24 ACCOUNT NO: [id number] ROOM NO: L.PO7 AGE: 64 REPORT TYPE: OPERATIVE REPORT SEX: M ADMITTING PHYSICIAN: Abrahan Ballard MD ATTENDING PHYSICIAN: Dorinda iL MD Cardiology OPERATION DATE: 02/17/2024 CARDIOVASCULAR PROCEDURE PREOPERATIVE DIAGNOSIS: POSTOPERATIVE DIAGNOSIS: INDICATION FOR THE PROCEDURE: Leg pain, severe peripheral arterial disease with right foot ulceration and the patient with multiple previous procedures. TITLE OF PROCEDURE: 1. Abdominal and bilateral selective iliofemoral angiograms. 2. First order angiogram of the left lower extremity. 3. Third order angiogram of the right lower extremity. 4. Laser atherectomy of the right SFA and right popliteal. 5. DCB of the right SFA and right popliteal. 6. Closing device. SURGEON: Dorinda Li MD CERTIFIED FRAUD EXAMINER: ESTIMATED BLOOD LOSS: Minimal. COMPLICATIONS: None. CONTRAST: 60 mL ANESTHESIA: Conscious sedation with Versed and fentanyl. 1% lidocaine for local anesthesia. FINAL DIAGNOSIS: Severe right and moderate left superficial femoral artery disease. The patient is now status post laser atherectomy and drug-coated balloon of the entire superficial femoral artery on the right and the popliteal. RECOMMENDATION: Observation overnight given the patient's renal insufficiency and contrast use. PROCEDURE IN DETAIL: After informed consent, the patient was brought to the cardiac catheterization lab in a stable fasting nonsedated state. He was prepped and draped in the usual sterile fashion. After conscious sedation, 1% PATIENT NAME: MICHAEL GAINES JR lidocaine was administered to the left common femoral artery area for local anesthesia. A 6-Barbadian sheath was placed in the left common femoral artery just distal to the existing stent. This was done using fluoroscopy. Abdominal angiogram showed 30% plaque in the distal aorta, patent right common iliac stent, patent right external iliac stent. In between the two stents, there was a 20% lesion. The SFA starts off at 80% ostial and 90% and then occludes completely right before the existing stent and then distally, there is a 40% at the popliteal. There is 3-vessel runoff with single vessel disease. Left lower extremity selective angiogram was carried out that showed the sheath insertion in the right spot, right distal to the stent. There was a 60% eccentric ulcerated lesion in the proximal left SFA, then followed by 35% lesions, then 45, then 55 at the popliteal. There is a 2- to 3-vessel runoff with 2-vessel disease distally. I decided to intervene on the right SFA, the culprit vessel for the patient with the foot ulcers. Up and over sheath was used. I was able to cross the lesions with a Storq wire and using the [employer] NaviCross catheter. Then, I exchanged that for a V-18 wire and did a laser atherectomy [employer] 2 runs back and forth from beginning of the SFA to the popliteal. This was followed by DCB balloons [employer] IN.PACT. The first one done proximally was 6 x 250, then the second one does overlapping distally, covering the popliteal was 6 x 200. Those resulted in less than 30% residual and good angiographic results, good flow and no dissections or need for any further intervention. The patient tolerated the procedure well. There were no complications. The left groin was sealed using Mynx. The patient was transferred to the holding area for observation and he will be admitted for observation overnight because of his renal insufficiency and hyperkalemia. Rest as per orders. Dictated By: Dorinda Li MD Date Dictated: 02/17/2024 12:10:10 Date Transcribed: 02/17/2024 18:16:59 SFD/EZE/RIP Receipt ID: [id number] Authenticated by Dorinda Li MD On 02/18/2024 07:13:45 AM at 0713 PATIENT NAME: MICHAEL GAINES JR 07:07:[id number] [place] [id number] PATIENT NAME: MICHAEL GAINES JR ADMIT DATE: 02/17/24 ACCOUNT NO: [id number] ROOM NO: AGE: 64 REPORT TYPE: eELECTROCARDIOGRAM SEX: M ADMITTING PHYSICIAN: ATTENDING PHYSICIAN: Dorinda Li MD Order: [id number] Test Reason : PRE OP Test Date/Time Stamp: MonFeb 17 2024 07:07:31 Blood Pressure : / mmHG Vent. Rate : 059 BPM Atrial Rate : 059 BPM P-R Int : 168 ms QRS Dur : 074 ms QT Int : 416 ms P-R-T Axes : 060 -09 085 degrees QTc Int : 411 ms Sinus bradycardia Otherwise normal ECG When compared with ECG of 18-DEC-2021 05:54, Questionable change in QRS axis Confirmed by DORINDA LI ([id number]) on 02/17/2024 8:27:34 AM Referred By: Calos Morris Confirmed by:DORINDA LI at 0827 PATIENT NAME: MICHAEL GANIES JR 16:[id number] [place] [id number] PATIENT NAME: MICHAEL GAINES JR ADMIT DATE: ACCOUNT NO: [id number] ROOM NO: AGE: 64 REPORT TYPE: HISTORY AND PHYSICAL SEX: M ADMITTING PHYSICIAN: ATTENDING PHYSICIAN: Dorinda Li MD PATIENT NAME: MICHAEL GAINES JR ADMIT DATE:02/17/2024 ADMISSION DATE: 02/17/2024 07:00:00 DIVORCE LAWYER: Dorinda Li MD. REASON FOR ADMISSION: Symptomatic peripheral arterial disease for peripheral angiograms and possible revascularization. HISTORY OF PRESENT ILLNESS: Michael is a 64-year-old patient with known atherosclerotic cardiovascular disease and multiple previous interventions detailed below. The patient comes in with worsening symptoms and worsening findings on lower arterial Doppler examination with the right ankle brachial index now at 0.45, the left at 0.60. The right is suggestive of iliofemoral disease. The left is suggestive of infrapopliteal and small vessel disease. The patient is here for angiography and possible revascularization of the right lower extremity from the left groin approach. The patient's symptoms are worse on the right leg. His last intervention was carried out in 2021. He had actually 3 interventions that year. Diagrams from previous interventions are enclosed. The last intervention on 12/18/2021 was on the left lower extremity. On 10/30/2021, he had his right lower extremity done. He has had both iliacs done and both SFAs done. He has known severe infrapopliteal disease. At this time, he appears to have worsening of his disease on the right leg. The patient has had also intervention and stenting of the left common femoral artery with an Express stent 7 x 15 back in 2021, so we will have to be careful in the access on the left groin to go up and over and intervene on the right leg. The patient has done well since 2021 until recently. The patient has also dyspnea, has known history of ischemic cardiomyopathy. He has less than 50% carotid disease and an abnormal baseline EKG. Last ejection fraction by echo was normal on medical treatment. His last nuclear stress test showed ejection fraction of 46%, but no evidence of ischemia. The patient's main problem at this time is symptomatic right lower extremity claudications and ischemia. PAST MEDICAL HISTORY: Remarkable for hypertension, history of TIA, strokes. There is no history of congestive heart failure. He has hyperlipidemia, diabetes, chronic renal insufficiency, hearing loss and anemia and had COVID back in 2021. PAST SURGICAL HISTORY: The above mentioned cardiovascular procedures and right toe amputations on the third and fourth in 2022. He has had also appendectomy in the past. ALLERGIES: NO KNOWN DRUG ALLERGIES. PATIENT NAME: MICHAEL GAINES JR MEDICATIONS: Aspirin 81 mg daily, allopurinol 300 mg daily, insulin, carvedilol 6.25 mg b.i.d., clopidogrel 75 mg daily, clonidine 0.1 mg daily, atorvastatin 20 mg daily, amlodipine 10 mg daily. SOCIAL HISTORY: The patient quit smoking years ago. There is no history of alcohol or street drug use. FAMILY HISTORY: Negative for premature atherosclerosis. REVIEW OF SYSTEMS: Remarkable for the above, in addition to snoring, decreased hearing, fatigue, history of difficulty balancing and the above mentioned symptoms of peripheral arterial disease. The rest of the review of systems is enclosed. PHYSICAL EXAMINATION: GENERAL: Reveals a pleasant 64-year-old patient in no acute distress. VITAL SIGNS: Blood pressure 140/65, pulse 51 and regular, respiratory rate 16 and unlabored, temperature afebrile. HEENT: Head atraumatic, normocephalic. Eyes and ENT examination within normal for age. NECK: Supple, no jugular venous distention, bruits or lymphadenopathy. Normal upstroke. LUNGS: Decreased air entry, otherwise clear and resonant. HEART: Regular rate and rhythm with 1/6 systolic ejection murmur at the left lower sternal border. No gallops. The heart is bradycardic. ABDOMEN: Soft, no tenderness, no organomegaly, no masses or bruits. EXTREMITIES: Difficult to find distal pulses. He has his third and fourth digit on the right leg amputated. No cyanosis or clubbing. No edema. NEUROLOGIC: Alert and oriented x3. The examination appears to be nonfocal. LABORATORY DATA: Pending. Noninvasive cardiovascular workup enclosed. IMPRESSION: This is a 64-year-old patient with multiple cardiovascular risk factors, diabetes, renal insufficiency, known peripheral arterial disease with multiple previous interventions, who comes in with worsening symptoms and worsening disease on the right lower extremity by Doppler examination. The patient is here for abdominal and bilateral selective iliofemoral angiograms and possible revascularization of the right lower extremity. The access will be from the left groin, will be done under fluoroscopy given the previous stenting in the area. The intervention on the right leg will be carried most likely up and over technique. The recommendation is to proceed with above mentioned procedures. The risks and benefits of the planned procedures were discussed in detail with the patient and available family members and he is willing to proceed. Rest as per orders. Dictated By: Dorinda Li MD Date Dictated: 02/16/2024 16:46:38 Date Transcribed: 02/17/2024 00:09:15 SFD/JORDON PATIENT NAME: MICHAEL GAINES JR Receipt ID: [id number] Authenticated and Edited by Dorinda Li MD On 02/17/24 6:18:33 AM at 0620 PATIENT NAME: MICHAEL GAINES JR 10:20:[id number] [place] [address] PATIENT NAME: MICHAEL GAINES JR ADMIT DATE: 12/18/21 ACCOUNT NO: [id number] ROOM NO: AGE: 61 REPORT TYPE: CARDIAC CATHETERIZATION REPORT SEX: M ADMITTING PHYSICIAN: ATTENDING PHYSICIAN:Dorinda Li MD Cardiology PROCEDURE DATE: 12/18/2021 DIVORCE LAWYER: Dorinda Li M.D. INDICATION FOR THE PROCEDURE: Disabling claudications of the left lower extremity in a patient with known severe atherosclerotic cardiovascular disease and multiple previous interventions. TITLE OF THE PROCEDURE: 1. Abdominal and bilateral selective iliofemoral angiograms. 2. First order angiogram of the right lower extremity. 3. Third order angiogram of the left lower extremity. 4. MFT and stenting of a focal lesion of the left common femoral. 5. MFT of the left tibioperoneal trunk. 6. Sealing device. ESTIMATED BLOOD LOSS: Minimal. COMPLICATIONS: None. CONTRAST: 90 mL. ANESTHESIA: Conscious sedation with Versed and fentanyl and 1% lidocaine for local anesthesia. FINAL DIAGNOSES: Severe peripheral arterial disease; patent previously stented areas; patent previous PCI areas; new lesion in the left common femoral 75%, status post MFT and stenting; and tibioperoneal disease on the left, status post MFT and sealing device. PROCEDURE IN DETAIL: After informed consent, the patient was brought to the cardiac catheterization lab in a stable fasting nonsedated state. He was prepped and draped in the usual sterile fashion. After conscious sedation, 1% lidocaine was administered to the right common femoral artery area for local anesthesia. A 6-Barbadian sheath was placed in the right common femoral artery using standard techniques and fluoroscopy. After heparinization, selective first order angiogram of the right lower extremity showed patent right external iliac stent. The right SFA mid 55% and the stent distally is patent at 10% residual. Distally there is 90% infrapopliteal disease with 2-vessel runoff. Abdominal angiogram showed no renal artery stenosis, good aortoiliac bifurcation, there is 30% right common iliac disease and 20% left common iliac disease. Follow through showed the lesions that are described below better with PATIENT NAME: MICHAEL GAINES JR selective angiogram. Then using an up and over sheath and before that using the pigtail with the [place] [employer] wire, I did selective third order angiogram of the left lower extremity. There is 40% eccentric plaque of the left proximal SFA 30% mid and 50% distal at the popliteal. Then, the posterior tibial is occluded after the proximal segment. The tibioperoneal trunk had an 80% lesion with a 2-vessel runoff with very slow flow. I decided to intervene on the left common femoral lesion and the tibioperoneal lesion after heparinization and Plavix. The wire used was a Luge wire. The left common femoral lesion received an Express 7 x 15 stent and that resulted in 0% residual and then the tibioperoneal lesions received a [employer] [place] Emerge 3.0 x 30 that was dilated at 12 atmospheres and that resulted in less than 10% residual and great distal flow. The right groin was sealed using Angio-Seal. There were no complications. The patient tolerated the procedure well and was transferred back to the holding area for observation to be discharged in few hours on medical therapy and risk factor modification. Dictated By: Dorinda Li MD WT: CATH:DELGADO/ALICE/VICKY Conf#: [id number]/DID#: [id number] Authenticated by Dorinda Li MD On 12/18/2021 02:21:29 PM at 0221 PATIENT NAME: MICHAEL GAINES JR 05:54:[id number] [place] [id number] PATIENT NAME: MICHAEL GAINES JR ADMIT DATE: 12/18/21 ACCOUNT NO: [id number] ROOM NO: AGE: 61 REPORT TYPE: ELECTROCARDIOGRAM SEX: M ADMITTING PHYSICIAN: ATTENDING PHYSICIAN:Dorinda Li MD Cardiology Order: [id number] Test Reason : PRE-OP Test Date/Time Stamp: MonDec 18 2021 05:54:42 Blood Pressure : / mmHG Vent. Rate : 067 BPM Atrial Rate : 067 BPM P-R Int : 164 ms QRS Dur : 080 ms QT Int : 408 ms P-R-T Axes : 051 050 074 degrees QTc Int : 431 ms Normal sinus rhythm Normal ECG When compared with ECG of 30-OCT-2021 07:04, Nonspecific T wave abnormality no longer evident in Inferior leads Confirmed by DORINDA LI ([id number]) on 12/18/2021 7:34:31 AM Referred By: Self Referred Confirmed by:DORINDA LI at 0734 PATIENT NAME: MICHAEL GAINES JR 05:54:[id number] [address] PATIENT NAME: MICHAEL GAINES JR ADMIT DATE: 12/18/21 ACCOUNT NO: [id number] ROOM NO: AGE: 61 REPORT TYPE: ELECTROCARDIOGRAM SEX: M ADMITTING PHYSICIAN: ATTENDING PHYSICIAN:Dorinda Li MD Cardiology Order: [id number] Test Reason : PRE-OP Test Date/Time Stamp: MonDec 18 2021 05:54:42 Blood Pressure : / mmHG Vent. Rate : 067 BPM Atrial Rate : 067 BPM P-R Int : 164 ms QRS Dur : 080 ms QT Int : 408 ms P-R-T Axes : 051 050 074 degrees QTc Int : 431 ms Normal sinus rhythm Normal ECG When compared with ECG of 30-OCT-2021 07:04, Nonspecific T wave abnormality no longer evident in Inferior leads Confirmed by DORINDA LI ([id number]) on 12/21/2021 12:25:14 PM Referred By: Self Referred Confirmed by:DORINDA LI at 1225 PATIENT NAME: MICHAEL GAINES JR 07:40:[id number] [place] [address] PATIENT NAME: MICHAEL GAINES JR ADMIT DATE: ACCOUNT NO: [id number] ROOM NO: AGE: 61 REPORT TYPE: HISTORY AND PHYSICAL SEX: M ADMITTING PHYSICIAN: ATTENDING PHYSICIAN:Dorinda Li MD PATIENT NAME: MICHAEL GAINES JR ADMIT DATE:12/18/2021 ADMISSION DATE: 12/18/2021 ADMISSION HISTORY AND PHYSICAL DATE OF ADMISSION/DATE OF PROCEDURE: 12/18/2021 REASON FOR ADMISSION: Abdominal and bilateral selective iliofemoral angiograms and possible revascularization for symptomatic peripheral arterial disease. HISTORY OF PRESENT ILLNESS: Michael is a 61-year-old patient of [facility] with known significant atherosclerotic cardiovascular disease, who was last at [facility] on 10/30/2021. The patient has had multiple interventions detailed below. His last procedure was revascularization of the right external iliac and the right SFA. At that time, he was found to have a significant lesion at the left common femoral at 90%. On 10/02/2021, the patient underwent left external iliac stenting. Back in 2017, he had right SFA stenting. The patient's main problem now is the left leg due to the left common femoral lesion is symptomatic from that leg and his last lower arterial Doppler examination showed the right ankle brachial index to be 0.75, which is stable. The left one however is 0.52, which is worse than before and is attributed to that lesion. That study was done on 12/03/2021. So, the patient will undergo angiograms checking on both legs and revascularization of the left common femoral artery. The access will be from the right groin. The patient has not had any active coronary problems. His last nuclear stress test was negative in 2019. He had a carotid Doppler in 2020 showing less than 45% disease. His main problem has been the peripheral arterial disease and his symptoms are mainly on the left leg at this time with abnormal ANKIT. PAST MEDICAL HISTORY: Remarkable for hypertension, history of TIA, stroke, hyperlipidemia, diabetes, and COVID back in October 2021. PAST SURGICAL HISTORY: The above-mentioned procedures and appendectomy. ALLERGIES: NO KNOWN DRUG ALLERGIES. MEDICATIONS: Aspirin 81 mg daily, Plavix 75 mg daily, and atorvastatin 20 mg daily. He could not afford Xarelto, so it has been on hold, amlodipine 10 mg daily, duloxetine 60 mg daily, clonidine 0.1 mg at night, benazepril 40 mg daily, hydrochlorothiazide 25 mg daily, and amlodipine 10 mg daily. SOCIAL HISTORY: The patient is a former smoker. He denies alcohol or street PATIENT NAME: MICHAEL GAINES JR drug use. FAMILY HISTORY: Positive for atherosclerotic cardiovascular disease. REVIEW OF SYSTEMS: Remarkable for the above in addition to decreased hearing, snoring, PAD symptoms, and previously mentioned TIA and strokes with balance problems. No acute GI or symptoms. PHYSICAL EXAMINATION: GENERAL: Reveals a pleasant middle-aged male, in no acute distress. VITAL SIGNS: Blood pressure 136/71, pulse 74 and regular, respiratory rate 16 unlabored, and temperature afebrile. HEENT: Head, atraumatic and normocephalic. Eyes and ENT examination within normal for age. NECK: Supple. No jugular venous distention, bruits, or lymphadenopathy. Normal upstroke. LUNGS: Clear and resonant. HEART: Regular rate and rhythm with I/ systolic ejection murmur at the left lower sternal border. No gallops. ABDOMEN: Soft. No tenderness, no organomegaly, and no masses or bruits. EXTREMITIES: Showed 1 to 2+ pulses on the right, 1+ on the left. No edema, cyanosis, or clubbing. NEUROLOGIC: Alert and oriented x3. The examination appears to be nonfocal. LABORATORY DATA: Pending. Noninvasive cardiovascular workup enclosed. IMPRESSION: This is a 61-year-old patient with known significant atherosclerotic cardiovascular disease and multiple previous interventions detailed below. The patient is having symptoms and abnormal lower arterial Doppler examination due to a focal lesion in the left common femoral artery. His other peripheral arterial disease appears to be stable at this time. He has stable cardiovascular status. The patient is here for angiograms and possible revascularization of the left common femoral artery. RECOMMENDATIONS: The recommendation is to proceed with the above-mentioned procedures. The risks and benefits of the planned procedure were discussed in detail with the patient and available family members and he is willing to proceed. The access will be from the right groin. Dictated By: Dorinda Li MD WT: HP:NITISH/ALICE/VICKY Conf#: [id number]/DID#: [id number] Authenticated and Edited by Dorinda Li MD On 12/10/21 4:26:42 PM at 0429 PATIENT NAME: MICHAEL GAINES JR 09:59:[id number] [place] [address] PATIENT NAME: MICHAEL GAINES JR ADMIT DATE: 10/30/21 ACCOUNT NO: [id number] ROOM NO: AGE: 61 REPORT TYPE: CARDIAC CATHETERIZATION REPORT SEX: M ADMITTING PHYSICIAN: ATTENDING PHYSICIAN:Dorinda Li MD PROCEDURE DATE: 10/30/2021 CARDIOVASCULAR PROCEDURE DIVORCE LAWYER: Dorinda Li MD INDICATION FOR THE PROCEDURE: Severe peripheral artery disease with leg pains and abnormal ABIs, restenosis on the right SFA. TITLE OF THE PROCEDURE: Selective bilateral iliofemoral angiograms, third order on the right, first order on the left, MFT and stenting of the right external iliac, DCB of the mid right SFA restenosis, CSI atherectomy, and DCB of the right SFA proximal. ESTIMATED BLOOD LOSS: Minimal. COMPLICATIONS: None. CONTRAST: 70 mL. ANESTHESIA: Conscious sedation with Versed and fentanyl and 1% lidocaine for local anesthesia. FINAL DIAGNOSES: Severe peripheral arterial disease in both legs, status post percutaneous coronary intervention and stenting of the right external iliac, status post atherectomy and DCB of the right proximal SFA and DCB of the right mid to distal SFA. The recommendation is observation today and then to come back for evaluation of his left common femoral lesion if clinically indicated. PROCEDURE IN DETAIL: After informed consent, the patient was brought to the cardiac catheterization lab in a stable fasting nonsedated state. He was prepped and draped in the usual sterile fashion. After conscious sedation, 1% lidocaine was administered to the left common femoral artery area for local anesthesia. A 6-Barbadian sheath was put in the left common femoral artery using standard techniques and fluoroscopy. I had to use a micropuncture because the patient has a stent in the left external iliac. Angiograms of the left external iliac showed patent stent with 0% residual. The common femoral, there was a 90% lesion right under the sheath insertion. The SFA had a 40% plaque and distally 45% in the popliteal with 2-vessel runoff with diffuse disease distally. Selective angiogram of the right SFA, third order showed 70% proximal lesion. The restenosis in the stented area around 90% and 80%. There is 50% in the popliteal and 2-vessel runoff distally with diffuse disease. Selective PATIENT NAME: MICHAEL GAINES JR angiogram of the right external iliac showed a 70% lesion with a large gradient. So we proceeded with the Viper wire using the [place] catheter. Initially, we used the [place] Advantage wire to get the up and over sheath and first we did a DCB with Lutonix 7 x 40 of the stented area in the mid to distal SFA and that resulted in less than 10% residual. Then, the proximal SFA we did Diamondback atherectomy solid and did 3 runs low, medium, and high and then followed it with the DCB of the proximal SFA Lutonix 6 x 40 that resulted in less than 10% residual and good flow. The iliac lesion was primary stented with a Visi-Pro 7 x 57 and that resulted in 0% residual. The left groin sheath will be pulled out manually. The patient will be observed the rest of the day. He will need further evaluation of his left common femoral at a later date with access from the right leg if symptomatic. There were no complications. The patient tolerated the procedure well. Dictated By: Doirnda Li MD WT: CATH:DELGADO/ALICE/VICKY Conf#: [id number]/DID#: [id number] Authenticated by Dorinda Li MD On 10/30/2021 01:23:58 PM at 0123 PATIENT NAME: MICHAEL GAINES JR 07:[id number] [place] [id number] PATIENT NAME: MICHAEL GAINES JR ADMIT DATE: 10/30/21 ACCOUNT NO: [id number] ROOM NO: AGE: 61 REPORT TYPE: ELECTROCARDIOGRAM SEX: M ADMITTING PHYSICIAN: ATTENDING PHYSICIAN:Dorinda Li MD Order: [id number] Test Reason : PRE-OP Test Date/Time Stamp: MonOct 30 2021 07:04:24 Blood Pressure : / mmHG Vent. Rate : 070 BPM Atrial Rate : 070 BPM P-R Int : 164 ms QRS Dur : 078 ms QT Int : 392 ms P-R-T Axes : 039 036 035 degrees QTc Int : 423 ms Normal sinus rhythm Nonspecific T wave abnormality Abnormal ECG When compared with ECG of 02-OCT-2021 07:11, No significant change was found Confirmed by DORINDA LI ([id number]) on 10/30/2021 1:17:41 PM Referred By: Dorinda Li Confirmed by:DORINDA LI at 1317 PATIENT NAME: MICHAEL GAINES JR 07:[id number] [address] PATIENT NAME: MICHAEL GAINES JR ADMIT DATE: ACCOUNT NO: [id number] ROOM NO: AGE: 61 REPORT TYPE: HISTORY AND PHYSICAL SEX: M ADMITTING PHYSICIAN: ATTENDING PHYSICIAN:Dorinda Li MD PATIENT NAME: MICHAEL GAINES JR ADMIT DATE:10/30/2021 ADMISSION DATE: 10/30/2021 DIVORCE LAWYER: Dorinda Li MD REASON FOR ADMISSION: Staged intervention on his right lower extremity in a patient with known severe atherosclerotic cardiovascular disease and recent intervention on his left lower extremity. HISTORY OF PRESENT ILLNESS: Michael is a 61-year-old patient with known atherosclerotic cardiovascular disease, who was last at [facility] on 10/02/2021. He had symptomatic peripheral artery disease in both lower extremities. At that time, the patient received a drug-eluting stent of the left external iliac. His left SFA had moderate disease. He had severe infrapopliteal disease bilaterally. He was, however, found to have severe restenosis of his right SFA, had 55% disease of the right external iliac. The patient came back for followup. He is doing well from the left lower extremity standpoint. He is, however, having symptoms on his right lower extremity at this time and he is here for intervention on his right SFA and possibility of the right external iliac. There has been no other interval change in his history from the recent admission. PAST MEDICAL HISTORY: Have not changed from recent evaluation from September 2021. PAST SURGICAL HISTORY: Have not changed from recent evaluation from September 2021. ALLERGIES: Have not changed from recent evaluation from September 2021. MEDICATIONS: Have not changed from recent evaluation from September 2021. SOCIAL HISTORY: Have not changed from recent evaluation from September 2021. FAMILY HISTORY: Have not changed from recent evaluation from September 2021. REVIEW OF SYSTEMS: Have not changed from recent evaluation from September 2021. PHYSICAL EXAMINATION: GENERAL: Reveals a pleasant middle-aged male, in no acute distress. VITAL SIGNS: Blood pressure 140/70, pulse 77 and regular, respiratory rate 16 and unlabored, and temperature afebrile. HEENT: Head, atraumatic and normocephalic. Eyes ENT examination within normal for age. PATIENT NAME: MICHAEL GAINES JR NECK: Supple. No jugular venous distention, bruits, or lymphadenopathy. Normal upstroke. LUNGS: Clear and resonant. HEART: Regular rate and rhythm with I/ systolic ejection murmur at the left lower sternal border. No gallops. ABDOMEN: Soft. No tenderness, no organomegaly, no masses or bruits. EXTREMITIES: 1+ distal pulses on the right, 1 to 2+ on the left. No edema, cyanosis, or clubbing. NEUROLOGIC: Alert and oriented x3. The examination appears to be nonfocal. LABORATORY DATA: Pending. Noninvasive cardiovascular workup enclosed. IMPRESSION: This is a 61-year-old patient with advanced atherosclerotic cardiovascular disease, status post previous interventions, now in both lower extremities. He is here with restenosis of his right SFA. He recently had a left external iliac intervention. The recommendation is to proceed with the above-mentioned procedures from the left groin. Selective angiogram of the left lower extremity will be carried out and then we will proceed with intervention on the right SFA and possibly the right external iliac. The recommendation is to proceed with the above-mentioned procedures. The risks and benefits of the planned procedures were discussed in detail with the patient and available family members and he is willing to proceed. Rest as per orders. Dictated By: Dorinda Li MD WT: HP:NITISH/ALICE/VICKY Conf#: [id number]/DID#: [id number] Authenticated and Edited by Dorinda Li MD On 10/29/21 5:04:51 PM at 0507 PATIENT NAME: MICHAEL GAINES JR 10:54:[id number] [address] PATIENT NAME: MICHAEL GAINES JR ADMIT DATE: 10/02/21 ACCOUNT NO: [id number] ROOM NO: AGE: 61 REPORT TYPE: CARDIAC CATHETERIZATION REPORT SEX: M ADMITTING PHYSICIAN: ATTENDING PHYSICIAN:Dorinda Li MD PROCEDURE DATE: 10/02/2021 DIVORCE LAWYER: Dorinda Li M.D. INDICATION FOR THE PROCEDURE: Leg pain, peripheral arterial disease. TITLE OF THE PROCEDURE: 1. Abdominal and bilateral selective iliofemoral angiograms. 2. First order angiogram with right lower extremity. 3. Third order angiogram of the left lower extremity. 4. Drug-eluting stent of the left external iliac. 5. MFT of the left external iliac. 6. Sealing device. ESTIMATED BLOOD LOSS: Minimal. COMPLICATIONS: None. CONTRAST: 90 mL. ANESTHESIA: Conscious sedation with Versed and fentanyl, 1% lidocaine for local anesthesia. FINAL DIAGNOSES: Severe restenosis of the right SFA stent, severe bilateral infrapopliteal disease, 55% right external iliac lesion, 80% left external lesion, moderate left SFA disease, status post PCI and drug-eluting stent of the left external iliac. RECOMMENDATION: Medical therapy. PROCEDURE IN DETAIL: After informed consent, the patient was brought to the cardiac catheterization lab in a stable fasting nonsedated state. He was prepped and draped in the usual sterile fashion. After conscious sedation, 1% lidocaine was administered to the right common femoral artery area for local anesthesia. A 6-Barbadian sheath was placed in the right common femoral artery using standard techniques and fluoroscopy. After heparinization, selective first order angiogram of the right lower extremity showed 55% right external iliac disease, 90% restenosis of the proximal stented SFA and then 80% mid SFA disease restenosis. Distally there was 2-vessel runoff with diffuse disease. Abdominal angiogram showed no renal artery stenosis. The aorta and the common iliacs appeared to be okay. The left external iliac had 80% lesion that was catheter occlusive. Selective third order angiogram of the left SFA showed 35% PATIENT NAME: MICHAEL GAINES JR proximal plaquing, then 30% plaquing, 40% in the middle and 45% left popliteal; 2-vessel runoff distally with diffuse disease. I decided to intervene on the left external iliac lesion. The wire used was the Storq wire. Up and over sheath was used. I did stenting of the left external iliac with a Cook drug-eluting stent 7 x 60 and then post-dilated it with a 7 x 40, it was actually a 6 x 60 stent and postdilated with a 7 x 40 EverCross balloon. That resulted in 0% residual and good distal flow. The right groin was sealed using Angio-Seal. There were no complications. The patient tolerated the procedure well and was transferred back to the holding area for observation to be discharged in few hours on medical therapy and risk factor modification. Dictated By: Dorinda Li MD WT: CATH:DELGADO/ALICE/VICKY Conf#: [id number]/DID#: [id number] Authenticated by Dorinda Li MD On 10/02/2021 12:42:48 PM at 1242 PATIENT NAME: MICHAEL GAINES JR 07:11:[id number] [place] [id number] PATIENT NAME: MICHAEL GAINES JR ADMIT DATE: 10/02/21 ACCOUNT NO: [id number] ROOM NO: AGE: 61 REPORT TYPE: ELECTROCARDIOGRAM SEX: M ADMITTING PHYSICIAN: ATTENDING PHYSICIAN:Dorinda Li MD Order: [id number] Test Reason : PRE-OP Test Date/Time Stamp: MonOct 02 2021 07:11:46 Blood Pressure : / mmHG Vent. Rate : 072 BPM Atrial Rate : 072 BPM P-R Int : 162 ms QRS Dur : 078 ms QT Int : 392 ms P-R-T Axes : 034 039 028 degrees QTc Int : 429 ms Normal sinus rhythm Normal ECG When compared with ECG of 10-DEC-2016 07:06, No significant change was found Confirmed by DORINDA LI ([id number]) on 10/04/2021 12:56:38 PM Referred By: Self Referred Confirmed by:DORINDA LI at 1256 PATIENT NAME: MICHAEL GAINES JR 07:03:[id number] [address] PATIENT NAME: MICHAEL GAINES JR ADMIT DATE: ACCOUNT NO: [id number] ROOM NO: AGE: 61 REPORT TYPE: HISTORY AND PHYSICAL SEX: M ADMITTING PHYSICIAN: ATTENDING PHYSICIAN:Dorinda Li MD PATIENT NAME: MICHAEL GAINES JR ADMIT DATE:10/02/2021 ADMISSION DATE: 10/02/2021 ADMISSION HISTORY AND PHYSICAL DIVORCE LAWYER: Dorinda Li MD REASON FOR ADMISSION: Symptomatic peripheral arterial disease for angiography and possible revascularization. HISTORY OF PRESENT ILLNESS: Michael is a 61-year-old patient with known atherosclerotic cardiovascular disease and previous peripheral arterial disease intervention, who recently been having worsening symptoms, especially of the left lower extremity. His last angiogram was done on 12/10/2016. At that time, he was found to have 35% to 40% plaquing of the left SFA, 35% plaquing of the left external iliac. The right SFA had an 80% lesion and underwent angiography and stenting. He also had an angioplasty of the right PT. The patient has done well from his right lower extremity recently. He has been having worsening symptoms of his left lower extremity. He had a lower arterial Doppler examination that showed the right ankle brachial index to be 0.8 and the left ankle brachial index to be 0.59, showing worsening disease of the left lower extremity, appears to be in the SFA region. Given this information, the patient is here for abdominal and bilateral selective iliofemoral angiograms and possible intervention of the left lower extremity. Cardiac shepard, he has dyspnea on exertion. He does not have any angina. His last echocardiogram showed hypertensive changes. No valvular disease. His last nuclear stress test in 2019 showed ejection fraction of 46% with no evidence of ischemia. The patient has been stable from the cardiac standpoint. PAST MEDICAL HISTORY: Remarkable for hypertension, history of TIA, history of CVA, hyperlipidemia, right bundle-branch block, PVCs. PAST SURGICAL HISTORY: Appendectomy in the past and the previously mentioned peripheral interventions. ALLERGIES: NO KNOWN DRUG ALLERGIES. MEDICATIONS: Aspirin 81 mg daily, metformin is on hold, duloxetine 60 mg daily, insulin, clonidine 0.1 mg at night, Plavix 75 mg daily, amlodipine 10 mg daily, hydrochlorothiazide 25 mg daily, benazepril 40 mg daily, atorvastatin 10 mg daily. The patient was not able to afford the Xarelto that was given for his peripheral arterial disease. PATIENT NAME: MICHAEL GAINES JR SOCIAL HISTORY: The patient quit smoking a few months ago. He denies alcohol or street drug use. FAMILY HISTORY: Positive for atherosclerotic cardiovascular disease. REVIEW OF SYSTEMS: Remarkable for the above in addition to decreased hearing, snoring, and the above-mentioned peripheral arterial disease symptoms. He has the previously mentioned TIA and stroke with balance problems. No acute GI or symptoms. PHYSICAL EXAMINATION: GENERAL: Reveals a pleasant middle-aged male, in no acute distress. VITAL SIGNS: Blood pressure 144/76, pulse 77 and regular, respiratory rate 16 and unlabored, temperature afebrile. HEENT: Head, atraumatic and normocephalic. Eyes ENT examination within normal for age. NECK: Supple. No jugular venous distention, bruits, or lymphadenopathy. Normal upstroke. LUNGS: Clear and resonant. HEART: Regular rate and rhythm. I/ systolic ejection murmur at the left lower sternal border. No gallops. ABDOMEN: Soft. No tenderness. No organomegaly. No masses or bruits. EXTREMITIES: 1+ distal pulses. No edema, cyanosis, or clubbing. NEUROLOGIC: Alert and oriented x3. The examination appears to be nonfocal. LABORATORY DATA: Pending. Noninvasive cardiovascular workup enclosed. IMPRESSION: This is a 61-year-old patient with known peripheral arterial disease and previous intervention on his right lower extremity, who has now more symptoms on the left lower extremity, in need of intervention. The recommendation is to proceed with abdominal and bilateral selective iliofemoral angiograms. The access will be from the right groin and we will most likely proceed with intervention on his left SFA. The risks and benefits of the planned procedures were discussed in detail with the patient and available family members and he is willing to proceed. Rest as per orders. Dictated By: Dorinda Li MD WT: HP:NITISH/ALICE/VICKY Conf#: [id number]/DID#: [id number] Authenticated and Edited by Dorinda Li MD On 10/01/21 4:37:59 PM at 0441 PATIENT NAME: MICHAEL GAINES JR
[2024-09-19] MEDS ORDERED: ONDANSETRON 4 MG/2 ML VIAL ONE ×2 (10:48→13:02)
[2024-09-19] MEDS ORDERED: NA CHLORIDE 0.9% 1,000 ML ONE (10:49)
[2024-09-19 11:44] LABS: Influenza A Ag Negative; Influenza B Ag Negative; SARS-CoV-2 Antigen Rapid Res Negative (Negative)
[2024-09-19 11:59] LABS: Absolute Lymphocytes (CBC) 0.8 K/uL (0.7-4.9); Absolute Monocytes 0.5 K/uL (0.1-1.3); Absolute Neutrophil 8.4 K/uL (1.8-8.0); Basophils % 0.5 % (0-1.3); Eosinophils % 0.2 % (0-4.4); Hematocrit 35.1 % (39.6-49.0); Hemoglobin 12.1 g/dL (13.6-17.9); Lymphocytes % 8.6 % (15.3-44.8); MCH 30.5 pg (27.0-35.0); MCHC 34.5 g/dL (32.0-36.0); MCV 88.5 fL (80-100); MPV 9.1 fL (7.6-11.3); Monocytes % 4.8 % (3.3-12.3); Neutrophils % 85.9 % (41.7-73.7); Nucleated Red Blood Cells % 0.2 % (0-0); Platelets 253 thou/uL (152-406); RBC Red Blood Cell Count 3.96 M/uL (4.33-5.43); Red Cell Distribution Width 13.8 % (12.1-15.2)
[2024-09-19 12:18] LABS: Albumin 3.6 g/dL (3.4-5.0); Albumin/Globulin Ratio 0.8 (1.1-1.8); Anion Gap 11.3 mEq/L (5.0-15.0); Bilirubin Total 0.9 mg/dL (0.2-1.0); Globulin 4.6 g/dL (2.3-3.5); Potassium 4.3 mEq/L (3.5-5.1); Protein, Total 8.2 g/dL (6.4-8.2); Troponin High Sensitivity 16.9 pg/mL (<58.9)
--- NOTE | 2024-09-19 12:20 | RAD REPORT ---
EXAMINATION: CT ABDOMEN AND PELVIS WITHOUT CONTRAST CLINICAL INDICATION: ABD PAIN TECHNIQUE: CT abdomen and pelvis was performed, without IV contrast, as per department protocol. Axia l, sagittal and coronal reconstructions were obtained. One or more of the following dose reduction techniques were used: Automated exposure control, adjustment of the mA and kV according to the patien t size, and iterative reconstruction. Unless otherwise specified, incidental findings do not require dedicated imaging follow-up. COMPARISON: No prior exam. FINDINGS: The lack of intravenous contrast limits the sensitivity of this exam for evaluation of solid visceral organs, vascular structures, and retroperitoneum. LOWER CHEST: The visualized lung bases are clear. Prominent thickening of the distal esophagus with s mall hiatal hernia. LIVER:Normal in size and contour. No focal lesion. Grossly unremarkable gallbladder. SPLEEN: Normal size. No focal lesion. PANCREAS: No mass, ductal dilation, or chano-pancreatic fluid. ADRENALS: Normal; no mass. KIDNEYS AND URETERS: Normal size and contour. No hydronephrosis. URINARY BLADDER: Normal contour. GASTROINTESTINAL TRACT: No evidence of bowel obstruction, significant free fluid, free air or abscess . Moderate stool retention in the colon. APPENDIX: Appendix surgically absent. LYMPH NODES: No lymphadenopathy. MUSCULOSKELETAL: No acute or suspicious osseous abnormality. ADDITIONAL FINDINGS: Bilateral iliac stents. IMPRESSION: No acute or concerning abnormalities in the abdomen or pelvis, with evaluation limited by lack of IV contrast. Significant thickening of the distal esophagus with small hiatal hernia. Suggest upper endoscopy asse ssment if not recently performed.
[2024-09-19 13:27] LABS: Specific Gravity 1.012 (1.005-1.030); Sqamous Epithelial None Seen /HPF (None Seen); Urine Bacteria None Seen /HPF (<20); Urine Bilirubin NEGATIVE (Negative); Urine Blood Trace (Negative); Urine Clarity Clear (Clear); Urine Color Colorless (Yellow); Urine Culture Reflex Order NOT NEEDED; Urine Glucose 4+ (Negative); Urine Ketones 1+ (Negative); Urine Microscopic Reflex YN ORDER UMIC; Urine Nitrite NEGATIVE (Negative); Urine Protein 2+ (Negative); Urine RBC <5 /HPF (None Seen); Urine Urobilinogen Normal (Normal); Urine WBC <5 /HPF (<5); Urine pH 6.5 (5.0-7.0)
--- NOTE | 2024-09-19 14:20 | ER ---
Nurse's Notes [facility] Name: Michael Gaines Jr Age: 64 yrs Sex: Male : 1960 Arrival Date: 09/19/2024 Time: 10:23 Bed 8 Private MD: Diagnosis: Nausea with vomiting, unspecified Presentation: 09/19 10:35 Chief complaint: Patient states: abd pain, N/V that began yesterday. Coronavirus ss screen: Client denies travel out of the [place] in the last 14 days. Ebola Screen: Patient denies exposure to infectious person. Patient denies travel to an Ebola-affected area in the 21 days before illness onset. Initial Sepsis Screen: Does the patient meet any 2 criteria? No. Patient's initial sepsis screen is negative. Does the patient have a suspected source of infection? No. Patient's initial sepsis screen is negative. Risk Assessment: Do you want to hurt yourself or someone else? Patient reports no desire to harm self or others. Onset of symptoms was September 18, 2024. 10:35 Method Of Arrival: Ambulatory ss 10:35 Acuity: CRIS 3 ss Historical: - Allergies: 10:37 No Known Allergies; ss - PMHx: 10:37 CVA; diabetes mellitus; Hypertensive disorder; kidney disease; ss - PSHx: 10:37 Appendectomy; toe amputations; ss - Immunization history:: Client reports receiving the 2nd dose of the Covid vaccine. - Infectious Disease History:: Denies. - Social history:: Smoking status: Patient denies any tobacco usage or history of. - Family history:: not pertinent. Screenin:36 [facility] ED Fall Risk Assessment (Adult) History of falling in the last 3 months, ph including since admission No falls in past 3 months (0 pts) Confusion or Disorientation No (0 pts) Intoxicated or Sedated No (0 pts) Impaired Gait No (0 pts) Mobility Assist Device Used No (0 pt) Altered Elimination No (0 pt) Score/Fall Risk Level 0 - 2 = Low Risk Oriented to surroundings, Maintained a safe environment, Hourly rounding (assess needs \\T\\ fall precautionary measures) done. Abuse screen: Denies threats or abuse. Denies injuries from another. Nutritional screening: No deficits noted. Tuberculosis screening: No symptoms or risk factors identified. Assessment: 11:36 Pain: Complains of pain in abdomen Quality of pain is described as "SORE". Neuro: Level ph of Consciousness is awake, alert, obeys commands, Oriented to person, place, time, situation. Cardiovascular: Capillary refill < 3 seconds in bilateral fingers Patient's skin is warm and dry. Respiratory: Airway is patent is compromised Respiratory effort is even, unlabored, Respiratory pattern is regular, symmetrical. GI: Bowel sounds present X 4 quads. Abd is soft and non tender X 4 quads. Reports nausea, vomiting. Derm: Skin is pink, warm \\T\\ dry. 12:51 Reassessment: Patient appears in no apparent distress at this time. Patient and/or ph family updated on plan of care and expected duration. Pain level reassessed. Patient is alert, oriented x 3, equal unlabored respirations, skin warm/dry/pink. Patient states feeling better. Vital Signs: 10:35 BP 193 / 72; Pulse 92; Resp 17; Temp 98(O); Pulse Ox 97% on R/A; Weight 79.38 kg; ss Height 5 ft. 7 in. ; Pain 0/10; 12:51 BP 190 / 67; Pulse 85; Resp 18; Pulse Ox 97% on R/A; ph 13:48 BP 171 / 73; Pulse 88; Resp 18; Pulse Ox 99% on R/A; ph 14:35 BP 168 / 72; Pulse 84; Resp 18; Temp 97.8; Pulse Ox 98% on R/A; ph 10:35 Body Mass Index 27.41 (79.38 kg, 170.18 cm) ss 10:35 Pain Scale: Adult ss Vitals: 12:51 Cardiac Rhythm Assessment Sinus rhythm. ph ED Course: 10:28 Patient arrived in ED. cj3 10:29 John Ness MD is Attending Physician. rt 10:30 Shivani Machado, BRISEYDA is Primary Nurse. ph 10:37 Triage completed. ss 10:37 Arm band placed on right wrist. ss 11:35 Missed attempt(s): 22 gauge in left antecubital area. Bleeding controlled, band aid ph applied, catheter tip intact. Missed attempt(s): 22 gauge in left wrist. Bleeding controlled, band aid applied, catheter tip intact. 11:36 Patient has correct armband on for positive identification. Bed in low position. Call ph light in reach. Side rails up X2. Pulse ox on. NIBP on. 11:43 CBC with Diff Sent. ph 11:43 CMP Sent. ph 11:43 Lipase Sent. ph 11:46 CT Abd/Pelvis - Without Contrast In Process Unspecified. EDMS 11:50 Accessed peripheral vein via ultrasound, utilizing dynamic ultrasound technique using ss 20G Nexia IV catheter ,sterile technique, per hospital protocol. Clean \\T\\ dry. Dressing intact. Good blood return. Flushes easily. R AC. 14:35 No provider procedures requiring assistance completed. IV discontinued, intact, ph bleeding controlled, No redness/swelling at site. Pressure dressing applied. Administered Medications: 11:43 Drug: Ondansetron IVP 4 mg IVP once; over 2 minutes Route: IVP; Site: right forearm; ph 12:43 Follow up: Response: No adverse reaction; Nausea is decreased ph 11:43 Drug: NS 0.9% IV 1000 ml IV at 1 bolus Per protocol; to be given as a bolus over 60 ph minutes Route: IV; Rate: 1 bolus; Site: right forearm; 12:54 Follow up: Response: No adverse reaction; IV Status: Completed infusion; IV Intake: ph 1000ml 13:10 Drug: Ondansetron IVP 4 mg IVP once; over 2 minutes Route: IVP; Site: left forearm; me1 13:30 Follow up: Response: No adverse reaction; Nausea is decreased ph Medication: 11:38 VIS not applicable for this client. ph Intake: 12:54 IV: 1000ml; Total: 1000ml. ph Outcome: 14:19 Discharge ordered by MD. rt 14:35 Discharged to home via wheelchair, with significant other, ph 14:35 Condition: good 14:35 Discharge instructions given to patient, significant other, Instructed on discharge instructions, follow up and referral plans. medication usage, Demonstrated understanding of instructions, follow-up care, medications, Prescriptions given X 1, 14:36 Patient left the ED. ph Signatures: Dispatcher [employer] EDJulia Herrera RN RN ss Hall, Patricia, RN RN John Diaz MD MD rt Leila Silver RN RN me1 Nadia Davis 3
--- NOTE | 2024-09-19 14:20 | EDPHYS ---
Physician Documentation [facility] Name: Michael Gaines Jr Age: 64 yrs Sex: Male : 1960 Arrival Date: 09/19/2024 Time: 10:23 Bed 8 Private MD: ED Physician John Ness HPI: 09/19 10:31 This 64 yrs old Male presents to ER via Unassigned with complaints of rt Abdominal Pain, Vomiting, General Weakness. 10:45 Patient presents to the ED with nausea, vomiting, generalized abdominal pain starting rt last night. Patient's reports that the pain is due to the retching. The patient denies chest pain, acute complaints, symptoms are moderate in severity, no other aggravating or alleviating factors.. Historical: - Allergies: 10:37 No Known Allergies; ss - PMHx: 10:37 CVA; diabetes mellitus; Hypertensive disorder; kidney disease; ss - PSHx: 10:37 Appendectomy; toe amputations; ss - Immunization history:: Client reports receiving the 2nd dose of the Covid vaccine. - Infectious Disease History:: Denies. - Social history:: Smoking status: Patient denies any tobacco usage or history of. - Family history:: not pertinent. ROS: 10:45 Constitutional: Negative for fever, chills, and weight loss, Cardiovascular: Negative rt for chest pain, palpitations, and edema, Respiratory: Negative for shortness of breath, cough, wheezing, and pleuritic chest pain, MS/Extremity: Negative for injury and deformity, Skin: Negative for injury, rash, and discoloration, Neuro: Negative for headache, weakness, numbness, tingling, and seizure, 10:45 Abdomen/GI: Positive for abdominal pain, nausea and vomiting, Exam: 10:45 Constitutional: This is a well developed, well nourished patient who is awake, alert, rt and in no acute distress. Head/Face: Normocephalic, atraumatic. Chest/axilla: Normal chest wall appearance and motion. Nontender with no deformity. No lesions are appreciated. Cardiovascular: Regular rate and rhythm with a normal S1 and S2. No gallops, murmurs, or rubs. Normal PMI, no JVD. No pulse deficits. Respiratory: Lungs have equal breath sounds bilaterally, clear to auscultation and percussion. No rales, rhonchi or wheezes noted. No increased work of breathing, no retractions or nasal flaring. Abdomen/GI: Soft, non-tender, with normal bowel sounds. No distension or tympany. No guarding or rebound. No evidence of tenderness throughout. Skin: Warm, dry with normal turgor. Normal color with no rashes, no lesions, and no evidence of cellulitis. MS/ Extremity: Pulses equal, no cyanosis. Neurovascular intact. Full, normal range of motion. Neuro: Awake and alert, GCS 15, oriented to person, place, time, and situation. Cranial nerves II-XII grossly intact. Motor strength 5/5 in all extremities. Sensory grossly intact. Cerebellar exam normal. Normal gait. 12:33 ECG was reviewed by the Attending Physician. rt Vital Signs: 10:35 BP 193 / 72; Pulse 92; Resp 17; Temp 98(O); Pulse Ox 97% on R/A; Weight 79.38 kg; ss Height 5 ft. 7 in. ; Pain 0/10; 12:51 BP 190 / 67; Pulse 85; Resp 18; Pulse Ox 97% on R/A; ph 13:48 BP 171 / 73; Pulse 88; Resp 18; Pulse Ox 99% on R/A; ph 14:35 BP 168 / 72; Pulse 84; Resp 18; Temp 97.8; Pulse Ox 98% on R/A; ph 10:35 Body Mass Index 27.41 (79.38 kg, 170.18 cm) ss 10:35 Pain Scale: Adult ss MDM: 10:38 Medical Screening Exam initiated rt 17:31 Differential diagnosis: Bowel obstruction, nausea, vomiting, gastroenteritis. Data rt reviewed: vital signs, nurses notes, lab test result(s), radiologic studies. Consideration of Admission/Observation Escalation of care including admission/observation considered. Symptoms improved with Zofran, patient is desirous of discharge, return precautions discussed.. I considered the following discharge prescriptions or medication management in the emergency department Medications were administered in the Emergency Department. See MAR. Independent interpretation of the following test(s) in the Emergency Department CT Scan: My interpretation is No bowel obstruction syndrome interpretation of CT scan images. Care significantly affected by the following chronic conditions: Diabetes. Counseling: I had a detailed discussion with the patient and/or guardian regarding the historical points, exam findings, and any diagnostic results supporting the discharge/admit diagnosis, lab results, radiology results, the need for outpatient follow up, to return to the emergency department if symptoms worsen or persist or if there are any questions or concerns that arise at home. Response to treatment: the patient's symptoms have markedly improved after treatment. 09/19 10:45 Order name: CBC with Diff; Complete Time: 12:20 rt 09/19 10:45 Order name: CMP; Complete Time: 12:20 rt 09/19 10:45 Order name: Lipase; Complete Time: 12:20 rt 09/19 10:45 Order name: Urinalysis w/ reflexes; Complete Time: 13:29 rt 09/19 10:45 Order name: COVID-19 Ag + Flu A+B Ag; Complete Time: 12:06 rt 09/19 10:45 Order name: Troponin High Sensitivity; Complete Time: 12:20 rt 09/19 10:45 Order name: CT Abd/Pelvis - Without Contrast; Complete Time: 12:20 rt 09/19 10:45 Order name: IV Saline Lock; Complete Time: 11:43 rt 09/19 10:45 Order name: Labs collected and sent; Complete Time: 11:43 rt 09/19 10:45 Order name: EKG - Nurse/Tech; Complete Time: 12:43 rt EC:33 Rate is 84 beats/min. Rhythm is regular, Normal Sinus Rhythm with No ectopy. Left axis rt deviation noted. ND interval is normal. QRS interval is normal. QT interval is normal. No Q waves. T waves are Normal. Administered Medications: 11:43 Drug: Ondansetron IVP 4 mg IVP once; over 2 minutes Route: IVP; Site: right forearm; ph 12:43 Follow up: Response: No adverse reaction; Nausea is decreased ph 11:43 Drug: NS 0.9% IV 1000 ml IV at 1 bolus Per protocol; to be given as a bolus over 60 ph minutes Route: IV; Rate: 1 bolus; Site: right forearm; 12:54 Follow up: Response: No adverse reaction; IV Status: Completed infusion; IV Intake: ph 1000ml 13:10 Drug: Ondansetron IVP 4 mg IVP once; over 2 minutes Route: IVP; Site: left forearm; me1 13:30 Follow up: Response: No adverse reaction; Nausea is decreased ph Disposition Summary: 09/19/24 14:19 Discharge Ordered Notes: Location: Home rt Problem: new rt Symptoms: have improved rt Condition: Stable rt Diagnosis - Nausea with vomiting, unspecified rt Followup: rt - With: Private Physician - When: 2 - 3 days - Reason: Discharge Instructions: - Discharge Summary Sheet rt - Nausea and Vomiting, Adult rt Forms: - Medication Reconciliation Form rt - Antibiotic Education rt - Prescription Opioid Use rt - Patient Portal Instructions rt - Leadership Thank You Letter rt Prescriptions: - ondansetron 4 mg Oral Tablet,disintegrating - take 1 tablet ORAL route every 6 hours as needed for nausea; 15 tablet; rt Refills: 0, Product Selection Permitted Signatures: Dispatcher [employer] EDMS Julia Nuno RN RN Shivani Machado RN RN ph John Ness MD MD rt Leila Silver RN RN [email or web address] Corrections: (The following items were deleted from the chart) 10:46 10:46 CBC+H.LAB.BRZ ordered. EDMS EDMS 10:46 10:46 COMPREHENSIVE METABOLIC PANEL+C.LAB.BRZ ordered. EDMS EDMS 10:46 10:46 LIPASE+C.LAB.BRZ ordered. EDMS EDMS 10:46 10:46 Urinalysis+U.LAB.BRZ ordered. EDMS EDMS 10:46 10:46 COVID-19 Ag + Flu A+B Ag+I.LAB.BRZ ordered. EDMS EDMS 10:46 10:46 Troponin High Sensitivity+C.LAB.BRZ ordered. EDMS EDMS 10:46 10:46 Abdomen Pelvis Wo Con+CT.RAD.BRZ ordered. EDMS EDMS
[2024-09-19 14:43] VITALS: BP 168/72; TEMP 97.8; O2SAT 98
--- NOTE | 2024-09-23 11:34 | EKG ---
Test Date: 2024-09-19 Test Time: 12:12:10 Home Service Director: PH MEASUREMENT RESULTS: Intervals: Rate: 84 HI: 168 QRSD: 78 QT: 382 QTc: 451 [place]: P: 70 HI: 168 QRS: -30 T: 28 INTERPRETIVE STATEMENTS: Normal sinus rhythm Left axis deviation Nonspecific ST abnormality Abnormal ECG Compared to ECG 05/07/2024 18:32:49 Left-axis deviation now present ST (T wave) deviation now present T-wave abnormality no longer present Possible ischemia no longer present Electronically Signed On 09-23-24 11:24:17 CDT by Raza Foley
== END 2024-09-19 14:36 | disposition home or self-care (01) ==
LOC: ER 10:23
DX: R11.2 Nausea with vomiting, unspecified (principal); R10.84 Generalized abdominal pain; Z11.52 Encounter for screening for COVID-19
CPT/HCPCS: 93005; 85025; 81001; 36415; 84484; 83690; 80053; 74176; 99285; 87428; J2405 ×2; J7030

== ENCOUNTER 2024-09-19 15:46 | Inpatient (IN) | payer OTHER ==
--- OUTSIDE RECORDS SUMMARY | 2024-09-19 15:51 | XMS REPORT | Continuity of Care Document ---
Author Name Unknown Address [address] [place] [address] [facility] Address [address] [place] [address] Care Team Providers Care Roller Print Tender Name Role Phone Humaira Pal NP Primary Care Physician [phone] Chandan Branch Attending Clinician Unavail able Dorinda Li Attending Clinician Unavailable JULITO MAYBERRY Attending Clinician Unavail able Julito Mayberry MD Attending Clinician Calos Morris Admitting Clinician Unavailable Abrahan Ballard Admitting Clinician Unavailable Payers Payer Name Policy Type Policy Number Effective Date Expirati on Date Source A[employer] MEDICARE ADVANTAGE Medicare [id number] 2022 00:00:00 Problems Condition Name Condition Details Condition Category Status Onset Date Resolution Date Last Treatment Date Treating Clinician Comments Source Anemia Anemia Disease Active 2023-06 00:00: 00 Roscoe Ware Epic Cerebrovas cular accident (CVA) Cerebrovas cular accident (CVA) Disease Active 2023-06 00:00: 00 Roscoe Brizuela Depression Depression Disease Active 2023-06 00:00: 00 Roscoe Brizuela Dysphagia Dysphagia Disease Active 2023-06 00:00: 00 Roscoe Brizuela Hyperlipid emia Hyperlipid emia Disease Active 2023-06 00:00: 00 Roscoe Brizuela Pseudobulb ar affect Pseudobulb ar affect Disease Active 2023-06 00:00: 00 Roscoe Brizuela Hypertensi on Hypertensi on Disease Active 2023-06 00:00: 00 Roscoe Brizuela PVD (periphera l vascular disease) PVD (periphera l vascular disease) Disease Active 2023-06 00:00: 00 Roscoe Brizuela Syncope Syncope Disease Active 2023-06 00:00: 00 Roscoe Brizuela Type 2 diabetes mellitus Type 2 [...] foot limited to breakdown of skin Problem [place] [employer] 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 breakdown of skin 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 breakdown of skin Problem [place] Special [employer] Type 2 diabetes mellitus with peripheral angiopathy Type 2 diabetes mellitus with diabetic peripheral angiopathy without gangrene, without long-term current use of insulin Problem [place] [facility] Absence of toe Acquired absence of other right toe(s) [facility] [id number] 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 to breakdown of skin Problem [place] 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 Problem [place] [employer] [employer] 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) 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) Disease Resolve d 2023-06 1-06 00:00: 00 2024-05-01 00:00:00 2024-05-01 10:07:13 Roscoe triana [place] Proteinuri a Proteinuri a Disease Resolve [...] 00:00: 00 2024-05-01 00:00:00 2024-05-01 10:07:13 Roscoe kamilah [place] Allergies, Adverse Reactions, Alerts Allergy Name Allergy Type Status Severity Reaction(s) Onset Date Inactive Date Treating Clinician Comments Source No Known Allergie s DA Active U 02-15 00:00: 00 [facility] levoflox acin DA Active MS VOMITING 12-19 00:00: 00 [facility] No Known Allergie s DA Active U 6 00:00: 00 [facility] Social History Social Habit Start Date Stop Date Quantity Comments Source Gender identity 2023-09-16 12:24:42 Identifies as male gender (finding) [facility] [place] [facility] Sexual orientation [facility] [place] [facility] Sex Assigned At [facility] History of tobacco use Passive smoker [facility] Anne Fogarty milton [facility] Tobacco use and exposure 2024-05-01 00:00:00 2024-05-01 00:00:00 Smokeless [facility] Alcoholic beverage intake 2024-05-01 00:00:00 2024-05-01 00:00:00 Lifetime non-drinker (finding) [facility] History of Social function 2024-05-01 00:00:2024-05-01 00:00:00 [facility] Smoking Status Start Date Stop Date Source Ex-smoker 2024-05-01 00:00:00 2024-05-01 00:00:00 M [facility] Never Smoker [place] [facility] Medications Ordered Medication Name Filled [...] DAILY, # 90 cap, 3 Refill(s), Pharmacy: [facility] Pharmacy Arp, 171.45, cm, 07/12/23 10:18:00 EXTRUSION BENDER, Height, 81.364, kg, 07/12/23 10:18:00 EXTRUSION BENDER, Weight Roscoe Brizuela cloNIDine (Catapres) 0.1 MG [...] = 1 cap, PO, Daily, 0 [facility]ill(s) [facility] aspirin EC 81 MG EC tablet aspirin EC 81 MG EC tablet 08-23 00:00: 00 Yes 81mg 81 mg = 1 tab, PO, Daily, # 90 tab, 3 Refill(s) [facility] NON FORMULARY NON FORMULARY 08-23 00:00: 00 Yes basagalar [facility] clopidogrel (Plavix) 75 MG tablet clopidogrel (Plavix) 75 MG tablet 08-23 00:00: 00 Yes 75mg 75 mg = 1 tab, PO, Daily, # 30 tab, 0 Refill(s) [facility] benazepril (Lotensin) 40 MG tablet benazepril (Lotensin) 40 MG tablet 08-23 00:00: 00 Yes 40mg 40 mg = 1 tab, PO, Daily, # 30 tab, 0 Refill(s) [facility] Carvedilol 6.25 MG Carvedilol 6.25 MG No Carvedilol 6.25 MG Cefpodoxime Proxetil 200 MG Cefpodoxime Proxetil 200 MG No Cefpodoxim e Proxetil 200 MG amLODIPine Besylate 10 MG amLODIPine Besylate 10 MG No amLODIPine Besylate 10 MG Vital Signs Vital Name Observation Time Observation Value Comments S ource Systolic blood pressure 2024-05-01 10:16:00 137 mm[Hg] [facility] Diastolic blood pressure 2024-05-01 10:16:00 49 mm[Hg] [facility] Heart rate 2024-05-01 10:16:00 51 /min [facility] Body temperature 2024-05-01 10:16:00 36.44 Christina [facility] Respiratory rate 2024-05-01 10:16:00 16 /min [facility] Body height 2024-05-01 10:16:00 170.2 cm [facility] Body weight 2024-05-01 10:16:00 81.647 kg [facility] BMI 2024-05-01 10:16:00 28.19 kg/m2 Clydealbert Ware [facility] Oxygen saturation in Arterial blood by Pulse oximetry 2024-05-01 10:16:00 99 /min [facility] Systolic blood pressure 2024-05-01 10:16:00 137 mm[Hg] [facility] Diastolic blood pressure 2024-05-01 10:16:00 49 mm[Hg] [facility] Heart rate 2024-05-01 10:16:00 51 /min [facility] Body temperature 2024-05-01 10:16:00 36.44 Christina [facility] Respiratory rate 2024-05-01 10:16:00 16 /min [facility] Body height 2024-05-01 10:16:00 170.2 cm [facility] Body weight 2024-05-01 10:16:00 81.647 kg [facility] BMI 2024-05-01 10:16:00 28.19 kg/m2 [facility] Oxygen saturation in Arterial blood by Pulse oximetry 2024-05-01 10:16:00 99 /min [facility] Encounters Start Date/Time End Date/Time Encounter Type Admission Type Attending [facility] Care Facility Care Department Encounter ID Source 2024 09:32:02 Outpatient Chandan Branch [facility] [id number] [facility] 2021-12-11 06:00:00 Inpatient Dorinda Rachel [facility] [id number] [facility] 2024-05-01 10:06:15 2024-05-01 10:36:22 Outpatient JULITO MAYBERRY DanieleOUT EOUT [id number] [facility] 2024-05-01 10:15:00 2024-05-01 10:30:00 Office Visit Julito Mayberry [id number] Roscoe Santoyoann [facility] 2024-05-01 10:15:00 2024-05-01 10:15:00 Outpatient LUIGI LUCIA [id number] Roscoe Santoyoann 2024-02-17 06:32:00 2024-02-18 14:01:00 Inpatient Dorinda Rachel HCAPM MEDI.01 [id number] [facility] 2024 00:00:00 2024 00:00:00 Office Visit- Est Pt.- Level 4 CLS CLS [id number] [facility] 2024 00:00:00 2024 00:00:00 (TEL) CLS CLS [id number] [facility] 2023-07-12 09:30:00 2023-07-12 09:30:00 Outpatient MHIE MHIE [id number] Roscoe triana Chaz 2022-10-20 10:30:00 2022-10-20 10:30:00 Outpatient MHIE MHIE [id number] Roscoe triana Chaz 2022-04-21 10:30:00 2022-04-21 10:30:00 Outpatient MHIE MHIE [id number] Roscoe triana Chaz 2021-12-18 04:44:00 2021-12-18 04:44:00 Outpatient EL DabDorinda hankins [facility] SURG [id number] [facility] 2021-12-18 04:44:00 2021-12-18 04:44:00 Outpatient Dorinda Rachel HCAWU HCAWU [id number] [facility] 2021-10-30 05:03:00 2021-10-30 05:03:00 Outpatient EL Dorinda Li HCAWU HCAWU [id number] [facility] 2021-10-30 05:03:00 2021-10-30 05:03:00 Outpatient EL Dabaghi Salim [facility]G [id number] [facility] 2021-10-20 11:45:00 2021-10-20 11:45:00 Outpatient MHIE MHIE [id number] Charismaramakrishna triana Chaz 2021-10-02 04:46:00 2021-10-02 04:46:00 Outpatient EL Dabagberto Salim [facility]G [id number] [facility] 2021-09-02 10:15:00 2021-09-02 10:15:00 Outpatient MHIE MHIE [id number] Memramakrishna triana [place] 2021-07-22 10:30:00 2021-07-22 10:30:00 Outpatient MHIE MHIE [id number] Memramakrishna triana [place] 2020-09-29 09:00:00 2020-09-29 09:00:00 Outpatient MHIE MHIE [id number] Memoria kamilah SantoyoChaz 2020-09-29 09:00:00 2020-09-29 09:00:00 Outpatient MHIE MHIE [id number] Memramakrishna triana [place] 2020-02-26 10:00:00 2020-02-26 10:00:00 Outpatient MHIE MHIE [id number] Memramakrishna triana [place] 2020-01-15 08:45:00 2020-01-15 08:45:00 Outpatient MHIE MHIE [id number] Memramakrishna triana Chaz 2019-10-03 10:00:00 2019-10-03 10:00:00 Outpatient MHIE MHIE [id number] Memoria kamilah Chaz 2019-09-12 09:30:00 2019-09-12 09:30:00 Outpatient MHIE MHIE [id number] Roscoe triana [place] 2019-04-25 09:15:00 2019-04-25 09:15:00 Outpatient MHIE MHIE [id number] Roscoe triana Chaz 2018-07-26 09:00:00 2018-07-26 09:00:00 Outpatient MHIE MHIE [id number] Memramakrishna triana Chaz 2018-06-05 09:15:00 2018-06-05 09:15:00 Outpatient MHIE MHIE [id number] Memramakrishna triana Chaz 2018-01-16 09:15:00 2018-01-16 09:15:00 Outpatient MHIE MHIE [id number] Memramakrishna triana Chaz 2017-08-23 09:45:00 2017-08-23 09:45:00 Outpatient MHIE MHIE [id number] Charismaramakrishna kamilah Ware Results Test Description Test Time Test Comments Results Result Co mments Source CBC W/AUTO [id number] 04:17:00* Test Item Value Reference Range Interpretation [...] NRBC#) 0.0 K/mm3 0.00-0.01 N COAGULATION TIME [id number] 11:37:00* Test Item Value Reference Range Interpretation Comme nts COAGULATION TIME ACTIVATED ( test code = ACT) 346 SEC 110-182 H COMPREHENSIVE METABOLIC [id number] 07:20:00* Test Item Value Reference Range Interpretation [...] code = HDL) 47 MG/DL See_Comment L [Breezeplay] The system which generated this result transmitted reference range: 60-. The reference range was not used to interpret this result as normal/abnormal. NON-HDL CHOLESTEROL (test code = NHDL) 67 mg/dL <130 LIPOPROTEIN LDL (test code = LDL) 55 MG/DL 0-129 N LDL/HDL (test code = LDL/HDL) 1.17 Ratio See_Comment L [Breezeplay] The system which generated this result transmitted reference range: 1.48-3.22 Avg. The reference range was not used to interpret this result as normal/abnormal. [id number] 07:20:00* Test Item Value Reference Range Interpretation Comme nts MAGNESIUM (test code = MAG) 2.5 MG/DL 1.8-2.4 H PROTHROMBIN [id number] 07:11:00* Test Item Value Reference Range Interpretation [...] Infarction (to prevent recurrent infarct). CBC W/AUTO [id number] 07:04:00* Test Item Value Reference Range Interpretation [...] code = NRBC#) 0.0 K/mm3 0.00-0.01 N [id number] 09:48:00* Test Item Value Reference Range Interpretation Comme nts ACT-ISTAT (test code = ACTI) 208 SEC 74-137 H BASIC METABOLIC [id number] 05:47:00* Test Item Value Reference Range Interpretation [...] mg/dL HIGH.........160-189 mg/dL VERY HIGH.........>/= 190 mg/dL [id number] 05:47:00* Test Item Value Reference Range Interpretation Comme nts MAGNESIUM (test code = MAG) 2.6 MG/DL 1.6-2.3 H PROTHROMBIN [id number] 05:35:00* Test Item Value Reference Range Interpretation [...] recurrent systemic embolism. 3.0 - 4.5 PTT [id number] 05:35:00* Test Item Value Reference Range Interpretation Comme nts PTT ACTIVATED (test code = APTT) 35.8 SECONDS 26.2-35.4 H CBC W/AUTO [id number] 05:24:00* Test Item Value Reference Range Interpretation [...] K/mm3 0.0-0.1 N COVID 19 Asymptomatic IH [id number] 05:12:00* Test Item Value Reference Range Interpretation [...] amount of virus (antigen) in the sample." [id number] 12:19:00* Test Item Value Reference Range Interpretation Comme nts ACT-ISTAT (test code = ACTI) 178 SEC 74-137 H [id number] 09:14:00* Test Item Value Reference Range Interpretation Comme nts ACT-ISTAT (test code = ACTI) 249 SEC 74-137 H BASIC METABOLIC [id number] 06:16:00* Test Item Value Reference Range Interpretation [...] mg/dL HIGH.........160-189 mg/dL VERY HIGH.........>/= 190 mg/dL [id number] 06:16:00* Test Item Value Reference Range Interpretation Comme nts MAGNESIUM (test code = MAG) 2.8 MG/DL 1.6-2.3 H COVID 19 Asymptomatic IH [id number] 06:14:00* Test Item Value Reference Range Interpretation [...] of virus (antigen) in the sample." PROTHROMBIN [id number] 05:59:00* Test Item Value Reference Range Interpretation [...] recurrent systemic embolism. 3.0 - 4.5 PTT [id number] 05:59:00* Test Item Value Reference Range Interpretation Comme nts PTT ACTIVATED (test code = APTT) 36.6 SECONDS 26.2-35.4 H CBC W/AUTO [id number] 05:47:00* Test Item Value Reference Range Interpretation [...] NRBC#) 0.00 K/mm3 0.0-0.1 N GLUCOSE BEDSIDE [id number] 11:48:00* Test Item Value Reference Range Interpretation Comme [facility] GLUCOSE BEDSIDE TESTING (roxanna t code = GLUBED) 144 MG/DL 60-99 H [id number] 10:52:00* Test Item Value Reference Range Interpretation Comme nts ACT-ISTAT (test code = ACTI) 279 SEC 74-137 H BASIC METABOLIC [id number] 07:38:00* Test Item Value Reference Range Interpretation [...] mg/dL HIGH.........160-189 mg/dL VERY HIGH.........>/= 190 mg/dL [id number] 07:38:00* Test Item Value Reference Range Interpretation Comme nts MAGNESIUM (test code = MAG) 2.6 MG/DL 1.6-2.3 H PROTHROMBIN [id number] 07:13:00* Test Item Value Reference Range Interpretation [...] recurrent systemic embolism. 3.0 - 4.5 PTT [id number] 07:13:00* Test Item Value Reference Range Interpretation Comme nts PTT ACTIVATED (test code = APTT) 36.1 SECONDS 26.2-35.4 H CBC W/AUTO [id number] 07:03:00* Test Item Value Reference Range Interpretation [...] K/mm3 0.0-0.1 N COVID 19 Asymptomatic IH [id number] 05:42:00* Test Item Value Reference Range Interpretation [...] Notes Date/Time Note Provider Source 2024-05-01 10:35:42 [facility]2024-11-06 10:35:42* Julito Mayberry MD - 05/01/2024 10:15 AM EXTRUSION BENDER History of Present Illness Cerebrovascular Accident Lost [...] crush or chew. Stable, continue present medications. 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, unspecified blood vessel laterality (HCC) - Primary Pseudobulbar affect [id number] 10:35:42 [id number] 10:23:00 [facility] Hospitalist Discharge Summary REPORT#:[id number] REPORT STATUS: Signed REPORT INITIALIZATION DATE:02/18/24 TIME:1023 PATIENT: MICHAEL GAINES JR UNIT #: [id number] ROOM/BED: [place] [address] : [birth year] AGE: 64 SEX: M ATTEND: [...] Home/Self Care Additional Discharge Routines: PCP Follow-Up, Human Resources Talent Manager Follow-Up Diet: Resume Home Diet/Feeds Discharge management: greater than 30 mins Follow-up Appointments PCP follow-up: PCP: Calos Morris MD PCP follow up timeframe: In 1-2 weeks Consulting provider 1: Provider 1: Dorinda Li MD Cardiology Specialty: CardiologyInterventional Consult follow up timeframe: In 1-2 weeks at [address] [facility] #: [id number] END OF REPORT [id number] 05:50:[id number] [facility] [address] [place] [address] PATIENT NAME: MICHAEL GAINES JR ADMIT DATE: 02/17/24 ACCOUNT NO: [id number] ROOM NO: [facility] AGE: 64 REPORT TYPE: eELECTROCARDIOGRAM SEX: M ADMITTING PHYSICIAN: Abrahan Ballard MD ATTENDING PHYSICIAN: Dorinda Li MD Order: [id number] Test Reason : CAD/Hyperkalemia Test Date/Time Stamp: [...] 0727 PATIENT NAME: MICHAEL GAINES JR 12:47:00 [facility] ([facility]) Hospitalist History Physical REPORT#:[id number] REPORT STATUS: Signed REPORT INITIALIZATION DATE:02/17/24 TIME:1247 PATIENT: MICHAEL GAINES JR UNIT #: [id number] ROOM/BED: [place] [address] : 58 AGE: 64 SEX: M ATTEND: Dorinda Li MD Cardiology ADM AUTHOR: Abrahan Ballard MD REPT SERVICE DT/TIME: 02/17/24 4452 * ALL edits or amendments must be [...] % (Auto) (20.5 - 51.1 %) 21.5 Mckean % (Auto) (1.7 - 9.3 %) 8.7 Eos % (Auto) (0.0 - 6.0 %) 2.0 Baso % (Auto) (0.0 - 2.0 %) 0.7 Neut # (Auto) (1.8 - 7.6 K/mm3) 5.8 Lymph # (Auto) (0.6 - 3.0 K/mm3) 1.9 Mckean # (Auto) (0.2 - 1.5 K/mm3) 0.8 [...] prophylaxis Advanced directive full code at [address] [facility] #: [id number] END OF REPORT [id number]:10:[id number] [facility] [address] [place] [address] PATIENT NAME: MICHAEL GAINES JR ADMIT DATE: 02/17/24 ACCOUNT NO: [id number] ROOM NO: L.PO7 AGE: 64 REPORT TYPE: OPERATIVE REPORT SEX: M ADMITTING PHYSICIAN: Abrahan Ballard MD ATTENDING PHYSICIAN: Dorinda Li MD Cardiology OPERATION DATE: 02/17/2024 CARDIOVASCULAR PROCEDURE [...] 6. Closing device. SURGEON: Dorinda Li MD LAUNDRY AIDE: ESTIMATED BLOOD LOSS: Minimal. COMPLICATIONS: None. CONTRAST: [...] femoral artery area for local anesthesia. A 6-Macanese sheath was placed in the left common [...] with a Storq wire and using the DGIT NaviCross catheter. Then, I exchanged that for a V-18 wire and did a laser atherectomy [employer] 2 runs back and forth from beginning [...] Date Transcribed: 02/17/2024 18:16:59 SFD/EZE/RIP Receipt ID: [id number] Authenticated by Dorinda Li MD On 02/18/2024 07:13:45 AM at 0713 PATIENT NAME: MICHAEL GAINES JR 07:07:[id number] [place] [address] PATIENT NAME: MICHAEL GAINES JR ADMIT DATE: 02/17/24 ACCOUNT NO: [id number] ROOM NO: AGE: 64 REPORT TYPE: eELECTROCARDIOGRAM SEX: M ADMITTING PHYSICIAN: ATTENDING PHYSICIAN: Dorinda Li MD Order: [id number] Test Reason : PRE OP Test Date/Time [...] by:DORINDA LI at 0827 PATIENT NAME: MICHAEL GAINES JR [id number]:46:[id number] [place] [address] PATIENT NAME: MICHAEL GAINES JR ADMIT DATE: ACCOUNT NO: [id number] ROOM NO: AGE: 64 REPORT TYPE: HISTORY AND PHYSICAL SEX: M ADMITTING PHYSICIAN: ATTENDING PHYSICIAN: Dorinda Li MD PATIENT NAME: MICHAEL GAINES JR ADMIT DATE:02/17/2024 ADMISSION DATE: 02/17/2024 07:00:00 ENERGY RATER: Dorinda Li MD. REASON FOR ADMISSION: Symptomatic [...] PATIENT NAME: MICHAEL GAINES JR Receipt ID: [id number] Authenticated and Edited by Dorinda Li MD On 02/17/24 6:18:33 AM at 0620 PATIENT NAME: MICHAEL GAINES JR 10:20:[id number] [place] [address] PATIENT NAME: MICHAEL GAINES JR ADMIT DATE: 12/18/21 ACCOUNT NO: [id number] ROOM NO: AGE: 61 REPORT TYPE: CARDIAC CATHETERIZATION REPORT SEX: M ADMITTING PHYSICIAN: ATTENDING PHYSICIAN:Dorinda Li MD Cardiology PROCEDURE DATE: 12/18/2021 ENERGY RATER: Dorinda Li M.D. INDICATION FOR THE PROCEDURE: Disabling claudications of the left lower extremity in a patient with known severe atherosclerotic cardiovascular disease and multiple previous interventions. TITLE OF THE PROCEDURE: 1. Abdominal and bilateral selective iliofemoral angiograms. 2. First order angiogram of the right lower extremity. 3. Third order angiogram of the left lower extremity. 4. CAP AND STUD MACHINE OPERATOR and stenting of a focal lesion of the left common femoral. 5. CAP AND STUD MACHINE OPERATOR of the left tibioperoneal trunk. 6. Sealing device. ESTIMATED BLOOD LOSS: Minimal. COMPLICATIONS: None. CONTRAST: 90 mL. ANESTHESIA: Conscious sedation with Versed and fentanyl and 1% lidocaine for local anesthesia. FINAL DIAGNOSES: Severe peripheral arterial disease; patent previously stented areas; patent previous PCI areas; new lesion in the left common femoral 75%, status post CAP AND STUD MACHINE OPERATOR and stenting; and tibioperoneal disease on the left, status post CAP AND STUD MACHINE OPERATOR and sealing device. PROCEDURE IN DETAIL: After informed consent, the patient was brought to the cardiac catheterization lab in a stable fasting nonsedated state. He was prepped and draped in the usual sterile fashion. After conscious sedation, 1% lidocaine was administered to the right common femoral artery area for local anesthesia. A 6-Macanese sheath was placed in the right common [...] before that using the pigtail with the [place] Advantage wire, I did selective third order [...] and then the tibioperoneal lesions received a [employer] [place] Emerge 3.0 x 30 that [...] By: Dorinda Li MD WT: CATH:DELGADO/ALICE/VICKY Conf#: [id number]/DID#: [id number] Authenticated by Dorinda Li MD On 12/18/2021 02:21:29 PM at 0221 PATIENT NAME: MICHAEL GAINES JR 05:54:[id number] [place] [id number] PATIENT NAME: MICHAEL GAINES JR ADMIT DATE: 12/18/21 ACCOUNT NO: [id number] ROOM NO: AGE: 61 REPORT TYPE: ELECTROCARDIOGRAM SEX: M ADMITTING PHYSICIAN: ATTENDING PHYSICIAN:Dorinda Li MD Cardiology Order: [id number] Test Reason : PRE-OP Test Date/Time Stamp: [...] at 0734 PATIENT NAME: MICHAEL GAINES JR 05:54:[id number] [address] PATIENT NAME: MICHAEL GAINES JR ADMIT DATE: 12/18/21 ACCOUNT NO: [id number] ROOM NO: AGE: 61 REPORT TYPE: ELECTROCARDIOGRAM SEX: M ADMITTING PHYSICIAN: ATTENDING PHYSICIAN:Dorinda Li MD Cardiology Order: [id number] Test Reason : PRE-OP Test Date/Time Stamp: [...] at 1225 PATIENT NAME: MICHAEL GAINES JR 07:40:[id number] [place] [address] PATIENT NAME: MICHAEL GAINES JR ADMIT DATE: ACCOUNT NO: [id number] ROOM NO: AGE: 61 REPORT TYPE: HISTORY [...] ILLNESS: Michael is a 61-year-old patient of [employer] with known significant atherosclerotic cardiovascular disease, who was last at [facility] on 10/30/2021. The patient has had [...] By: Dorinda Li MD WT: HP:NITISH/ALICE/VICKY Conf#: [id number]/DID#: [id number] Authenticated and Edited by Dorinda Li MD On 12/10/21 4:26:42 PM at 0429 PATIENT NAME: MICHAEL GAINES JR 09:59:[id number] [place] [address] PATIENT NAME: MICHAEL GAINES JR ADMIT DATE: 10/30/21 ACCOUNT NO: [id number] ROOM NO: AGE: 61 REPORT TYPE: CARDIAC CATHETERIZATION REPORT SEX: M ADMITTING PHYSICIAN: ATTENDING PHYSICIAN:Dorinda Li MD PROCEDURE DATE: 10/30/2021 CARDIOVASCULAR PROCEDURE ENERGY RATER: Dorinda Li MD INDICATION FOR THE PROCEDURE: Severe peripheral artery disease with leg pains and abnormal ABIs, restenosis on the right SFA. TITLE OF THE PROCEDURE: Selective bilateral iliofemoral angiograms, third order on the right, first order on the left, CAP AND STUD MACHINE OPERATOR and stenting of the right external iliac, [...] femoral artery area for local anesthesia. A 6-Macanese sheath was put in the left common [...] proceeded with the Viper wire using the Bristol catheter. Initially, we used the [place] Advantage wire to get the up and [...] patient tolerated the procedure well. Dictated By: Dorinda Li MD WT: CATH:DELGADO/ALICE/VICKY Conf#: [id number]/DID#: [id number] Authenticated by Dorinda Li MD On 10/30/2021 01:23:58 PM at 0123 PATIENT NAME: MICHAEL GAINES JR [id number] [place] [id number] PATIENT NAME: MICHAEL GAINES JR ADMIT DATE: 10/30/21 ACCOUNT NO: [id number] ROOM NO: AGE: 61 REPORT TYPE: ELECTROCARDIOGRAM SEX: M ADMITTING PHYSICIAN: ATTENDING PHYSICIAN:Dorinda Li MD Order: [id number] Test Reason : PRE-OP Test Date/Time Stamp: [...] at 1317 PATIENT NAME: MICHAEL GAINES JR [id number] [address] PATIENT NAME: MICHAEL GAINES JR ADMIT DATE: ACCOUNT NO: [id number] ROOM NO: AGE: 61 REPORT TYPE: HISTORY AND PHYSICAL SEX: M ADMITTING PHYSICIAN: ATTENDING PHYSICIAN:Dorinda Li MD PATIENT NAME: MICHAEL GAINES JR ADMIT DATE:10/30/2021 ADMISSION DATE: 10/30/2021 ENERGY RATER: Dorinda Li MD REASON FOR ADMISSION: Staged intervention on his right lower extremity in a patient with known severe atherosclerotic cardiovascular disease and recent intervention on his left lower extremity. HISTORY OF PRESENT ILLNESS: Michael is a 61-year-old patient with known atherosclerotic cardiovascular disease, who was last at [facility] on 10/02/2021. He had symptomatic peripheral [...] By: Dorinda Li MD WT: HP:NITISH/ALICE/VICKY Conf#: [id number]/DID#: [id number] Authenticated and Edited by Dorinda Li MD On 10/29/21 5:04:51 PM at 0507 PATIENT NAME: MICHAEL GAINES JR [id number] [address] PATIENT NAME: MICHAEL GAINES JR ADMIT DATE: 10/02/21 ACCOUNT NO: [id number] ROOM NO: AGE: 61 REPORT TYPE: CARDIAC CATHETERIZATION REPORT SEX: M ADMITTING PHYSICIAN: ATTENDING PHYSICIAN:Dorinda Li MD PROCEDURE DATE: 10/02/2021 ENERGY RATER: Dorinda Li M.D. INDICATION FOR THE PROCEDURE: Leg pain, peripheral arterial disease. TITLE OF THE PROCEDURE: 1. Abdominal and bilateral selective iliofemoral angiograms. 2. First order angiogram with right lower extremity. 3. Third order angiogram of the left lower extremity. 4. Drug-eluting stent of the left external iliac. 5. 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 6. Sealing [...] femoral artery area for local anesthesia. A 6-Macanese sheath was placed in the right common [...] By: Dorinda Li MD WT: CATH:DELGADO/ALICE/VICKY Conf#: [id number]/DID#: [id number] Authenticated by Dorinda Li MD On 10/02/2021 12:42:48 PM at 1242 PATIENT NAME: MICHAEL GAINES JR [id number]:[id number] [place] [id number] PATIENT NAME: MICHAEL GAINES JR ADMIT DATE: 10/02/21 ACCOUNT NO: [id number] ROOM NO: AGE: 61 REPORT TYPE: ELECTROCARDIOGRAM SEX: M ADMITTING PHYSICIAN: ATTENDING PHYSICIAN:Dorinda Li MD Order: [id number] Test Reason : PRE-OP Test Date/Time Stamp: [...] at 1256 PATIENT NAME: MICHAEL GAINES JR [id number]:[id number] [address] PATIENT NAME: MICHAEL GAINES JR ADMIT DATE: ACCOUNT NO: [id number] ROOM NO: AGE: 61 REPORT TYPE: HISTORY AND PHYSICAL SEX: M ADMITTING PHYSICIAN: ATTENDING PHYSICIAN:Dorinda Li MD PATIENT NAME: MICHAEL GAINES JR ADMIT DATE:10/02/2021 ADMISSION DATE: 10/02/2021 ADMISSION HISTORY AND PHYSICAL ENERGY RATER: Dorinda Li MD REASON FOR ADMISSION: Symptomatic [...] By: Dorinda Li MD WT: HP:NITISH/ALICE/VICKY Conf#: [id number]/DID#: [id number] Authenticated and Edited by Dorinda Li MD On 10/01/21 4:37:59 PM at 0441 PATIENT NAME: MICHAEL GAINES JR
--- NOTE | 2024-09-19 16:59 | EDPHYS ---
Physician Documentation [facility] Name: Michael Gaines Jr Age: 64 yrs Sex: Male : 1960 Arrival Date: 09/19/2024 Time: 15:46 Bed 15 Private MD: ED Physician John Ness HPI: 09/19 18:44 This 64 yrs old Male presents to ER via Ambulatory with complaints of rt Abdominal Pain, Vomiting. 18:44 Patient was seen in the ED earlier today for nausea, vomiting, abdominal pain. Got rt better after some Zofran, had essentially negative workup, went home, however, needed after getting home, had worsening abdominal pain, nausea, vomiting. Denies other acute complaints at this time, symptoms are mild in severity, no other aggravating alleviating factors.. Historical: - Allergies: 15:56 No Known Allergies; ll1 - PMHx: 15:56 diabetes mellitus; Hypertensive disorder; kidney disease; CVA; ll1 - PSHx: 15:56 Appendectomy; toe amputations; ll1 - Immunization history:: Adult Immunizations up to date. - Social history:: Smoking status: Patient denies any tobacco usage or history of. - Family history:: not pertinent. ROS: 18:44 Constitutional: Negative for fever, chills, and weight loss, Cardiovascular: Negative rt for chest pain, palpitations, and edema, Respiratory: Negative for shortness of breath, cough, wheezing, and pleuritic chest pain, MS/Extremity: Negative for injury and deformity, Skin: Negative for injury, rash, and discoloration, Neuro: Negative for headache, weakness, numbness, tingling, and seizure, 18:44 Abdomen/GI: Positive for abdominal pain, nausea and vomiting, Exam: 18:44 Constitutional: This is a well developed, well nourished patient who is awake, alert, rt and in no acute distress. Head/Face: Normocephalic, atraumatic. Chest/axilla: Normal chest wall appearance and motion. Nontender with no deformity. No lesions are appreciated. Cardiovascular: Regular rate and rhythm with a normal S1 and S2. No gallops, murmurs, or rubs. Normal PMI, no JVD. No pulse deficits. Respiratory: Lungs have equal breath sounds bilaterally, clear to auscultation and percussion. No rales, rhonchi or wheezes noted. No increased work of breathing, no retractions or nasal flaring. Abdomen/GI: Soft, non-tender, with normal bowel sounds. No distension or tympany. No guarding or rebound. No evidence of tenderness throughout. Skin: Warm, dry with normal turgor. Normal color with no rashes, no lesions, and no evidence of cellulitis. MS/ Extremity: Pulses equal, no cyanosis. Neurovascular intact. Full, normal range of motion. Neuro: Awake and alert, GCS 15, oriented to person, place, time, and situation. Cranial nerves II-XII grossly intact. Motor strength 5/5 in all extremities. Sensory grossly intact. Cerebellar exam normal. Normal gait. Vital Signs: 15:57 BP 145 / 81; Pulse 97; Resp 18; Temp 98.6; Pulse Ox 100% ; Weight 79.38 kg; Height 5 ll1 ft. 7 in. ; Pain 4/10; 17:00 BP 144 / 82; Pulse 80; Resp 18; Pulse Ox 97% on R/A; kj2 15:57 Body Mass Index 27.41 (79.38 kg, 170.18 cm) ll1 15:57 Pain Scale: Adult ll1 MDM: 16:00 Medical Screening Exam initiated rt 18:44 Differential diagnosis: Abdominal pain, nausea, vomiting, gastroenteritis, rt gastroparesis. Data reviewed: vital signs, nurses notes. Consideration of Admission/Observation Patient was admitted/placed on observation. Management of patient was discussed with the following: Hospitalist: Agrees to admit. I considered the following discharge prescriptions or medication management in the emergency department Medications were administered in the Emergency Department. See MAR. Test considered but Not performed: Other Details Patient just had full workup done less than 3 hours prior to arrival, do not believe that further workup is indicated at this time.. Care significantly affected by the following chronic conditions: Diabetes. Counseling: I had a detailed discussion with the patient and/or guardian regarding the historical points, exam findings, and any diagnostic results supporting the discharge/admit diagnosis, the need for further work-up and treatment in the hospital. Response to treatment: the patient's symptoms have mildly improved after treatment. 09/19 17:36 Order name: CBC with Automated Diff EDMS 09/19 17:36 Order name: CBC with Automated Diff EDMS 09/19 17:36 Order name: CBC with Automated Diff EDMS 09/19 17:36 Order name: CBC with Automated Diff EDMS 09/19 17:36 Order name: CBC with Automated Diff EDMS 09/19 17:36 Order name: Comprehensive Metabolic Panel EDMS 09/19 17:36 Order name: Comprehensive Metabolic Panel EDMS 09/19 17:36 Order name: Comprehensive Metabolic Panel EDMS 09/19 17:36 Order name: Comprehensive Metabolic Panel EDMS 09/19 17:36 Order name: Comprehensive Metabolic Panel EDMS 09/19 17:36 Order name: Glucose, Ancillary Testing EDMS 09/20 00:34 Order name: Glucose, Ancillary Testing EDMS 09/20 11:58 Order name: Glucose, Ancillary Testing EDMS 09/19 16:55 Order name: Accucheck; Complete Time: 17:27 rt Administered Medications: 18:08 Drug: Promethazine IVP 25 mg IVP once Route: IVP; Site: left antecubital; kj2 09/20 00:20 Follow up: Response: No adverse reaction kj2 Disposition Summary: 09/19/24 16:58 Hospitalization Ordered Notes: Hospitalization Status: Observation rt Provider: Abdi Avila rt Condition: Stable rt Problem: an ongoing problem rt Symptoms: are unchanged rt Bed/Room Type: Standard rt Location: Telemetry/MedSurg (observation)(09/20/24 11:38) ty Room Assignment: 223(09/20/24 11:38) ty Diagnosis - Intractable nausea and vomiting rt Forms: - Medication Reconciliation Form rt - SBAR form rt - Leadership Thank You Letter rt Signatures: Dispatcher [employer] Sarah Archibald RN RN ll1 Do Morfin RN RN vc1 John Ness MD MD rt Samuel Morgan Krystal, RN RN kj2 Corrections: (The following items were deleted from the chart) 09/19 20:20 16:58 Telemetry/MedSurg (observation) rt vc1 20:20 16:58 rt vc1 09/20 11:38 09/19 20:20 [facility] ER HOLD vc1 ty 09/20 11:38 09/19 20:20 ERHOLD- vc1 ty
--- NOTE | 2024-09-19 16:59 | ER ---
Nurse's Notes [facility] Name: Michael Gaines Jr Age: 64 yrs Sex: Male : 1960 Arrival Date: 09/19/2024 Time: 15:46 Bed 15 Private MD: Diagnosis: Intractable nausea and vomiting Presentation: 09/19 15:57 Chief complaint: Patient states: Abdominal pain with N/V continued at home. Coronavirus ll1 screen: Client denies travel out of the [place] in the last 14 days. At this time, the client does not indicate any symptoms associated with coronavirus-19. Ebola Screen: Patient denies travel to an Ebola-affected area in the 21 days before illness onset. Initial Sepsis Screen: Does the patient meet any 2 criteria? No. Patient's initial sepsis screen is negative. Does the patient have a suspected source of infection? No. Patient's initial sepsis screen is negative. Risk Assessment: Do you want to hurt yourself or someone else? Patient reports no desire to harm self or others. Onset of symptoms was September 18, 2024. 15:57 Method Of Arrival: Ambulatory ll1 15:57 Acuity: CRIS 3 ll1 Triage Assessment: 16:02 General: Appears uncomfortable, Behavior is calm, cooperative, appropriate for age. ll1 Pain: Complains of pain in abdomen. Neuro: Reports weakness. GI: Reports upper abdominal pain, nausea, vomiting. Historical: - Allergies: 15:56 No Known Allergies; ll1 - PMHx: 15:56 diabetes mellitus; Hypertensive disorder; kidney disease; CVA; ll1 - PSHx: 15:56 Appendectomy; toe amputations; ll1 - Immunization history:: Adult Immunizations up to date. - Social history:: Smoking status: Patient denies any tobacco usage or history of. - Family history:: not pertinent. Screenin:00 [facility] ED Fall Risk Assessment (Adult) History of falling in the last 3 months, kj2 including since admission No falls in past 3 months (0 pts) Confusion or Disorientation No (0 pts) Intoxicated or Sedated No (0 pts) Impaired Gait Yes (1 pt) Mobility Assist Device Used Yes (1 pt) Altered Elimination No (0 pt) Score/Fall Risk Level 3 or more points = High Risk Maintained a safe environment, Educated pt \T\ family on fall prevention, incl call for assistance when getting out of bed, Hourly rounding (assess needs \T\ fall precautionary measures) done, Utilized family, sitter, or virtual on site coordinator as indicated. Abuse screen: Denies threats or abuse. Denies injuries from another. Nutritional screening: No deficits noted. Tuberculosis screening: No symptoms or risk factors identified. Assessment: 17:00 General: Appears in no apparent distress. Behavior is calm, cooperative. Pain: kj2 Complains of pain in abdomen Pain currently is 4 out of 10 on a pain scale. Neuro: Level of Consciousness is awake, alert, obeys commands, Oriented to person, place, time, situation. Cardiovascular: Patient's skin is warm and dry. Respiratory: Airway is patent Respiratory effort is unlabored. : No signs and/or symptoms were reported regarding the genitourinary system. Vital Signs: 15:57 BP 145 / 81; Pulse 97; Resp 18; Temp 98.6; Pulse Ox 100% ; Weight 79.38 kg; Height 5 ll1 ft. 7 in. ; Pain 4/10; 17:00 BP 144 / 82; Pulse 80; Resp 18; Pulse Ox 97% on R/A; kj2 15:57 Body Mass Index 27.41 (79.38 kg, 170.18 cm) ll1 15:57 Pain Scale: Adult ll1 ED Course: 15:48 Patient arrived in ED. im 15:49 John Ness MD is Attending Physician. rt 15:56 Arm band placed on. ll1 15:58 Triage completed. ll1 16:24 Patient placed in an exam room, on a stretcher. ll1 16:48 Dione Harris RN is Primary Nurse. kj2 16:58 Abdi Avila MD is Hospitalizing Provider. rt 17:00 Patient has correct armband on for positive identification. Bed in low position. Call kj2 light in reach. Side rails up X 1. Adult w/ patient. 17:00 Provided Education on: call light. kj2 17:00 No provider procedures requiring assistance completed. kj2 17:39 Accessed peripheral vein via ultrasound, utilizing dynamic ultrasound technique using ss 20G Nexia IV catheter ,sterile technique, per hospital protocol. Clean \T\ dry. Dressing intact. Good blood return. Flushes easily. L AC. 09/20 05:04 Inserted saline lock: 22 gauge in right forearm, using aseptic technique. Blood oe collected. Flushed with 10 mL NS. Administered Medications: 09/19 18:08 Drug: Promethazine IVP 25 mg IVP once Route: IVP; Site: left antecubital; kj2 09/20 00:20 Follow up: Response: No adverse reaction 2 Outcome: 09/19 16:58 Decision to Hospitalize by Provider. rt 17:[address] [facility] 09/20 13:33 Patient left the ED. jl7 Signatures: Julia Nuno, RN RN ss Chun Rhoades Jahala RN RN jl7 Sarah Trevino RN RN ll1 John Ness MD MD rt Giovanna Loya Krystal, BRISEYDA RN kj2
[2024-09-19] MEDS ORDERED: SODIUM CHLORIDE 0.9% 10ML INJ IV PRN (17:31)
[2024-09-19] MEDS ORDERED: D10W 125 ML IV PRN (17:43)
[2024-09-19] MEDS ORDERED: GLUCAGON 1 MG/VIAL IM PRN (17:43)
--- NOTE | 2024-09-19 17:43 | P.HP ---
Certification for Inpatient Patient admitted to: Inpatient With expected LOS: >2 Midnights Patient will require the following post-hospital care: None Practitioner: I am a practitioner with admitting privileges, knowledge of patient current condition, hospital course, and medical plan of care. Services: Services provided to patient in accordance with Admission requirements found in Title 42 Section 412.3 of the Code of Federal Regulations Patient History Date of Service: 09/19/24 History of Present Illness: 64-year-old male with history of CVA, insulin-dependent diabetes, hypertension, hyperlipidemia, CKD presents to the emergency department with chief complaint of nausea and vomiting. His symptoms began last night. Reports some mild upper abdominal pain as well which has resolved since. He was seen here in the emergency department earlier today and had labs and a CT scan. His labs were significant for a creatinine of 1.95 which is near his baseline, blood sugar of 223 foot blood cell count 9.8 CT abdomen pelvis without contrast was performed which showed no acute or concerning abnormalities in the abdomen or pelvis, significant thickening of the distal esophagus with small hiatal hernia, suggest upper endoscopy assessment if not recently performed. Allergies No Known Allergies Allergy (Unverified 08/05/21 13:47) Home Medications: Amlodipine [Norvasc*] 10 mg PO DAILY 08/04/21 Aspirin [Aspirin EC 81 MG] 81 mg PO DAILY 08/04/21 Atorvastatin Calcium 20 mg PO BEDTIME 08/04/21 Clopidogrel Bisulfate [Plavix] 75 mg PO DAILY 08/04/21 Duloxetine HCl 60 mg PO DAILY 08/04/21 Insulin Glargine,Hum.rec.anlog [Basaglar Kwikpen U-100] 25 unit SQ DAILY 08/04/21 cloNIDine HCL [Clonidine HCl] 0.1 mg PO BID 08/04/21 Benazepril HCl 5 mg PO BID 04/22/24 Carvedilol [Coreg] 6.25 mg PO BID 04/22/24 Cholecalciferol (Vitamin D3) [D3-5000] 1,000 units PO DAILY 04/22/24 Ferrous Sulfate [Ferrous Sulfate*] 325 mg PO DAILY 04/22/24 Na Bicarb Tab [Sodium Bicarb 325 MG Tab*] 325 mg PO BID 04/22/24 Hydrocodone 7.5/APAP 325 [[place] 7.5/325 mg*] 1 tab PO Q6H PRN #20 tab 04/25/24 Smz./Tmp. [Bactrim Ds 800 MG/160 MG] 1 tab PO BID #10 tab 04/25/24 - Past Medical/Surgical History Diabetic: No -: htn -: tia 06/20/2015 -: [facility] 06/20/15 -: Insulin-dependent diabetes -: CVA -: CKD -: appendectomy 07/18/15 Psychosocial/ Personal History: Lives at home with his - Social History Alcohol use: No CD- Drugs: No Caffeine use: Yes Place of Residence: Home Review of Systems 10-point ROS is otherwise unremarkable Gastrointestinal: Nausea, Vomiting Physical Examination - Physical Exam General: Alert, In no apparent distress, Oriented x3 HEENT: Atraumatic, PERRLA, Mucous membr. moist/pink, EOMI Neck: Supple, 2+ carotid pulse no bruit, No LAD, Without JVD or thyroid abnormality Respiratory: Clear to auscultation bilaterally, Normal air movement Cardiovascular: Regular rate/rhythm, Normal S1 S2 Gastrointestinal: Normal bowel sounds, No tenderness Musculoskeletal: No tenderness Integumentary: No rashes Neurological: Normal speech, Normal strength at 5/5 x4 extr, Normal affect Assessment and Plan - Plan Assessment: Intractable vomiting Distal esophageal thickening, small hiatal hernia DMII-insulin dependent Hypertension Hyperlipidemia PAD CKD Plan: Intractable vomiting Distal esophageal thickening, small hiatal hernia N.p.o., IVF Twice daily PPI Gastroenterology consult Denies ever having previous endoscopy or colonoscopy Denies frequent reflux symptoms DMII-insulin dependent ACHS Accu-Chek, sliding scale insulin Hypertension Hyperlipidemia PAD Continue medications when tolerating p.o./verified CKD At baseline, gentle IV fluids overnight, recheck chemistry in the morning DVT PPX: Heparin subcu Code status: Full Discharge Plan: Home Plan to discharge in: 48 Hours - Advance Directives Does patient have a Living Will: No Does patient have a Durable POA for Healthcare: No - Code Status/Comfort Care Code Status Assessed: Yes (Full code) Critical Care: No Time Spent Managing Pts Care (In Minutes): 65
[2024-09-19] MEDS: NA CHLORIDE 0.9% 1,000 ML IV SCH (18:00)
[2024-09-19] MEDS: INSULIN REGULAR (HUMAN) 100 UNIT/ML SQ SCH (18:00)
[2024-09-19] MEDS ORDERED: PROMETHAZINE INJ 25 MG/ML AMP ONE (18:02)
[2024-09-19] MEDS ORDERED: NA CHLORIDE 0.9% 0 ML ONE (19:29)
[2024-09-19] MEDS ORDERED: NA CHLORIDE 0.9% 1,000 ML ONE (19:34)
[2024-09-19] MEDS: PANTOPRAZOLE 40 MG INJ IVP SCH (21:00)
[2024-09-19] MEDS: HEPARIN 5000 UNIT/ML 1 ML VIAL SQ SCH (21:00)
[2024-09-19] MEDS ORDERED: ONDANSETRON 4 MG/2 ML VIAL ONE (21:44)
[2024-09-19] MEDS ORDERED: PANTOPRAZOLE 40 MG INJ ONE (21:44)
[2024-09-19] MEDS ORDERED: HEPARIN 5000 UNIT/ML 1 ML VIAL ONE (21:45)
[2024-09-19] MEDS: ONDANSETRON 4 MG/2 ML VIAL IV PRN (21:54)
[2024-09-19 22:40] VITALS: BMI 27.3
[2024-09-20 05:36] LABS: Absolute Monocytes 0.5 K/uL (0.1-1.3); Basophils % 0.3 % (0-1.3); Eosinophils % 0.1 % (0-4.4); Hematocrit 32.9 % (39.6-49.0); Hemoglobin 11.3 g/dL (13.6-17.9); Lymphocytes % 12.2 % (15.3-44.8); MCH 30.4 pg (27.0-35.0); MCHC 34.5 g/dL (32.0-36.0); MCV 88.2 fL (80-100); MPV 9.2 fL (7.6-11.3); Monocytes % 5.7 % (3.3-12.3); Neutrophils % 81.7 % (41.7-73.7); Platelets 253 thou/uL (152-406); RBC Red Blood Cell Count 3.72 M/uL (4.33-5.43); Red Cell Distribution Width 13.7 % (12.1-15.2)
[2024-09-20 05:38] LABS: Albumin 3.3 g/dL (3.4-5.0); Albumin/Globulin Ratio 0.8 (1.1-1.8); Anion Gap 12.9 mEq/L (5.0-15.0); Globulin 4.3 g/dL (2.3-3.5); Potassium 3.9 mEq/L (3.5-5.1); Protein, Total 7.6 g/dL (6.4-8.2)
[2024-09-20] MEDS: FERROUS SULFATE 325 MG TAB PO SCH (08:00)
[2024-09-20] MEDS ORDERED: CLOPIDOGREL 75 MG TABLET ONE (08:36)
[2024-09-20] MEDS ORDERED: PANTOPRAZOLE 40 MG INJ ONE (08:36)
[2024-09-20] MEDS ORDERED: ASPIRIN EC 81 MG TAB PO ONE (08:37)
[2024-09-20] MEDS ORDERED: HEPARIN 5000 UNIT/ML 1 ML VIAL ONE (08:37)
[2024-09-20] MEDS ORDERED: cloNIDine HCL 0.1 MG TAB ONE (08:37)
[2024-09-20] MEDS ORDERED: carvediloL 6.25 MG TAB ONE (08:37)
[2024-09-20] MEDS: cloNIDine HCL 0.1 MG TAB PO SCH ×2 (09:00→21:14)
[2024-09-20] MEDS: SODIUM BICARB 325 MG TAB PO SCH (09:00)
[2024-09-20] MEDS: CLOPIDOGREL 75 MG TABLET PO SCH (09:00)
[2024-09-20] MEDS: carvediloL 6.25 MG TAB PO SCH (09:00)
[2024-09-20] MEDS: ASPIRIN EC 81 MG TAB PO SCH (09:00)
[2024-09-20 13:40] VITALS: O2SAT 97
--- NOTE | 2024-09-20 15:21 | P.PN ---
Date of Service: 09/20/24 Subjective: No acute events overnight Tolerating clear liquids so far today ROS: 10 point ROS as noted above, otherwise negative Physical exam GEN: Alert, oriented, NAD HEENT: Normal conjunctiva, sclera anicteric CV: Regular rate and rhythm, no edema Pulm: Nonlabored respirations on room air ABD: Soft, nontender, nondistended MSK: No joint tenderness Integumentary: No rashes Neuro: Normal speech, normal affect Vitals reviewed Assessment: Intractable vomiting Distal esophageal thickening, small hiatal hernia DMII-insulin dependent Hypertension Hyperlipidemia PAD CKD Plan: Intractable vomiting Distal esophageal thickening, small hiatal hernia Clear liquids, adat Twice daily PPI Gastroenterology consult Denies ever having previous endoscopy or colonoscopy Denies frequent reflux symptoms Likely to need outpatient EGD DMII-insulin dependent ACHS Accu-Chek, sliding scale insulin Hypertension Hyperlipidemia PAD Continue medications when tolerating p.o./verified CKD At baseline, gentle IV fluids overnight, recheck chemistry in the morning DVT PPX: Heparin subcu Code status: Full Discharge Plan: Home Plan to discharge in: 48 Hours Time Spent Managing Pts Care (In Minutes): 35
[2024-09-20] MEDS: BENAZEPRIL 10 MG TAB PO SCH (21:18)
[2024-09-21 07:18] LABS: Absolute Eosinophils 0.1 K/uL (0-0.5); Absolute Monocytes 0.5 K/uL (0.1-1.3); Absolute Neutrophil 3.4 K/uL (1.8-8.0); Basophils % 0.8 % (0-1.3); Hematocrit 31.8 % (39.6-49.0); Hemoglobin 10.7 g/dL (13.6-17.9); Lymphocytes % 32.6 % (15.3-44.8); MCH 30.4 pg (27.0-35.0); MCHC 33.7 g/dL (32.0-36.0); MPV 8.4 fL (7.6-11.3); Monocytes % 8.5 % (3.3-12.3); Neutrophils % 56.1 % (41.7-73.7); Nucleated Red Blood Cells % 0.1 % (0-0); Platelets 265 thou/uL (152-406); RBC Red Blood Cell Count 3.53 M/uL (4.33-5.43)
[2024-09-21 07:32] LABS: Albumin/Globulin Ratio 0.8 (1.1-1.8); Anion Gap 10.6 mEq/L (5.0-15.0); Bilirubin Total 0.8 mg/dL (0.2-1.0); Globulin 3.7 g/dL (2.3-3.5); Potassium 3.6 mEq/L (3.5-5.1); Protein, Total 6.7 g/dL (6.4-8.2)
[2024-09-21] MEDS: INSULIN REGULAR (HUMAN) 100 UNIT/ML SQ SCH (11:30)
[2024-09-21 12:43] VITALS: BP 171/79; TEMP 98.6
--- NOTE | 2024-09-21 13:45 | P.DS ---
Admission Date: 09/19/24 Discharge Date: 09/21/24 Disposition: ROUTINE DISCHARGE Discharge Condition: GOOD Brief History of Present Illness: 64-year-old male with history of CVA, insulin-dependent diabetes, hypertension, hyperlipidemia, CKD presents to the emergency department with chief complaint of nausea and vomiting. His symptoms began last night. Reports some mild upper abdominal pain as well which has resolved since. He was seen here in the emerge ncy department earlier today and had labs and a CT scan. His labs were significant for a creatinine of 1.95 which is near his baseline, blood sugar of 223 foot blood cell count 9.8 CT abdomen pelvis without contrast was performed which showed no acute or concerning abnormalities in the abdomen or pelvis, significant thickening of the distal esophagus with small hiatal hernia, suggest upper endoscopy assessment if not recently performed. Hospital Course: Assessment: Intractable vomiting Distal esophageal thickening, small hiatal hernia DMII-insulin dependent Hypertension Hyperlipidemia PAD CKD Patient was admitted to the hospital for intractable nausea and vomiting. He had a CT scan performed which demonstrated significant thickening of the distal esophagus with a small hiatal hernia. It is suggested that the patient undergo endoscopy. Patient has done well during his hospitalization, his diet was advanced from clear liquids to a regular diet. His symptoms improved with Protonix and he is stable for discharge with outpatient follow-up with GI. Prescription for Protonix 40 mg by mouth twice daily sent to his pharmacy Follow-up closely in 1 to 2 weeks with GI to have endoscopy performed to evaluate the distal esophageal thickening-there is risk for malignancy with these findings Continue home medications as previously prescribed Avoid alcohol, spicy foods, large meals, eating too close to bed time Vital Signs/Physical Exam: Temp Pulse Resp BP Pulse Ox 98.6 F 67 16 171/79 H 98 09/21/24 12:00 09/21/24 12:00 09/21/24 12:00 09/21/24 12:09/21/24 12:00 General: Alert, In no apparent distress, Oriented x3 HEENT: Atraumatic, PERRLA Neck: Supple, JVD not distended Respiratory: Clear to auscultation bilaterally, Normal air movement Cardiovascular: Regular rate/rhythm, Normal S1 S2 Gastrointestinal: Normal bowel sounds, No tenderness Musculoskeletal: No tenderness Integumentary: No rashes Neurological: Normal speech, Normal affect Laboratory Data at Discharge: WBC 6.10 thou/uL (4.3-10.9) 09/21/24 06:51 Hgb 10.7 g/dL (13.6-17.9) L 09/21/24 06:51 Hct 31.8 % (39.6-49.0) L 09/21/24 06:51 Plt Count 265 thou/uL (152-406) 09/21/24 06:51 Sodium 146 mEq/L (136-145) H 09/21/24 06:51 Potassium 3.6 mEq/L (3.5-5.1) 09/21/24 06:51 BUN 25 mg/dL (7-18) H 09/21/24 06:51 Creatinine 1.96 mg/dL (0.70-1.30) H 09/21/24 06:51 Glucose 158 mg/dL (74-106) H 09/21/24 06:51 Total Bilirubin 0.8 mg/dL (0.2-1.0) 09/21/24 06:51 AST 11 U/L (15-37) L 09/21/24 06:51 ALT 15 U/L (16-61) L 09/21/24 06:51 Alkaline Phosphatase 106 U/L (45-117) 09/21/24 06:51 Home Medications: Amlodipine [Norvasc*] 10 mg PO DAILY 08/04/21 Aspirin [Aspirin EC 81 MG] 81 mg PO DAILY 08/04/21 Atorvastatin Calcium 20 mg PO BEDTIME 08/04/21 Clopidogrel Bisulfate [Plavix] 75 mg PO DAILY 08/04/21 Duloxetine HCl 60 mg PO DAILY 08/04/21 Insulin Glargine,Hum.rec.anlog [Basaglar Kwikpen U-100] 25 unit SQ DAILY 08/04/21 cloNIDine HCL [Clonidine HCl] 0.1 mg PO BID 08/04/21 Benazepril HCl 5 mg PO BID 04/22/24 Carvedilol [Coreg] 6.25 mg PO BID 04/22/24 Cholecalciferol (Vitamin D3) [D3-5000] 1,000 units PO DAILY 04/22/24 Ferrous Sulfate [Ferrous Sulfate*] 325 mg PO DAILY 04/22/24 Na Bicarb Tab [Sodium Bicarb 325 MG Tab*] 325 mg PO BID 04/22/24 Hydrocodone 7.5/APAP 325 [[place] 7.5/325 mg*] 1 tab PO Q6H PRN #20 tab 04/25/24 Pantoprazole [Protonix Tab] 40 mg PO BID #60 tab 09/21/24 New Medications: Pantoprazole [Protonix Tab] 40 mg PO BID #60 tab Physician Discharge Instructions: Patient was admitted to the hospital for intractable nausea and vomiting. He had a CT scan performed which demonstrated significant thickening of the distal esophagus with a small hiatal hernia. It is suggested that the patient undergo endoscopy. Patient has done well during his hospitalization, his diet was advanced from clear liquids to a regular diet. His symptoms improved with Protonix and he is stable for discharge with outpatient follow-up with GI. Prescription for Protonix 40 mg by mouth twice daily sent to his pharmacy Follow-up closely in 1 to 2 weeks with GI to have endoscopy performed to evaluate the distal esophageal thickening-there is risk for malignancy with these findings Continue home medications as previously prescribed Avoid alcohol, spicy foods, large meals, eating too close to bed time Diet: Boon Activity: Ad warren Followup: Humaira Pal [Primary Care Provider] - 1 Week Roberto Arce MD [OUTSIDE PHYSICIAN] - 1 Week Time spent managing pt's care (in minutes): 45
== END 2024-09-21 15:06 | disposition home or self-care (01) | DRG 392 ==
LOC: ER 15:46 → ERHOLD 17:31 → 2ND 09-20 12:27
PROVIDERS: ADMIT Hospitalist; ATTEND Hospitalist
DX: K22.89 Other specified disease of esophagus (principal); I12.9 Hypertensive chronic kidney disease with stage 1 through stage 4 chronic kidney disease, or unspecified chronic kidney disease; N18.9 Chronic kidney disease, unspecified; E11.22 Type 2 diabetes mellitus with diabetic chronic kidney disease; E11.51 Type 2 diabetes mellitus with diabetic peripheral angiopathy without gangrene; E78.5 Hyperlipidemia, unspecified; K44.9 Diaphragmatic hernia without obstruction or gangrene; Z79.4 Long term (current) use of insulin; Z79.82 Long term (current) use of aspirin; Z79.84 Long term (current) use of oral hypoglycemic drugs; Z79.02 Long term (current) use of antithrombotics/antiplatelets; Z90.49 Acquired absence of other specified parts of digestive tract; Z86.73 Personal history of transient ischemic attack (TIA), and cerebral infarction without residual deficits; Z79.899 Other long term (current) drug therapy
CPT/HCPCS: 36415; 80053; 82947; 85025; 96374; 99284; J1644; J2405; J2470; J2550; J7030

== ENCOUNTER 2024-10-01 12:24 | Emergency (ER) | payer OTHER ==
--- OUTSIDE RECORDS SUMMARY | 2024-10-01 12:29 | XMS REPORT | Continuity of Care Document ---
Author Name Unknown Address [address] [facility] [place] [address] [facility] Address [address] [facility] [place] [address] Care Team Providers Care Reagent Tender Name Role Phone Humaira Pal NP Primary Care Physician [phone] Chandan Branch Attending Clinician Unavail able Dorinda Li Attending Clinician Unavailable JULITO MAYBERRY Attending Clinician Unavail able Julito Mayberry MD Attending Clinician Calos Morris Admitting Clinician Unavailable Abrahan Ballard Admitting Clinician Unavailable Payers Payer Name Policy Type Policy Number Effective Date Expirati on Date Source AET[employer] MEDICARE ADVANTAGE Medicare [id number] 2022 00:00:00 Problems Condition Name Condition Details [...] foot limited to breakdown of skin Problem [place] [employer] 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 breakdown of skin 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 breakdown of skin Problem [employer] Type 2 diabetes mellitus with peripheral angiopathy Type 2 diabetes mellitus with diabetic peripheral angiopathy without gangrene, without long-term current use of insulin Problem [place] Absence of toe Acquired absence of other right toe(s) Problem [employer] [id number] 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 to breakdown of skin Problem [place] 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 Problem [place] [email or web address] ties Chronic osteomyeli tis involving ankle and [...] 00:00: 00 2024-05-01 00:00:00 2024-05-01 10:07:13 Roscoe Brizulea Acute appendicit is Acute appendicit is Disease Resolve d 01-08 00:00: 00 2024-05-01 00:00:00 2024-05-01 10:07:13 Roscoe triana [place] Brizuela Allergies, Adverse Reactions, Alerts Allergy Name Allergy Type Status Severity Reaction(s) Onset Date Inactive Date Treating Clinician Comments Source No Known Allergie s DA Active U 02-15 00:00: 00 [facility] levoflox acin DA Active [place] VOMITING 12-19 00:00: 00 [facility] No Known Allergie s DA Active U 6 00:00: 00 [facility] Social History Social Habit Start Date Stop Date Quantity Comments Source Gender identity 2023-09-16 12:24:42 Identifies as male gender (finding) [facility] History of tobacco use Passive smoker [facility] Sexual orientation [facility] Sex Assigned At [facility] Tobacco use and exposure 2024-05-01 00:00:00 2024-05-01 00:00:00 Smokeless tobacco non-user [facility] Alcoholic beverage intake 2024-05-01 00:00:00 2024-05-01 00:00:00 Lifetime non-drinker (finding) [facility] History of Social function 2024-05-01 00:00:2024-05-01 [facility]00:00 [facility] Smoking Status Start Date Stop Date Source Ex-smoker 2024-05-01 00:00:00 2024-05-01 00:00:00 M [facility] Never Smoker [place] [facility] Medications Ordered Medication Name Filled [...] DAILY, # 90 cap, 3 Refill(s), Pharmacy: [facility] [place], 171.45, cm, 07/12/23 10:18:00 BROOM BUNDLER, Height, 81.364, kg, 07/12/23 10:18:00 BROOM BUNDLER, Weight Roscoe Brizuela cloNIDine (Catapres) 0.1 MG [...] = 1 cap, PO, Daily, 0 Refill(s) [facility] aspirin EC 81 MG EC tablet aspirin EC 81 MG EC tablet 08-23 00:00: 00 Yes 81mg 81 mg = 1 tab, PO, Daily, # 90 tab, 3 Refill(s) [facility] NON FORMULARY NON FORMULARY 08-23 00:00: 00 Yes basagalar [facility] clopidogrel (Plavix) 75 MG tablet clopidogrel (Plavix) 75 MG tablet 08-23 00:00: 00 Yes 75mg 75 mg = 1 tab, PO, Daily, # 30 tab, 0 Refill(s) [facility] benazepril (Lotensin) 40 MG tablet benazepril (Lotensin) 40 MG tablet 08-23 00:00: 00 Yes 40mg 40 mg = 1 tab, PO, Daily, # 30 tab, 0 Refill(s) [facility] Carvedilol 6.25 MG Carvedilol 6.25 MG No Carvedilol 6.25 MG Cefpodoxime Proxetil 200 MG Cefpodoxime Proxetil 200 MG No Cefpodoxim e Proxetil 200 MG amLODIPine Besylate 10 MG amLODIPine Besylate 10 MG No amLODIPine Besylate 10 MG Vital Signs Vital Name Observation Time Observation Value Comments S ource Systolic blood pressure 2024-05-01 10:16:00 137 mm[Hg] [facility] Diastolic blood pressure 2024-05-01 10:16:00 49 mm[Hg] [facility] Heart rate 2024-05-01 10:16:00 51 /min [facility] Body temperature 2024-05-01 10:16:00 36.44 Christina [facility] Respiratory rate 2024-05-01 10:16:00 16 /min [facility] Body height 2024-05-01 10:16:00 170.2 cm [facility] Body weight 2024-05-01 10:16:00 81.647 kg [facility] BMI 2024-05-01 10:16:00 28.19 kg/m2 Clydealbert Ware [facility] Oxygen saturation in Arterial blood by Pulse oximetry 2024-05-01 10:16:00 99 /min [facility] Systolic blood pressure 2024-05-01 10:16:00 137 mm[Hg] [facility] Diastolic blood pressure 2024-05-01 10:16:00 49 mm[Hg] [facility] Heart rate 2024-05-01 10:16:00 51 /min [facility] Body temperature 2024-05-01 10:16:00 36.44 Christina [facility] Respiratory rate 2024-05-01 10:16:00 16 /min [facility] Body height 2024-05-01 10:16:00 170.2 cm [facility] Body weight 2024-05-01 10:16:00 81.647 kg [facility] BMI 2024-05-01 10:16:00 28.19 kg/m2 [facility] Oxygen saturation in Arterial blood by Pulse oximetry 2024-05-01 10:16:00 99 /min [facility] Encounters Start Date/Time End Date/Time Encounter Type Admission Type Attending [facility] Care Department Encounter ID Source 2024 09:32:02 Outpatient Chandan Branch [facility] [id number] [facility] 2021-12-11 06:00:00 [facility] [id number] [facility] 2024-05-01 10:06:15 2024-05-01 10:36:22 Outpatient JULITO MAYBERRY DanieleOUT EOUT [id number] [facility] 2024-05-01 10:15:00 2024-05-01 10:30:00 Office Visit Julito Mayberry [id number] Roscoe Santoyoann [facility] 2024-05-01 10:15:00 2024-05-01 10:15:00 Outpatient LUIGI LUCIA [id number] Roscoe Santoyoann 2024-02-17 06:32:00 2024-02-18 14:01:00 Inpatient Dorinda Rachel HCAPM MEDI.01 [id number] [facility] 2024 00:00:00 2024 00:00:00 Office Visit- Est Pt.- Level 4 CLS CLS [id number] [facility] 2024 00:00:00 2024 00:00:00 (TEL) CLS CLS [id number] [facility] 2023-07-12 09:30:00 2023-07-12 09:30:00 Outpatient MHIE MHIE [id number] Roscoe triana Chaz 2022-10-20 10:30:00 2022-10-20 10:30:00 Outpatient MHIE MHIE [id number] Roscoe triana Chaz 2022-04-21 10:30:00 2022-04-21 10:30:00 Outpatient MHIE MHIE [id number] Roscoe triana Chaz 2021-12-18 04:44:00 2021-12-18 04:44:00 Outpatient EL DabDorinda hankins [facility] [id number] [facility] 2021-12-18 04:44:00 2021-12-18 04:44:00 Outpatient Dorinda Rachel [facility] HCAWU [id number] [facility] 2021-10-30 05:03:00 2021-10-30 05:03:00 Outpatient EL Dorinda Li [facility] HCA[facility] [id number] [facility] 2021-10-30 05:03:00 2021-10-30 05:03:00 Outpatient EL Dabaghi Salim [facility] [id number] [facility] 2021-10-20 11:45:00 2021-10-20 11:45:00 Outpatient MHIE MHIE [id number] Charismaramakrishna triana Chaz 2021-10-02 04:46:00 2021-10-02 04:46:00 Outpatient EL Dabagberto Salim [facility] [id number] [facility] 2021-09-02 10:15:00 2021-09-02 10:15:00 Outpatient MHIE MHIE [id number] Memramakrishna triana Chaz 2021-07-22 10:30:00 2021-07-22 10:30:00 Outpatient MHIE MHIE [id number] Memramakrishna triana Courtland 2020-09-29 09:00:00 2020-09-29 09:00:00 Outpatient MHIE MHIE [id number] Memoria kamilah SantoyoChaz 2020-09-29 09:00:00 2020-09-29 09:00:00 Outpatient MHIE MHIE [id number] Memramakrishna triana [place] 2020-02-26 10:00:00 2020-02-26 10:00:00 Outpatient MHIE MHIE [id number] Memramakrishna triana Chaz 2020-01-15 08:45:00 2020-01-15 08:45:00 Outpatient MHIE MHIE [id number] Memramakrishna triana Chaz 2019-10-03 10:00:00 2019-10-03 10:00:00 Outpatient MHIE MHIE [id number] Memoria kamilah Chaz 2019-09-12 09:30:00 2019-09-12 09:30:00 Outpatient MHIE MHIE [id number] Roscoe triana [place] 2019-04-25 09:15:00 2019-04-25 09:15:00 Outpatient MHIE MHIE [id number] Roscoe triana Chaz 2018-07-26 09:00:00 2018-07-26 09:00:00 Outpatient MHIE MHIE [id number] Memramakrishna triana Chaz 2018-06-05 09:15:00 2018-06-05 09:15:00 Outpatient MHIE MHIE [id number] Memraamkrishna triana Chaz 2018-01-16 09:15:00 2018-01-16 09:15:00 Outpatient MHIE MHIE [id number] Memramakrishna triana Chaz 2017-08-23 09:45:00 2017-08-23 09:45:00 Outpatient MHIE MHIE [id number] Charismaramakrishna kamilah Ware Results Test Description Test Time Test Comments Results Result Co mments Source CBC W/AUTO [id number] 04:17:00* Test Item Value Reference Range Interpretation [...] NRBC#) 0.0 K/mm3 0.00-0.01 N COAGULATION TIME [id number] 11:37:00* Test Item Value Reference Range Interpretation Comme nts COAGULATION TIME ACTIVATED ( test code = ACT) 346 SEC 110-182 H COMPREHENSIVE METABOLIC [id number] 07:20:00* Test Item Value Reference Range Interpretation [...] code = HDL) 47 MG/DL See_Comment L [[employer]] The system which generated this result transmitted reference range: 60-. The reference range was not used to interpret this result as normal/abnormal. NON-HDL CHOLESTEROL (test code = NHDL) 67 mg/dL <130 LIPOPROTEIN LDL (test code = LDL) 55 MG/DL 0-129 N LDL/HDL (test code = LDL/HDL) 1.17 Ratio See_Comment L [[employer]] The system which generated this result transmitted reference range: 1.48-3.22 Avg. The reference range was not used to interpret this result as normal/abnormal. [id number] 07:20:00* Test Item Value Reference Range Interpretation Comme nts MAGNESIUM (test code = MAG) 2.5 MG/DL 1.8-2.4 H PROTHROMBIN [id number] 07:11:00* Test Item Value Reference Range Interpretation [...] Infarction (to prevent recurrent infarct). CBC W/AUTO [id number] 07:04:00* Test Item Value Reference Range Interpretation [...] code = NRBC#) 0.0 K/mm3 0.00-0.01 N [id number] 09:48:00* Test Item Value Reference Range Interpretation Comme nts ACT-ISTAT (test code = ACTI) 208 SEC 74-137 H BASIC METABOLIC [id number] 05:47:00* Test Item Value Reference Range Interpretation [...] mg/dL HIGH.........160-189 mg/dL VERY HIGH.........>/= 190 mg/dL [id number] 05:47:00* Test Item Value Reference Range Interpretation Comme nts MAGNESIUM (test code = MAG) 2.6 MG/DL 1.6-2.3 H PROTHROMBIN [id number] 05:35:00* Test Item Value Reference Range Interpretation [...] recurrent systemic embolism. 3.0 - 4.5 PTT [id number] 05:35:00* Test Item Value Reference Range Interpretation Comme nts PTT ACTIVATED (test code = APTT) 35.8 SECONDS 26.2-35.4 H CBC W/AUTO [id number] 05:24:00* Test Item Value Reference Range Interpretation [...] K/mm3 0.0-0.1 N COVID 19 Asymptomatic IH [id number] 05:12:00* Test Item Value Reference Range Interpretation [...] amount of virus (antigen) in the sample." [id number] 12:19:00* Test Item Value Reference Range Interpretation Comme nts ACT-ISTAT (test code = ACTI) 178 SEC 74-137 H [id number] 09:14:00* Test Item Value Reference Range Interpretation Comme nts ACT-ISTAT (test code = ACTI) 249 SEC 74-137 H BASIC METABOLIC [id number] 06:16:00* Test Item Value Reference Range Interpretation [...] mg/dL HIGH.........160-189 mg/dL VERY HIGH.........>/= 190 mg/dL [id number] 06:16:00* Test Item Value Reference Range Interpretation Comme nts MAGNESIUM (test code = MAG) 2.8 MG/DL 1.6-2.3 H COVID 19 Asymptomatic IH [id number] 06:14:00* Test Item Value Reference Range Interpretation [...] of virus (antigen) in the sample." PROTHROMBIN [id number] 05:59:00* Test Item Value Reference Range Interpretation [...] recurrent systemic embolism. 3.0 - 4.5 PTT [id number] 05:59:00* Test Item Value Reference Range Interpretation Comme nts PTT ACTIVATED (test code = APTT) 36.6 SECONDS 26.2-35.4 H CBC W/AUTO [id number] 05:47:00* Test Item Value Reference Range Interpretation [...] NRBC#) 0.00 K/mm3 0.0-0.1 N GLUCOSE BEDSIDE [id number] 11:48:00* Test Item Value Reference Range Interpretation Comme [facility] GLUCOSE BEDSIDE TESTING (roxanna t code = GLUBED) 144 MG/DL 60-99 H [id number] 10:52:00* Test Item Value Reference Range Interpretation Comme nts ACT-ISTAT (test code = ACTI) 279 SEC 74-137 H BASIC METABOLIC [id number] 07:38:00* Test Item Value Reference Range Interpretation [...] mg/dL HIGH.........160-189 mg/dL VERY HIGH.........>/= 190 mg/dL [id number] 07:38:00* Test Item Value Reference Range Interpretation Comme nts MAGNESIUM (test code = MAG) 2.6 MG/DL 1.6-2.3 H PROTHROMBIN [id number] 07:13:00* Test Item Value Reference Range Interpretation [...] recurrent systemic embolism. 3.0 - 4.5 PTT [id number] 07:13:00* Test Item Value Reference Range Interpretation Comme nts PTT ACTIVATED (test code = APTT) 36.1 SECONDS 26.2-35.4 H CBC W/AUTO [id number] 07:03:00* Test Item Value Reference Range Interpretation [...] K/mm3 0.0-0.1 N COVID 19 Asymptomatic IH [id number] 05:42:00* Test Item Value Reference Range Interpretation [...] Notes Date/Time Note Provider Source 2024-05-01 10:35:42 [facility]2024-11-06 10:35:42* Julito Mayberry MD - 05/01/2024 10:15 AM BROOM BUNDLER History of Present Illness Cerebrovascular Accident Lost [...] crush or chew. Stable, continue present medications. 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, unspecified blood vessel laterality (HCC) - Primary Pseudobulbar affect [id number] 10:35:42 [id number] 10:23:00 [facility] Hospitalist Discharge Summary REPORT#:[id number] REPORT STATUS: Signed REPORT INITIALIZATION DATE:02/18/24 TIME:1023 PATIENT: MICHAEL GAINES JR UNIT #: [id number] ROOM/BED: [place] [address] : 58 AGE: 64 SEX: M ATTEND: [...] Home/Self Care Additional Discharge Routines: PCP Follow-Up, Ambulance Paramedic Follow-Up Diet: Resume Home Diet/Feeds Discharge management: greater than 30 mins Follow-up Appointments PCP follow-up: PCP: Calos Morris MD PCP follow up timeframe: In 1-2 weeks Consulting provider 1: Provider 1: Dorinda Li MD Cardiology Specialty: CardiologyInterventional Consult follow up timeframe: In 1-2 weeks at [address] [facility] #: [id number] END OF REPORT [id number] 05:50:[id number] [facility] [address] [place] [address] PATIENT NAME: MICHAEL GAINES JR ADMIT DATE: 02/17/24 ACCOUNT NO: [id number] ROOM NO: [facility] AGE: 64 REPORT TYPE: eELECTROCARDIOGRAM SEX: M ADMITTING PHYSICIAN: Abrahan Ballard MD ATTENDING PHYSICIAN: Dorinda Li MD Order: [id number] Test Reason : CAD/Hyperkalemia Test Date/Time Stamp: [...] 0727 PATIENT NAME: MICHAEL GAINES JR 12:47:00 [facility] ([facility]) Hospitalist History Physical REPORT#:[id number] REPORT STATUS: Signed REPORT INITIALIZATION DATE:02/17/24 TIME:1247 PATIENT: MICHAEL GAINES JR UNIT #: [id number] ROOM/BED: [place] [address] : 58 AGE: 64 SEX: M ATTEND: Dorinda Li MD Cardiology ADM AUTHOR: Abrahan Ballard MD REPT SERVICE DT/TIME: 02/17/24 1384 * ALL edits or amendments must be [...] % (Auto) (20.5 - 51.1 %) 21.5 [place] % (Auto) (1.7 - 9.3 %) 8.7 Eos % (Auto) (0.0 - 6.0 %) 2.0 Baso % (Auto) (0.0 - 2.0 %) 0.7 Neut # (Auto) (1.8 - 7.6 K/mm3) 5.8 Lymph # (Auto) (0.6 - 3.0 K/mm3) 1.9 [place] # (Auto) (0.2 - 1.5 K/mm3) 0.8 [...] prophylaxis Advanced directive full code at [address] [facility] #: [id number] END OF REPORT [id number] 12:10:159313-1033 [facility] [address] [place] [address] PATIENT NAME: MICHAEL GAINES JR ADMIT DATE: 02/17/24 ACCOUNT NO: [id number] ROOM NO: L.PO7 AGE: 64 REPORT TYPE: [...] 6. Closing device. SURGEON: Dorinda Li MD FUSING LINE INSPECTOR: ESTIMATED BLOOD LOSS: Minimal. COMPLICATIONS: None. CONTRAST: [...] femoral artery area for local anesthesia. A 6-Monegasque sheath was placed in the left common [...] with a Storq wire and using the [employer] NaviCross catheter. Then, I exchanged that for a V-18 wire and did a laser atherectomy [employer] 2 runs back and forth from beginning [...] Date Transcribed: 02/17/2024 18:16:59 SFD/EZE/RIP Receipt ID: [id number] Authenticated by Dorinda Li MD On 02/18/2024 07:13:45 AM at 0713 PATIENT NAME: MICHAEL GAINES JR 07:07:[id number] [place] 7[address]84 PATIENT NAME: MICHAEL GAINES JR ADMIT DATE: 02/17/24 ACCOUNT NO: [id number] ROOM NO: AGE: 64 REPORT TYPE: eELECTROCARDIOGRAM SEX: M ADMITTING PHYSICIAN: ATTENDING PHYSICIAN: Dorinda Li MD Order: [id number] Test Reason : PRE OP Test Date/Time [...] at 0827 PATIENT NAME: MICHAEL GAINES JR 16:46:[id number] [place] 7[address]84 PATIENT NAME: MICHAEL GAINES JR ADMIT DATE: ACCOUNT NO: [id number] ROOM NO: AGE: 64 REPORT TYPE: HISTORY AND PHYSICAL SEX: M ADMITTING PHYSICIAN: ATTENDING PHYSICIAN: Dorinda Li MD PATIENT NAME: MICHAEL GAINES JR ADMIT DATE:02/17/2024 ADMISSION DATE: 02/17/2024 07:00:00 GREASE PACKER: Dorinda Li MD. REASON FOR ADMISSION: Symptomatic [...] PATIENT NAME: MICHAEL GAINES JR Receipt ID: [id number] Authenticated and Edited by Dorinda Li MD On 02/17/24 6:18:33 AM at 0620 PATIENT NAME: MICHAEL GAINES JR 10:20:[id number] [place] [address] PATIENT NAME: MICHAEL GAINES JR ADMIT DATE: 12/18/21 ACCOUNT NO: [id number] ROOM NO: AGE: 61 REPORT TYPE: CARDIAC CATHETERIZATION REPORT SEX: M ADMITTING PHYSICIAN: ATTENDING PHYSICIAN:Dorinda Li MD Cardiology PROCEDURE DATE: 12/18/2021 GREASE PACKER: Dorinda Li M.D. INDICATION FOR THE PROCEDURE: Disabling claudications of the left lower extremity in a patient with known severe atherosclerotic cardiovascular disease and multiple previous interventions. TITLE OF THE PROCEDURE: 1. Abdominal and bilateral selective iliofemoral angiograms. 2. First order angiogram of the right lower extremity. 3. Third order angiogram of the left lower extremity. 4. PRICING LEAD and stenting of a focal lesion of the left common femoral. 5. PRICING LEAD of the left tibioperoneal trunk. 6. Sealing device. ESTIMATED BLOOD LOSS: Minimal. COMPLICATIONS: None. CONTRAST: 90 mL. ANESTHESIA: Conscious sedation with Versed and fentanyl and 1% lidocaine for local anesthesia. FINAL DIAGNOSES: Severe peripheral arterial disease; patent previously stented areas; patent previous PCI areas; new lesion in the left common femoral 75%, status post PRICING LEAD and stenting; and tibioperoneal disease on the left, status post PRICING LEAD and sealing device. PROCEDURE IN DETAIL: After informed consent, the patient was brought to the cardiac catheterization lab in a stable fasting nonsedated state. He was prepped and draped in the usual sterile fashion. After conscious sedation, 1% lidocaine was administered to the right common femoral artery area for local anesthesia. A 6-Monegasque sheath was placed in the right common [...] before that using the pigtail with the Spring Advantage wire, I did selective third order [...] and then the tibioperoneal lesions received a [employer] [place] Emerge 3.0 x 30 that [...] By: Dorinda Li MD WT: CATH:DELGADO/ALICE/VICKY Conf#: [id number]/DID#: [id number] Authenticated by Dorinda Li MD On 12/18/2021 02:21:29 PM at 0221 PATIENT NAME: MICHAEL GAINES JR 05:54:[id number] [place] [id number] PATIENT NAME: MICHAEL GAINES JR ADMIT DATE: 12/18/21 ACCOUNT NO: [id number] ROOM NO: AGE: 61 REPORT TYPE: ELECTROCARDIOGRAM SEX: M ADMITTING PHYSICIAN: ATTENDING PHYSICIAN:Dorinda Li MD Cardiology Order: [id number] Test Reason : PRE-OP Test Date/Time Stamp: [...] at 0734 PATIENT NAME: MICHAEL GAINES JR 05:54:[id number] [address] PATIENT NAME: MICHAEL GAINES JR ADMIT DATE: 12/18/21 ACCOUNT NO: [id number] ROOM NO: AGE: 61 REPORT TYPE: ELECTROCARDIOGRAM SEX: M ADMITTING PHYSICIAN: ATTENDING PHYSICIAN:Dorinda Li MD Cardiology Order: [id number] Test Reason : PRE-OP Test Date/Time Stamp: [...] at 1225 PATIENT NAME: MICHAEL GAINES JR 07:40:[id number] [place] [address] PATIENT NAME: MICHAEL GAINES JR ADMIT DATE: ACCOUNT NO: [id number] ROOM NO: AGE: 61 REPORT TYPE: HISTORY [...] ILLNESS: Michael is a 61-year-old patient of [facility] with known significant atherosclerotic cardiovascular disease, who was last at [facility] on 10/30/2021. The patient has had [...] By: Dorinda Li MD WT: HP:NITISH/ALICE/VICKY Conf#: [id number]/DID#: [id number] Authenticated and Edited by Dorinda Li MD On 12/10/21 4:26:42 PM at 0429 PATIENT NAME: MICHAEL GAINES JR 09:59:[id number] [place] [address] PATIENT NAME: MICHAEL GAINES JR ADMIT DATE: 10/30/21 ACCOUNT NO: [id number] ROOM NO: AGE: 61 REPORT TYPE: CARDIAC CATHETERIZATION REPORT SEX: M ADMITTING PHYSICIAN: ATTENDING PHYSICIAN:Dorinda Li MD PROCEDURE DATE: 10/30/2021 CARDIOVASCULAR PROCEDURE GREASE PACKER: Dorinda Li MD INDICATION FOR THE PROCEDURE: Severe peripheral artery disease with leg pains and abnormal ABIs, restenosis on the right SFA. TITLE OF THE PROCEDURE: Selective bilateral iliofemoral angiograms, third order on the right, first order on the left, PRICING LEAD and stenting of the right external iliac, [...] femoral artery area for local anesthesia. A 6-Monegasque sheath was put in the left common [...] proceeded with the Viper wire using the Edwards catheter. Initially, we used the Spring Advantage wire to get the up and [...] well. Dictated By: Dorinda Li MD WT: CATH:DELAGDO/ALICE/VICKY Conf#: [id number]/DID#: [id number] Authenticated by Dorinda Li MD On 10/30/2021 01:23:58 PM at 0123 PATIENT NAME: MICHAEL GAINES JR 07:04:[id number] [place] [id number] PATIENT NAME: MICHAEL GAINES JR ADMIT DATE: 10/30/21 ACCOUNT NO: [id number] ROOM NO: AGE: 61 REPORT TYPE: ELECTROCARDIOGRAM SEX: M ADMITTING PHYSICIAN: ATTENDING PHYSICIAN:Dorinda Li MD Order: [id number] Test Reason : PRE-OP Test Date/Time Stamp: [...] at 1317 PATIENT NAME: MICHAEL GAINES JR 07:11:[id number] [address] PATIENT NAME: MICHAEL GAINES JR ADMIT DATE: ACCOUNT NO: [id number] ROOM NO: AGE: 61 REPORT TYPE: HISTORY AND PHYSICAL SEX: M ADMITTING PHYSICIAN: ATTENDING PHYSICIAN:Dorinda Li MD PATIENT NAME: MICHAEL GAINES JR ADMIT DATE:10/30/2021 ADMISSION DATE: 10/30/2021 GREASE PACKER: Dorinda Li MD REASON FOR ADMISSION: Staged intervention on his right lower extremity in a patient with known severe atherosclerotic cardiovascular disease and recent intervention on his left lower extremity. HISTORY OF PRESENT ILLNESS: Michael is a 61-year-old patient with known atherosclerotic cardiovascular disease, who was last at [facility] on 10/02/2021. He had symptomatic peripheral [...] By: Dorinda Li MD WT: HP:NITISH/ALICE/VICKY Conf#: [id number]/DID#: [id number] Authenticated and Edited by Dorinda Li MD On 10/29/21 5:04:51 PM at 0507 PATIENT NAME: MICHAEL GAINES JR [id number] [address] PATIENT NAME: MICHAEL GAINES JR ADMIT DATE: 10/02/21 ACCOUNT NO: [id number] ROOM NO: AGE: 61 REPORT TYPE: CARDIAC CATHETERIZATION REPORT SEX: M ADMITTING PHYSICIAN: ATTENDING PHYSICIAN:Dorinda Li MD PROCEDURE DATE: 10/02/2021 GREASE PACKER: Dorinda Li M.D. INDICATION FOR THE PROCEDURE: Leg pain, peripheral arterial disease. TITLE OF THE PROCEDURE: 1. Abdominal and bilateral selective iliofemoral angiograms. 2. First order angiogram with right lower extremity. 3. Third order angiogram of the left lower extremity. 4. Drug-eluting stent of the left external iliac. 5. PRICING LEAD of the left external iliac. 6. Sealing [...] femoral artery area for local anesthesia. A 6-Monegasque sheath was placed in the right common [...] By: Dorinda Li MD WT: CATH:DELGADO/ALICE/VICKY Conf#: [id number]/DID#: [id number] Authenticated by Dorinda Li MD On 10/02/2021 12:42:48 PM at 1242 PATIENT NAME: MICHAEL GAINES JR [id number] [place] [id number] PATIENT NAME: MICHAEL GAINES JR ADMIT DATE: 10/02/21 ACCOUNT NO: [id number] ROOM NO: AGE: 61 REPORT TYPE: ELECTROCARDIOGRAM SEX: M ADMITTING PHYSICIAN: ATTENDING PHYSICIAN:Dorinda Li MD Order: [id number] Test Reason : PRE-OP Test Date/Time Stamp: [...] at 1256 PATIENT NAME: MICHAEL GAINES JR [id number] [address] PATIENT NAME: MICHAEL GAINES JR ADMIT DATE: ACCOUNT NO: [id number] ROOM NO: AGE: 61 REPORT TYPE: HISTORY AND PHYSICAL SEX: M ADMITTING PHYSICIAN: ATTENDING PHYSICIAN:Dorinda Li MD PATIENT NAME: MICHAEL GAINES JR ADMIT DATE:10/02/2021 ADMISSION DATE: 10/02/2021 ADMISSION HISTORY AND PHYSICAL GREASE PACKER: Dorinda Li MD REASON FOR ADMISSION: Symptomatic [...] orders. Dictated By: Dorinda Li MD WT: HP:NITIHS/ALICE/VICKY Conf#: [id number]/DID#: [id number] Authenticated and Edited by Dorinda Li MD On 10/01/21 4:37:59 PM at 0441 PATIENT NAME: MICHAEL GAINES JR
--- NOTE | 2024-10-01 13:20 | RAD REPORT ---
EXAM: CT brain without contrast HISTORY: Syncope COMPARISON: 2019 TECHNIQUE: Multiple contiguous axial images were obtained and a CT of the brain without contrast.. Sagittal and coronal reconstruction performed. Automated exposure control, adjustment of the mA and/or kV according to patient size, and/or iterative reconstruction. Unless otherwise specified, incidental f indings do not require dedicated imaging follow-up FINDINGS: An intracranial bleed is not seen Ventricles are normal caliber No extra-axial fluid collection noted Moderate low-density paraventricular, deep and subcortical white matter probably ischemic changes sec ondary to small vessel disease Small low-density left cerebellum may represent an old infarct. Small low-density right and left thal amus and right basal ganglia may represent old lacunar infarcts. No fluid within the visualized sinuses or mastoids noted. IMPRESSION: No acute intracranial abnormality noted. If the patient continues to have symptoms to suggest an acute intracranial abnormality then MRI of th e brain would be recommended.
[2024-10-01 13:59] LABS: Absolute Eosinophils 0.1 K/uL (0-0.5); Absolute Lymphocytes (CBC) 1.3 K/uL (0.7-4.9); Absolute Monocytes 0.7 K/uL (0.1-1.3); Absolute Neutrophil 4.4 K/uL (1.8-8.0); Basophils % 0.7 % (0-1.3); Eosinophils % 1.7 % (0-4.4); Hemoglobin 8.9 g/dL (13.6-17.9); Lymphocytes % 19.4 % (15.3-44.8); MCH 30.8 pg (27.0-35.0); MCHC 34.4 g/dL (32.0-36.0); MCV 89.4 fL (80-100); MPV 9.3 fL (7.6-11.3); Monocytes % 10.5 % (3.3-12.3); Neutrophils % 67.7 % (41.7-73.7); Platelets 212 thou/uL (152-406); RBC Red Blood Cell Count 2.91 M/uL (4.33-5.43)
[2024-10-01 14:03] LABS: PT Prothrombin Time 11.6 SECONDS (10-13.0); PTT, Activated Partial Thromb 32.7 SECONDS (27.2-37.4); Protime INR 1.02
[2024-10-01 14:56] LABS: Anion Gap 12.8 mEq/L (5.0-15.0); Potassium 3.8 mEq/L (3.5-5.1)
[2024-10-01 14:57] LABS: Albumin 2.7 g/dL (3.4-5.0); Albumin/Globulin Ratio 0.8 (1.1-1.8); Bilirubin Direct 0.2 mg/dL (0-0.2); Bilirubin Indirect, Calculated 0.6 mg/dL (0.2-0.8); Bilirubin Total 0.8 mg/dL (0.2-1.0); Globulin 3.2 g/dL (2.3-3.5); Protein, Total 5.9 g/dL (6.4-8.2)
[2024-10-01 14:58] LABS: Magnesium 2.2; Troponin High Sensitivity 12.4 (<58.9)
--- NOTE | 2024-10-01 15:49 | ER ---
Nurse's Notes [facility] Name: Michael Gaines Jr Age: 64 yrs Sex: Male : 1960 Arrival Date: 10/01/2024 Time: 12:24 Bed 15 Private MD: Diagnosis: Syncope;Anemia, unspecified;Dehydration Presentation: 10/01 12:25 Chief complaint: EMS states: DIZZINESS AND LOW BP AT HOME. PER EMS, +ORTHOSTATIC bp HYPOTENSION ON SCENE. Coronavirus screen: At this time, the client does not indicate any symptoms associated with coronavirus-19. Ebola Screen: No symptoms or risks identified at this time. Initial Sepsis Screen: Does the patient meet any 2 criteria? No. Patient's initial sepsis screen is negative. Does the patient have a suspected source of infection? No. Patient's initial sepsis screen is negative. Risk Assessment: Do you want to hurt yourself or someone else? Patient reports no desire to harm self or others. Onset of symptoms was October 01, 2024. Care prior to arrival: IV initiated. 22 GA, in the right hand, Glucose check: 226. 12:25 Method Of Arrival: EMS: [facility] bp 12:25 Acuity: CRIS 3 bp Triage Assessment: 12:27 General: Appears in no apparent distress. comfortable, Behavior is calm, cooperative, bp appropriate for age. Pain: Denies pain. EENT: No deficits noted. Neuro: No deficits noted. Cardiovascular: Rhythm is sinus rhythm. Respiratory: No deficits noted. GI: No signs and/or symptoms were reported involving the gastrointestinal system. : No signs and/or symptoms were reported regarding the genitourinary system. Derm: No deficits noted. Musculoskeletal: No deficits noted. Historical: - Allergies: 12:27 No Known Allergies; bp - PMHx: 12:27 CVA; kidney disease; diabetes mellitus; Hypertensive disorder; bp - PSHx: 12:27 toe amputations; Appendectomy; bp - Immunization history:: Adult Immunizations up to date. - Infectious Disease History:: Denies. - Social history:: Smoking status: Patient denies any tobacco usage or history of. - Family history:: not pertinent. - Hospitalizations: : Patient was recently seen at. Screenin:[facility] ED Fall Risk Assessment (Adult) History of falling in the last 3 months, bp including since admission Yes- physiologic fall (2 pts) Confusion or Disorientation No (0 pts) Intoxicated or Sedated No (0 pts) Impaired Gait Yes (1 pt) Mobility Assist Device Used No (0 pt) Altered Elimination No (0 pt) Score/Fall Risk Level 3 or more points = High Risk Oriented to surroundings. Abuse screen: Denies threats or abuse. Denies injuries from another. Nutritional screening: No deficits noted. Tuberculosis screening: No symptoms or risk factors identified. Assessment: 12:29 General: Appears in no apparent distress. comfortable. bp 15:23 Reassessment: Patient appears in no apparent distress at this time. Patient is alert, bp oriented x 3, equal unlabored respirations, skin warm/dry/pink. Vital Signs: 12:25 BP 117 / 86; Pulse 58; Resp 16; Temp 98; Pulse Ox 99% ; bp 15:19 BP 155 / 62; Pulse 67; Resp 16; Pulse Ox 99% ; bp ED Course: 12:25 Patient arrived in ED. bp 12:25 Quan Avila MD is Attending Physician. rn 12:27 Triage completed. bp 12:27 Arm band placed on. bp 12:29 Patient has correct armband on for positive identification. Bed in low position. bp 12:29 Maintain EMS IV. Dressing intact. Good blood return noted. Site clean \T\ dry. Gauge \T\ bp site: 22 RHAND. Flushed with 10 mL NS. 12:30 Bam Leal, RN is Primary Nurse. bp 13:11 CT Head Brain wo Cont In Process Unspecified. EDMS 14:02 Chest Single View XRAY In Process Unspecified. EDMS 14:02 XRAY Forearm RIGHT In Process Unspecified. EDMS 15:23 No provider procedures requiring assistance completed. bp Administered Medications: No medications were administered Medication: 12:29 VIS not applicable for this client. bp Outcome: 15:48 Discharge ordered by . rn 16:58 Discharged to home via wheelchair, with family, ss 16:58 Condition: good 16:58 Discharge instructions given to patient, family, Instructed on discharge instructions, follow up and referral plans. Demonstrated understanding of instructions, follow-up care, medications, 16:59 Patient left the ED. ss Signatures: Dispatcher [employer] EDNM Quan Avila MD MD rn Blanchard, Shelby, RN RN Bam Singh, RN RN bp
--- NOTE | 2024-10-01 15:49 | EDPHYS ---
Physician Documentation [facility] Name: Michael Gaines Jr Age: 64 yrs Sex: Male : 1960 Arrival Date: 10/01/2024 Time: 12:24 Bed 15 Private MD: ED Physician Quan Avila HPI: 10/01 15:28 This 64 yrs old Male presents to ER via EMS with complaints of Blood Pressure rn Problem. 15:28 The patient has experienced syncope. Onset: The symptoms/episode began/occurred just rn prior to arrival. Duration: This was a single episode. Associated injury: The patient did not suffer any apparent associated injury. Current symptoms: Currently, the patient is not experiencing any symptoms. The patient has not experienced similar symptoms in the past. The patient has been recently seen by a physician:. Patient reports was at home, got up, had syncopal episode, fell to ground but denies any injuries. 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 States he ate dinner but has not eaten anything today. states not drinking water. No other medication changes. No blood pressure medication changes. EMS noted mild hypotension at home and thought to be orthostatic, improved blood pressure actually hypertensive following 300 cc bolus of NS by EMS. Patient denies any fever or chills. No chest pain or shortness of breath. No hemoptysis. No abdominal pain. No vomiting or diarrhea. Denies any injury from fall.. Historical: - Allergies: 12:27 No Known Allergies; bp - PMHx: 12:27 CVA; kidney disease; diabetes mellitus; Hypertensive disorder; bp - PSHx: 12:27 toe amputations; Appendectomy; bp - Immunization history:: Adult Immunizations up to date. - Infectious Disease History:: Denies. - Social history:: Smoking status: Patient denies any tobacco usage or history of. - Family history:: not pertinent. - Hospitalizations: : Patient was recently seen at. ROS: 15:28 Constitutional: Negative for fever, chills, and weight loss, Neck: Negative for neck rn pain or injury Cardiovascular: Negative for chest pain, palpitations, and edema, Respiratory: Negative for shortness of breath, cough, wheezing, and pleuritic chest pain, Abdomen/GI: Negative for abdominal pain, nausea, vomiting, diarrhea, and constipation, Back: Negative for injury and pain, MS/Extremity: Negative for injury and deformity, Skin: Negative for injury, rash, and discoloration, Neuro: Positive for generalized weakness Exam: 15:28 Constitutional: This is a well developed, well nourished patient who is awake, alert, rn no acute distress, laying in bed with legs crossed reading newspaper ENT: Dry mucous membranes Cardiovascular: Regular rate and rhythm. No pulse deficits. Respiratory: Speaking full sentences, unlabored. Abdomen/GI: Soft, nontender Skin: No evidence of infection, left lower extremity wound is clean dry and intact. No signs of cellulitis or cyanosis. MS/ Extremity: Warm extremities Neuro: Awake and alert, GCS 15, oriented to person, place, time, and situation. Cranial nerves II-XII grossly intact. Motor strength 5/5 in all extremities. Sensory grossly intact. Cerebellar exam normal. 15:45 ECG was reviewed by the Attending Physician. rn Vital Signs: 12:25 BP 117 / 86; Pulse 58; Resp 16; Temp 98; Pulse Ox 99% ; bp 15:19 BP 155 / 62; Pulse 67; Resp 16; Pulse Ox 99% ; bp MDM: 12:25 Medical Screening Exam initiated rn 15:45 Differential Diagnosis: cardiac arrhythmia, emotional response, idiopathic syncope, rn vasovagal episode, Dehydration, medication side effect. Data reviewed: vital signs, nurses notes, lab test result(s), EKG, radiologic studies. 15:46 Counseling: I had a detailed discussion with the patient and/or guardian regarding the rn historical points, exam findings, and any diagnostic results supporting the discharge/admit diagnosis, the presence of at least one elevated blood pressure reading (>120/80) during this emergency department visit, lab results, radiology results, the need for outpatient follow up, to return to the emergency department if symptoms worsen or persist or if there are any questions or concerns that arise at home. Response to treatment: the patient's symptoms have resolved after treatment, the patient's condition has returned to base line, the patient is now symptom free, and as a result, I will discharge patient. ED course: No acute findings in workup. CT shows at least 3 old infarcts which patient was aware of. No abnormalities postsurgically of the left lower extremity. Patient found to be anemic, denies any blood in stool or GI bleed, patient reports has chronic anemia and takes ferrous sulfate at home. Patient also reports outpatient stool studies were negative for fecal Hemoccult. Patient back to baseline and would like to go home. Troponin negative. ECG without ischemia. No oxygen requirement, no dyspnea and no chest pain to suggest PE. I have personally reviewed all of the results, including but not limited to blood tests and imaging deemed necessary to safely discharge this patient at this time. All results given to and printed out for patient. I personally went over all the results with the patient and answered all questions. Patient will follow-up with PCP and or specialist as discussed. Return precautions given and understood.. 10/01 12:52 Order name: Basic Metabolic Panel; Complete Time: 15: rn 10/01 12:52 Order name: CBC with Diff; Complete Time: 15: rn 10/01 12:52 Order name: Hepatic Function; Complete Time: 15: rn 10/01 12:52 Order name: Magnesium; Complete Time: 15: rn 10/01 12:52 Order name: Protime (+inr); Complete Time: 15: rn 10/01 12:52 Order name: Ptt, Activated; Complete Time: 15: rn 10/01 12:52 Order name: Troponin High Sensitivity; Complete Time: 15: rn 10/01 12:52 Order name: CT Head Brain wo Cont; Complete Time: 13: rn 10/01 12:52 Order name: Chest Single View XRAY; Complete Time: 16:23 rn 10/01 12:52 Order name: XRAY Forearm RIGHT; Complete Time: 16:23 rn 10/01 12:52 Order name: Cardiac monitoring; Complete Time: 13:28 rn 10/01 12:52 Order name: EKG - Nurse/Tech; Complete Time: 14:06 rn 10/01 12:52 Order name: IV Saline Lock; Complete Time: 13: rn 10/01 12:52 Order name: Labs collected and sent; Complete Time: 13: rn 10/01 12:52 Order name: O2 Per Protocol; Complete Time: : rn 10/01 12:52 Order name: O2 Sat Monitoring; Complete Time: 13:28 rn EC:45 Rate is 60 beats/min. Rhythm is regular. QRS [place] is Normal. ND interval is normal. QRS rn interval is normal. QT interval is normal. No Q waves. T waves are Normal. No ST changes noted. Clinical impression: NSR w/ Non-specific ST/T Changes. Interpreted by me. Reviewed by me. 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 EDNM EDNM 12:53 12:53 CBC+H.LAB.BRZ ordered. EDNM EDMS 12:53 12:53 HEPATIC FUNCTION+C.LAB.BRZ ordered. EDNM EDMS 12:53 12:53 MAGNESIUM+C.LAB.BRZ ordered. EDNM EDMS 12:53 12:53 PROTIME (+INR)+COAG.LAB.BRZ ordered. EDNM EDMS 12:53 12:53 PTT, ACTIVATED+COAG.LAB.BRZ ordered. EDNM EDMS 12:53 12:53 Troponin High Sensitivity+C.LAB.BRZ ordered. EDNM EDMS 12:53 12:53 Head Brain Wo Cont+CT.RAD.BRZ ordered. EDNM EDMS 12:53 12:53 Chest Single View+RAD.RAD.BRZ ordered. EDNM EDMS 12:54 12:54 Forearm Right+RAD.RAD.BRZ ordered. EDNM EDNM 15:30 15:28 Constitutional: Negative for fever, chills, and weight loss, Cardiovascular: rn Negative for chest pain, palpitations, and edema, Respiratory: Negative for shortness of breath, cough, wheezing, and pleuritic chest pain, Abdomen/GI: Negative for abdominal pain, nausea, vomiting, diarrhea, and constipation, Back: Negative for injury and pain, MS/Extremity: Negative for injury and deformity, Skin: Negative for injury, rash, and discoloration, Neuro: Positive for generalized weakness rn 15:48 15:46 ED course: No acute findings in workup. CT shows at least 3 old infarcts which rn patient was aware of. No abnormalities postsurgically of the left lower extremity. Patient found to be anemic, denies any blood in stool or GI bleed, patient reports has chronic anemia and takes ferrous sulfate at home. Patient also reports outpatient stool studies were negative for fecal Hemoccult. Patient back to baseline and would like to go home. Troponin negative. ECG without ischemia. No oxygen requirement, no dyspnea and no chest pain to suggest PE.. rn
--- NOTE | 2024-10-01 16:22 | RAD REPORT ---
EXAMINATION: Forearm Right VIEWS: As above CLINICAL INDICATION: Male, 64 years old. fall;Pain COMPARISON: No prior exam. IMPRESSION: No acute fracture. No acute soft tissue abnormality.
--- NOTE | 2024-10-01 16:23 | RAD REPORT ---
EXAM: Chest Single View HISTORY: 64 years Male syncope COMPARISON: 04/22/2024 FINDINGS: LUNGS/PLEURA: The lungs are clear. No pleural effusions or pneumothorax. No pulmonary edema. CARDIAC/MEDIASTINUM: The cardiac silhouette is within normal limits. UPPER ABDOMEN: No significant abnormality. BONES: No acute abnormality. LINES/TUBES/OTHER: N/A IMPRESSION: No evidence of acute cardiopulmonary disease. No significant change from prior.
[2024-10-01 17:03] VITALS: TEMP 98; O2SAT 99
[2024-10-01 17:05] VITALS: BP 155/62
--- NOTE | 2024-10-02 12:00 | EKG ---
Test Date: 2024-10-01 Test Time: 13:46:44 Tire Tester: BP MEASUREMENT RESULTS: Intervals: Rate: 60 OK: 164 QRSD: 78 QT: 450 QTc: 450 [place]: P: 71 OK: 164 QRS: 22 T: 7 INTERPRETIVE STATEMENTS: Normal sinus rhythm Nonspecific T wave abnormality Abnormal ECG Compared to ECG 09/19/2024 12:12:10 T-wave abnormality now present Left-axis deviation no longer present ST (T wave) deviation no longer present Electronically Signed On 10-02-24 11:57:38 CDT by Raza Foley
== END 2024-10-01 16:59 | disposition home or self-care (01) ==
LOC: ER 12:24
DX: D64.9 Anemia, unspecified (principal); E86.0 Dehydration; E11.22 Type 2 diabetes mellitus with diabetic chronic kidney disease; N18.9 Chronic kidney disease, unspecified; I10 Essential (primary) hypertension
CPT/HCPCS: 36415; 70450; 71045; 80048; 80076; 83735; 84484; 85025; 85610; 85730; 93005; 99283